=== PATIENT | female | born 1995 | race Caucasian/White ===

== ENCOUNTER 2018-07-15 22:06 | Emergency (ER) | payer OTHER ==
[2018-07-15 22:13] VITALS: TEMP 97.9
[2018-07-15] MEDS ORDERED: ONDANSETRON 4 MG/2 ML VIAL IVP STA (22:28)
[2018-07-15] MEDS ORDERED: SODIUM CHLORIDE 0.9% 1,000 ML IV STA (22:28)
--- NOTE | 2018-07-15 22:32 | ED ---
Abdominal Pain HPI - General Chief Complaint: Abdominal Pain Stated Complaint: Abd discomfort Time Seen by Provider: 07/15/18 22:28 Source: patient Mode of arrival: ambulatory Limitations: no limitations - History of Present Illness Initial Comments: Patient is a previously healthy 22-year-old female who presents the emergency department today for evaluation of epigastric abdominal discomfort and nausea which is been intermittent for a couple days duration but worse today. Patient reports that she's been feeling epigastric discomfort after eating and occasional vague abdominal discomfort throughout the abdomen which occurs intermittently not related to eating. Patient reports that she's been having waves of nausea which seemed to have an worse at nighttime or when she is sleeping. She reports that her last menstrual cycle was June 19 but she is sexually active there is possibility that she is . - Related Data Home Medications Medication Instructions Recorded Confirmed Albuterol Inhaler [Ventolin Hfa 1 - 2 puff INHALATION RT-Q6H PRN 07/15/18 Inhaler] Citalopram Hydrobromide 20 mg PO DAILY 07/15/18 07/15/18 [Citalopram HBr] Ibuprofen [Motrin] 800 mg PO TID PRN 07/15/18 07/15/18 levETIRAcetam 500 mg PO Q12H 07/15/18 07/15/18 metFORMIN HCL 500 mg PO BID 07/15/18 07/15/18 Allergies Allergy/AdvReac Type Severity Reaction Status Date / Time No Known Allergies Allergy Verified 07/15/18 22:42 Review of Systems ROS Statement: Those systems with pertinent positive or pertinent negative responses have been documented in the HPI. ROS Other: All systems not noted in ROS Statement are negative. Past Medical History Past Medical History: Asthma, Seizure Disorder Additional Past Medical History / Comment(s): PCOS, sciatica History of Any Multi-Drug Resistant Organisms: None Reported Past Surgical History: No Surgical Hx Reported Past Psychological History: Anxiety, Depression Smoking Status: Never smoker Past Alcohol Use History: Rare Past Drug Use History: None Reported General Exam - General Exam Comments Initial Comments: Physical Exam GENERAL: Morbidly obese Patient is well-developed and well-nourished. Patient is nontoxic and well- hydrated and is in no distress. HENT: Normocephalic, Atraumatic. EYES: PERRL, EOMI PULMONARY: Unlabored respirations. No audible rales rhonchi or wheezing was noted. CARDIOVASCULAR: There is a regular rate and rhythm without any murmurs gallops or rubs. ABDOMEN: Obese Negative Jones sign Soft and nontender with normal bowel sounds. SKIN: Skin is clear with no lesions or rashes and otherwise unremarkable. : Deferred NEUROLOGIC: Patient is alert and oriented x3. Moving all extremities spontaneously MUSCULOSKELETAL: Normal extremities with adequate strength and full range of motion. No lower extremity swelling or edema. No calf tenderness. PSYCHIATRIC: Normal psychiatric evaluation. Limitations: no limitations Limitations: no limitations Course Vital Signs 07/15/18 07/16/18 22:08 01:10 Temperature 97.9 F Pulse Rate 104 H 80 Respiratory 18 16 Rate Blood Pressure 145/95 151/93 O2 Sat by Pulse 100 98 Oximetry Medical Decision Making - Medical Decision Making The patient was seen and evaluated history was obtained from the patient Patient with intermittent waves of nausea as well as occasional epigastric abdominal discomfort Labs and imaging were ordered and sent Zofran was given as well as IV fluids Labs reveal mildly elevated transaminases ultrasound of the gallbladder was ordered which revealed no acute findings All results were discussed with the patient, patient's mother does have a history of autoimmune hepatitis, I advised patient she needs follow-up with primary care for possible referral to GI for further evaluation of abnormal transaminases. I will discharge patient home with oral Zofran as she is feeling resolved at time of reevaluation patient's agreeable to plan for discharge home all questions pertaining care were answered patient discharged home in stable condition. - Lab Data Result diagrams: 07/15/18 22:40 07/15/18 22:40 Lab Results 07/15/18 07/15/18 07/15/18 Range/Units 22:35 22:35 22:40 WBC (3.8-10.6) k/uL RBC (3.80-5.40) m/uL Hgb (11.4-16.0) gm/dL Hct (34.0-46.0) % MCV (80.0-100.0) fL MCH (25.0-35.0) pg MCHC (31.0-37.0) g/dL RDW (11.5-15.5) % Plt Count (150-450) k/uL Neutrophils % % Lymphocytes % % Monocytes % % Eosinophils % % Basophils % % Neutrophils # (1.3-7.7) k/uL Lymphocytes # (1.0-4.8) k/uL Monocytes # (0-1.0) k/uL Eosinophils # (0-0.7) k/uL Basophils # (0-0.2) k/uL Sodium 140 (137-145) mmol/L Potassium 3.8 (3.5-5.1) mmol/L Chloride 104 (98-107) mmol/L Carbon Dioxide 24 (22-30) mmol/L Anion Gap 12 mmol/L BUN 13 (7-17) mg/dL Creatinine 0.56 (0.52-1.04) mg/dL Est GFR (CKD-EPI)AfAm >90 (>60 ml/min/1.73 sqM) Est GFR (CKD-EPI)NonAf >90 (>60 ml/min/1.73 sqM) Glucose 122 H (74-99) mg/dL Calcium 9.3 (8.4-10.2) mg/dL Total Bilirubin 0.5 (0.2-1.3) mg/dL AST 56 H (14-36) U/L ALT 78 H (9-52) U/L Alkaline Phosphatase 67 (38-126) U/L Total Protein 7.3 (6.3-8.2) g/dL Albumin 4.2 (3.5-5.0) g/dL Amylase 45 (30-110) U/L Lipase 102 (23-300) U/L Urine Color Yellow Urine Appearance Cloudy H (Clear) Urine pH 6.0 (5.0-8.0) Ur Specific [place] 1.021 (1.001-1.035) Urine Protein 1+ H (Negative) Urine Glucose (UA) Negative (Negative) Urine Ketones Negative (Negative) Urine Blood Negative (Negative) Urine Nitrite Negative (Negative) Urine Bilirubin Negative (Negative) Urine Urobilinogen 2.0 (<2.0) mg/dL Ur Leukocyte Esterase Negative (Negative) Urine RBC <1 (0-5) /hpf Urine WBC 5 (0-5) /hpf Ur Squamous Epith Cells 14 H (0-4) /hpf Urine Mucus Few H (None) /hpf Urine HCG, Qual Not Detected (Not Detectd) 07/15/18 Range/Units 22:40 WBC 5.5 (3.8-10.6) k/uL RBC 4.99 (3.80-5.40) m/uL Hgb 13.9 (11.4-16.0) gm/dL Hct 41.1 (34.0-46.0) % MCV 82.4 (80.0-100.0) fL MCH 27.8 (25.0-35.0) pg MCHC 33.7 (31.0-37.0) g/dL RDW 14.2 (11.5-15.5) % Plt Count 252 (150-450) k/uL Neutrophils % 60 % Lymphocytes % 28 % Monocytes % 7 % Eosinophils % 2 % Basophils % 1 % Neutrophils # 3.3 (1.3-7.7) k/uL Lymphocytes # 1.5 (1.0-4.8) k/uL Monocytes # 0.4 (0-1.0) k/uL Eosinophils # 0.1 (0-0.7) k/uL Basophils # 0.0 (0-0.2) k/uL Sodium (137-145) mmol/L Potassium (3.5-5.1) mmol/L Chloride (98-107) mmol/L Carbon Dioxide (22-30) mmol/L Anion Gap mmol/L BUN (7-17) mg/dL Creatinine (0.52-1.04) mg/dL Est GFR (CKD-EPI)AfAm (>60 ml/min/1.73 sqM) Est GFR (CKD-EPI)NonAf (>60 ml/min/1.73 sqM) Glucose (74-99) mg/dL Calcium (8.4-10.2) mg/dL Total Bilirubin (0.2-1.3) mg/dL AST (14-36) U/L ALT (9-52) U/L Alkaline Phosphatase (38-126) U/L Total Protein (6.3-8.2) g/dL Albumin (3.5-5.0) g/dL Amylase (30-110) U/L Lipase (23-300) U/L Urine Color Urine Appearance (Clear) Urine pH (5.0-8.0) Ur Specific [place] (1.001-1.035) Urine Protein (Negative) Urine Glucose (UA) (Negative) Urine Ketones (Negative) Urine Blood (Negative) Urine Nitrite (Negative) Urine Bilirubin (Negative) Urine Urobilinogen (<2.0) mg/dL Ur Leukocyte Esterase (Negative) Urine RBC (0-5) /hpf Urine WBC (0-5) /hpf Ur Squamous Epith Cells (0-4) /hpf Urine Mucus (None) /hpf Urine HCG, Qual (Not Detectd) Disposition Clinical Impression: Abdominal pain, Elevated liver enzymes Disposition: HOME SELF-CARE Instructions (If sedation given, give patient instructions): Abdominal Pain (ED ) Is patient prescribed a controlled substance at d/c from ED?: No Referrals: Nonstaff,Physician [Primary Care Provider] - 1-2 days Time of Disposition: 01:03
[2018-07-15 23:02] LABS: Basophils % (A) 1 %; Eosinophils # (A) 0.1 k/uL (0-0.7); Eosinophils % (A) 2 %; HCT 41.1 % (34.0-46.0); HGB 13.9 gm/dL (11.4-16.0); Lymphocytes # (A) 1.5 k/uL (1.0-4.8); Lymphocytes % (A) 28 %; MCH 27.8 pg (25.0-35.0); MCHC 33.7 g/dL (31.0-37.0); MCV 82.4 fL (80.0-100.0); Mean Platelet Volume 7.3; Monocytes # (A) 0.4 k/uL (0-1.0); Monocytes % (A) 7 %; Neutrophils # (A) 3.3 k/uL (1.3-7.7); Neutrophils % (A) 60 %; Platelet Count 252 k/uL (150-450); RBC 4.99 m/uL (3.80-5.40); RDW 14.2 % (11.5-15.5); WBC 5.5 k/uL (3.8-10.6)
[2018-07-15 23:05] LABS: Appearance,Urine Cloudy (Clear); Bilirubin,Urine Negative (Negative); Blood,Urine Negative (Negative); Color,Urine Yellow; Glucose,Urine (UA) Negative (Negative); Ketones,Urine Negative (Negative); Leukocyte Esterase,Urine Negative (Negative); Mucus,Urine Few /hpf; Nitrite,Urine Negative (Negative); Protein,Urine 1+ (Negative); RBC,Urine <1 /hpf (0-5); Specific Gravity,Urine 1.021 (1.001-1.035); Squamous Epithelial Cell,Urine 14 /hpf (0-4); WBC,Urine 5 /hpf (0-5)
[2018-07-15 23:12] LABS: ALT 78 U/L (9-52); AST 56 U/L (14-36); Albumin 4.2 g/dL (3.5-5.0); Alkaline Phosphatase 67 U/L (38-126); Amylase 45 U/L (30-110); Anion Gap 12 mmol/L; Blood Urea Nitrogen 13 mg/dL (7-17); Calcium 9.3 mg/dL (8.4-10.2); Carbon Dioxide 24 mmol/L (22-30); Chloride 104 mmol/L (98-107); Glucose 122 mg/dL (74-99); Lipase 102 U/L (23-300); Potassium 3.8 mmol/L (3.5-5.1); Sodium 140 mmol/L (137-145); Total Bilirubin 0.5 mg/dL (0.2-1.3); Total Protein 7.3 g/dL (6.3-8.2)
--- NOTE | 2018-07-15 23:29 | XR ---
EXAM: XR Abdomen, 1 View CLINICAL HISTORY: ITS.REASON XR Reason: abdominal pain TECHNIQUE: Frontal supine view of the abdomen/pelvis. COMPARISON: No relevant prior studies available. FINDINGS: Gastrointestinal tract: Fluid levels in the colon. No dilation. Bones/joints: Unremarkable. IMPRESSION: Fluid levels in the colon. No evidence for obstruction.
--- NOTE | 2018-07-16 00:09 | US ---
EXAM: US Abdomen Limited, Right Upper Quadrant CLINICAL HISTORY: ITS.REASON US Reason: Epigastric pain ,elevated LFTs TECHNIQUE: Real-time ultrasound of the right upper quadrant with image documentation. COMPARISON: No relevant prior studies available. FINDINGS: Liver: Fatty liver. No intrahepatic bile duct dilation. Gallbladder: Unremarkable. No gallstones. Common bile duct: Unremarkable as visualized. No stones. No dilation. Pancreas: Unremarkable as visualized. Right kidney: Unremarkable. No stones. No solid mass. No hydronephrosis. IMPRESSION: No acute findings.
[2018-07-16 01:12] VITALS: BP 151/93; PULSE 80; RESP 16
== END 2018-07-16 01:10 | disposition home or self-care (01) ==
LOC: EC 22:06
DX: R74.0 Nonspecific elevation of levels of transaminase and lactic acid dehydrogenase [LDH] (principal); J45.909 Unspecified asthma, uncomplicated; G40.909 Epilepsy, unspecified, not intractable, without status epilepticus; F41.9 Anxiety disorder, unspecified; F32.9 Major depressive disorder, single episode, unspecified; Z83.79 Family history of other diseases of the digestive system; Z79.84 Long term (current) use of oral hypoglycemic drugs; Z79.899 Other long term (current) drug therapy
CPT/HCPCS: 36415; 80053; 82150; 83690; 85025; 81001; 81025; 74018; 76705; 99284; 96374; 96361; J2405

== ENCOUNTER 2018-09-04 21:13 | Emergency (ER) | payer OTHER ==
[2018-09-04 22:03] VITALS: BP 124/75; PULSE 87; RESP 18; TEMP 98.3
--- NOTE | 2018-09-04 22:17 | ED ---
ENT HPI - General Chief complaint: ENT Stated complaint: Cotton Swab lodged Rt Inner Ear Time Seen by Provider: 09/04/18 22:06 Source: patient, RN notes reviewed, old records reviewed Mode of arrival: ambulatory Limitations: no limitations - History of Present Illness Initial comments: This is a 22-year-old female the ER for evaluation, patient resents today with right ear foreign body, Q-tip stuck in right ear. Denies any other injury. Patient was using Q-tip tonight, denies any bleeding. No hearing changes MD complaint: ear pain (Right) -: minutes(s) Location: R ear Severity: moderate Severity scale (1-10): 5 Quality: aching Consistency: constant Improves with: none Worsens with: none Context- Ear: recent illness - Related Data Home Medications Medication Instructions Recorded Confirmed Albuterol Inhaler [Ventolin Hfa 1 - 2 puff INHALATION RT-Q6H PRN 07/15/18 09/04/18 Inhaler] Citalopram Hydrobromide 20 mg PO DAILY 07/15/18 09/04/18 [Citalopram HBr] Ibuprofen [Motrin] 800 mg PO TID PRN 07/15/18 09/04/18 levETIRAcetam 500 mg PO Q12H 07/15/18 09/04/18 Previous Rx's Medication Instructions Recorded metFORMIN HCL 500 mg PO BID #60 tablet 09/04/18 Allergies Allergy/AdvReac Type Severity Reaction Status Date / Time No Known Allergies Allergy Verified 09/04/18 22:23 Review of Systems ROS Statement: Those systems with pertinent positive or pertinent negative responses have been documented in the HPI. ROS Other: All systems not noted in ROS Statement are negative. Past Medical History Past Medical History: Asthma, Seizure Disorder Additional Past Medical History / Comment(s): PCOS, sciatica History of Any Multi-Drug Resistant Organisms: None Reported Past Surgical History: No Surgical Hx Reported Past Psychological History: Anxiety, Depression Smoking Status: Never smoker Past Alcohol Use History: Rare Past Drug Use History: None Reported General Exam - General Exam Comments Initial Comments: Right ear foreign body Limitations: no limitations General appearance: alert, in no apparent distress Head exam: Present: atraumatic, normocephalic, normal inspection Eye exam: Present: normal appearance, PERRL, EOMI. Absent: scleral icterus, conjunctival injection, periorbital swelling ENT exam: Present: normal exam, mucous membranes moist Neck exam: Present: normal inspection. Absent: tenderness, meningismus, lymphadenopathy Respiratory exam: Present: normal lung sounds bilaterally. Absent: respiratory distress, wheezes, rales, rhonchi, stridor Cardiovascular Exam: Present: regular rate, normal rhythm, normal heart sounds. Absent: systolic murmur, diastolic murmur, rubs, gallop, clicks GI/Abdominal exam: Present: soft, normal bowel sounds. Absent: distended, tenderness, guarding, rebound, rigid Extremities exam: Present: normal inspection, full ROM, normal capillary refill. Absent: tenderness, pedal edema, joint swelling, calf tenderness Back exam: Present: normal inspection Neurological exam: Present: alert, oriented X3, CN II-XII intact Psychiatric exam: Present: normal affect, normal mood Skin exam: Present: warm, dry, intact, normal color. Absent: rash Course Vital Signs 09/04/18 21:59 Temperature 98.3 F Pulse Rate 87 Respiratory 18 Rate Blood Pressure 124/75 O2 Sat by Pulse 96 Oximetry Procedures - Foreign Body Removal Ear Location: ear canal (R) Foreign Body Suspected: other (Head of Q-tip) If Insect Suspected: ear canal inspected; intact TM, insect seen Foreign Body Removed: yes Foreign Body Removal Technique: instrumentation Tympanic Membrane Intact: Yes Patient Tolerated Procedure: well Complications: none Medical Decision Making - Medical Decision Making 22 female right ear foreign body. Foreign body removed without event. Patient can be discharged home Disposition Clinical Impression: Foreign body in right ear Disposition: HOME SELF-CARE Condition: Good Instructions (If sedation given, give patient instructions): Ear Foreign Body (ED) Prescriptions: metFORMIN HCL 500 mg PO BID #60 tablet Is patient prescribed a controlled substance at d/c from ED?: No Referrals: Nonstaff,Physician [Primary Care Provider] - 1-2 days
== END 2018-09-04 22:36 | disposition home or self-care (01) ==
LOC: EC 21:13
DX: T16.1XXA Foreign body in right ear, initial encounter (principal); J45.909 Unspecified asthma, uncomplicated; G40.909 Epilepsy, unspecified, not intractable, without status epilepticus; F32.9 Major depressive disorder, single episode, unspecified; F41.9 Anxiety disorder, unspecified; Z79.899 Other long term (current) drug therapy
CPT/HCPCS: 69200; 99283

== ENCOUNTER 2018-10-15 19:05 | Emergency (ER) | payer OTHER ==
[2018-10-15 19:27] VITALS: BP 140/105; PULSE 99; RESP 18; TEMP 97
--- NOTE | 2018-10-15 20:03 | XR ---
EXAMINATION TYPE: XR ankle complete RT DATE OF EXAM: 10/15/2018 CLINICAL HISTORY: Pain medial malleolus. TECHNIQUE: Frontal, lateral and oblique images of the right ankle are obtained. COMPARISON: None. FINDINGS: There is no acute fracture/dislocation evident in the right ankle. The ankle mortise appe ars within normal limits. Posterior talocalcaneal spurring is noted on lateral view. Suspect os yves num. Correlate for posterior ankle impingement syndrome. Moderate soft tissue swelling over the media l malleolus is seen. IMPRESSION: As above.
--- NOTE | 2018-10-15 21:04 | ED ---
General Adult HPI - General Chief complaint: Extremity Injury, Lower Stated complaint: ankle injury Time Seen by Provider: 10/15/18 19:34 Source: patient, EMS Mode of arrival: EMS Limitations: no limitations - History of Present Illness Initial comments: Patient is a 22-year-old female presenting to emergency Department with right foot pain. Patient states that it developed over the course of the last few days. Patient states that she was playing basketball and she might have accidentally twisted it but is unsure. Patient denies any traumatic injury to the ankle region. Patient states that she developed swelling and has difficulty with weightbearing. Patient states that at rest she has no pain but it is exacerbated with plantar flexion. Patient reports taking ibuprofen for pain control. Patient reports the pain to be localized on the posterior aspect of the lower leg. Patient denies any pain with inversion or eversion of the foot. Patient denies any numbness or tingling. Patient denies calf tenderness. - Related Data Home Medications Medication Instructions Recorded Confirmed Citalopram Hydrobromide 20 mg PO DAILY 07/15/18 10/15/18 [Citalopram HBr] Ibuprofen [Motrin] 800 mg PO TID PRN 07/15/18 10/15/18 levETIRAcetam 500 mg PO Q12H 07/15/18 10/15/18 Previous Rx's Medication Instructions Recorded metFORMIN HCL 500 mg PO BID #60 tablet 09/04/18 Allergies Allergy/AdvReac Type Severity Reaction Status Date / Time No Known Allergies Allergy Verified 10/15/18 20:36 Review of Systems ROS Statement: Those systems with pertinent positive or pertinent negative responses have been documented in the HPI. ROS Other: All systems not noted in ROS Statement are negative. Past Medical History Past Medical History: Asthma, Seizure Disorder Additional Past Medical History / Comment(s): PCOS, sciatica History of Any Multi-Drug Resistant Organisms: None Reported Past Surgical History: No Surgical Hx Reported Past Psychological History: Anxiety, Depression Smoking Status: Never smoker Past Alcohol Use History: Rare Past Drug Use History: None Reported General Exam Limitations: no limitations General appearance: alert, in no apparent distress Head exam: Present: atraumatic, normocephalic, normal inspection Eye exam: Present: normal appearance ENT exam: Present: normal exam Neck exam: Present: normal inspection Respiratory exam: Present: normal lung sounds bilaterally Cardiovascular Exam: Present: regular rate, normal rhythm, normal heart sounds Right Hip exam: Present: normal inspection, full ROM Upper Leg exam: Present: normal inspection, full ROM Knee exam: Present: normal inspection, full ROM Lower Leg exam: Present: normal inspection, full ROM. Absent: Homans' sign Ankle exam: Present: swelling. Absent: tenderness (No tenderness over the medial or lateral malleolus.) Foot/Toe exam: Present: tenderness (Midfoot tenderness with plantar flexion), swelling (Midfoot). Absent: tenderness at base of 5th metatarsal Course Vital Signs 10/15/18 19:08 Temperature 97.0 F L Pulse Rate 99 Respiratory 18 Rate Blood Pressure 140/105 O2 Sat by Pulse 99 Oximetry Medical Decision Making - Medical Decision Making Patient is a 22-year-old female presenting to emergency Department with right foot swelling. X-ray obtained is suggestive of talocalcaneal spurring. Patient advised to follow-up with orthopedics. Patient advised to return to emergency department if symptoms worsen. Patient advised to keep foot elevated and ice it. Patient advised to use ibuprofen or Tylenol and alternate between them For pain control. Case discussed with physician. Disposition Clinical Impression: Acute foot pain Disposition: HOME SELF-CARE Condition: Stable Instructions (If sedation given, give patient instructions): Ankle Sprain (ED), Foot Sprain (ED) Is patient prescribed a controlled substance at d/c from ED?: No Referrals: Sima Stanton MD [Primary Care Provider] - 1-2 days Greg Mack MD [STAFF PHYSICIAN] - 1-2 days Time of Disposition: 21:00
[2018-10-15] MEDS ORDERED: KETOROLAC 30 MG/ML 1 ML VIAL IVP STA (21:15)
== END 2018-10-15 21:24 | disposition home or self-care (01) ==
LOC: EC 19:05
DX: M79.671 Pain in right foot (principal); G40.909 Epilepsy, unspecified, not intractable, without status epilepticus; F41.9 Anxiety disorder, unspecified; F32.9 Major depressive disorder, single episode, unspecified; Z79.899 Other long term (current) drug therapy
CPT/HCPCS: 73610; 99283; 96374; J1885

== ENCOUNTER → 2018-11-13 | Outpatient (CLI) | payer OTHER ==
--- NOTE | 2018-11-13 12:13 | US ---
EXAMINATION TYPE: US abdomen complete DATE OF EXAM: 11/13/2018 COMPARISON: NONE CLINICAL HISTORY: E78.5 DYSLIPIDEMIA, R74.8 ELEV LIVER ENZYMES. EXAM MEASUREMENTS: Liver Length: 19.0 cm Gallbladder Wall: 0.2 cm CBD: 0.3 cm Spleen: 11.9 cm Right Kidney: 11.3 x 4.0 x 4.9 cm Left Kidney: 11.1 x 5.3 x 5.2 cm Morbidly obese patient, technically difficult limited study. Pancreas: obscured by overlying bowel gas, limited views Liver: Increased attenuation, decreased visualization of vessels suggestive of fatty infiltrate, rodriguez sures large Gallbladder: appears wnl, visualization somewhat limited Evidence for sonographic Jones's sign: no CBD: wnl Spleen: wnl Right Kidney: appears wnl, visualization somewhat limited Left Kidney: appears wnl, visualization somewhat limited Upper IVC: wnl Abd Aorta: bifurcation obscured by overlying bowel gas, otherwise wnl IMPRESSION: 1. Increased attenuation of liver is nonspecific may be seen with fatty infiltration or diffuse hepat ocellular disease. Correlate for splenomegaly.
--- NOTE | 2018-11-13 12:14 | US ---
EXAMINATION TYPE: US transvaginal DATE OF EXAM: 11/13/2018 COMPARISON: NONE CLINICAL HISTORY: N92.1 [place]. TECHNIQUE: Transvaginal (TV). Date of LMP: 10/23/18 EXAM MEASUREMENTS: Uterus: 7.3 x 3.4 x 4.4 cm Endometrial Stripe: 0.6 cm Right Ovary: Obscured by overlying bowel gas, obesity Left Ovary: Obscured by overlying bowel gas, obesity Morbidly obese patient, technically difficult, limited study. 1. Uterus: Anteverted 2. Endometrium: wnl 3. Right Ovary: Obscured by overlying bowel gas, obesity 4. Left Ovary: Obscured by overlying bowel gas, obesity 5. Bilateral Adnexa: wnl 6. Posterior cul-de-sac: wnl IMPRESSION: 1. No acute process. Note is made the ovaries were obscured by bowel gas.
== END | disposition home or self-care (01) ==
LOC: RADUSWWP 10:45
PROVIDERS: ATTEND Family Medicine
DX: E78.5 Hyperlipidemia, unspecified (principal); R74.8 Abnormal levels of other serum enzymes; N92.1 Excessive and frequent menstruation with irregular cycle
CPT/HCPCS: 76700; 76830

== ENCOUNTER → 2018-11-20 | Outpatient (CLI) | payer OTHER ==
--- NOTE | 2018-11-20 16:11 | MR ---
EXAMINATION TYPE: MR brain wo con DATE OF EXAM: 11/20/2018 COMPARISON: NONE HISTORY: Seizure TECHNIQUE: Multiplanar, multisequence imaging of the brain and brainstem is performed without IV cont rast. FINDINGS: Diffusion weighted images demonstrate no evidence of a recent infarct or other diffusion abnormality. There is no extraaxial fluid collection or significant white matter signal abnormality. The ventricu lar system and cisternal spaces are normal in size and appearance. The brain volume is age appropria te. T2 coronal weighted images show hippocampal gyri to appear symmetric and felt within normal limit s. Midline structures demonstrate normal morphology. The craniocervical junction appears within normal limits. Normal vascular flow voids are present. The visualized sinuses are clear and the globes are i ntact. IMPRESSION: Unremarkable study.
== END | disposition home or self-care (01) ==
LOC: RADMRIMAIN 15:17
PROVIDERS: ATTEND Psychiatry & Neurology Neurology
DX: G40.B09 Juvenile myoclonic epilepsy, not intractable, without status epilepticus (principal)
CPT/HCPCS: 70551

== ENCOUNTER 2019-01-23 02:49 | Emergency (ER) | payer OTHER ==
[2019-01-23 03:02] VITALS: BP 140/89; PULSE 69; RESP 19; TEMP 97.7
--- NOTE | 2019-01-23 03:08 | ED ---
Abdominal Pain HPI - General Chief Complaint: Abdominal Pain Stated Complaint: abd cramping,vaginal bleeding Time Seen by Provider: 01/23/19 03:05 Source: patient Mode of arrival: ambulatory Limitations: no limitations - History of Present Illness Initial Comments: The patient is a 23-year-old female with a history of PCO S and irregular menses who presents the ER today for evaluation of a heavy menstrual cycle since been going on for 4 days. Patient reports that she complains very light menstrual cycles and only needs to use a panty liner may be one tampon. She reports that for the past 2 days she's been needing multiple tampon Saturday which is atypical for her, she states that she read online that heavy bleeding could indicate a miscarriage. Patient has not missed any. She had not had a positive test or taken a home test but decided to come to the ER for evaluation. - Related Data Home Medications Medication Instructions Recorded Confirmed Citalopram Hydrobromide 20 mg PO DAILY 07/15/18 10/15/18 [Citalopram HBr] Ibuprofen [Motrin] 800 mg PO TID PRN 07/15/18 10/15/18 levETIRAcetam 500 mg PO Q12H 07/15/18 10/15/18 Previous Rx's Medication Instructions Recorded metFORMIN HCL 500 mg PO BID #60 tablet 09/04/18 Allergies Allergy/AdvReac Type Severity Reaction Status Date / Time No Known Allergies Allergy Verified 10/15/18 20:36 Review of Systems ROS Statement: Those systems with pertinent positive or pertinent negative responses have been documented in the HPI. ROS Other: All systems not noted in ROS Statement are negative. Past Medical History Past Medical History: Asthma, Seizure Disorder Additional Past Medical History / Comment(s): PCOS, sciatica History of Any Multi-Drug Resistant Organisms: None Reported Past Surgical History: No Surgical Hx Reported Past Psychological History: Anxiety, Depression Smoking Status: Never smoker Past Alcohol Use History: Rare Past Drug Use History: None Reported General Exam - General Exam Comments Initial Comments: Physical Exam GENERAL: Morbidly obese HENT: Normocephalic, Atraumatic. EYES: PERRL, EOMI No conjunctival pallor PULMONARY: Unlabored respirations. No audible rales rhonchi or wheezing was noted. CARDIOVASCULAR: There is a regular rate and rhythm without any murmurs gallops or rubs. ABDOMEN: Soft and nontender with normal bowel sounds. SKIN: Skin is clear with no lesions or rashes and otherwise unremarkable. : Deferred NEUROLOGIC: Patient is alert and oriented x3. Moving all extremities spontaneously MUSCULOSKELETAL: Normal extremities with adequate strength and full range of motion. No lower extremity swelling or edema. No calf tenderness. PSYCHIATRIC: Normal psychiatric evaluation. 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 Patient did see gynecology in the past 2 months and had a normal exam and normal Pap. - Lab Data Lab Results 01/23/19 01/23/19 Range/Units 03:30 03:30 Urine Color Light Yellow Urine Appearance Clear (Clear) Urine pH 5.5 (5.0-8.0) Ur Specific Rulo 1.003 (1.001-1.035) Urine Protein Negative (Negative) Urine Glucose (UA) Negative (Negative) Urine Ketones Negative (Negative) Urine Blood Moderate H (Negative) Urine Nitrite Negative (Negative) Urine Bilirubin Negative (Negative) Urine Urobilinogen <2.0 (<2.0) mg/dL Ur Leukocyte Esterase Negative (Negative) Urine RBC 1 (0-5) /hpf Urine WBC <1 (0-5) /hpf Ur Squamous Epith Cells 1 (0-4) /hpf Urine Bacteria Rare H (None) /hpf Urine HCG, Qual Not Detected (Not Detectd) Disposition Clinical Impression: Heavy menstrual bleeding Disposition: HOME SELF-CARE Condition: Stable Instructions (If sedation given, give patient instructions): Dysmenorrhea (ED), Menorrhagia (ED) Is patient prescribed a controlled substance at d/c from ED?: No Referrals: Sima Stanton MD [Primary Care Provider] - 1-2 days
[2019-01-23 03:48] LABS: Appearance,Urine Clear (Clear); Bacteria,Urine Rare /hpf; Bilirubin,Urine Negative (Negative); Blood,Urine Moderate (Negative); Color,Urine Light Yellow; Glucose,Urine (UA) Negative (Negative); Ketones,Urine Negative (Negative); Leukocyte Esterase,Urine Negative (Negative); Nitrite,Urine Negative (Negative); PH, Urine 5.5 (5.0-8.0); Protein,Urine Negative (Negative); RBC,Urine 1 /hpf (0-5); Specific Gravity,Urine 1.003 (1.001-1.035); Squamous Epithelial Cell,Urine 1 /hpf (0-4); Urobilinogen,Urine <2.0 mg/dL (<2.0); WBC,Urine <1 /hpf (0-5)
== END 2019-01-23 04:10 | disposition home or self-care (01) ==
LOC: EC 02:49
DX: N92.0 Excessive and frequent menstruation with regular cycle (principal); R10.9 Unspecified abdominal pain; E66.01 Morbid (severe) obesity due to excess calories; G40.909 Epilepsy, unspecified, not intractable, without status epilepticus; F41.9 Anxiety disorder, unspecified; F32.9 Major depressive disorder, single episode, unspecified; Z79.899 Other long term (current) drug therapy; Z68.43 Body mass index [BMI] 50.0-59.9, adult; Z32.02 Encounter for pregnancy test, result negative; Z87.42 Personal history of other diseases of the female genital tract
CPT/HCPCS: 81001; 81025; 99284

== ENCOUNTER → 2019-01-24 | Outpatient (CLI) | payer OTHER ==
[2019-01-26 08:50] LABS: Lamotrigine (Lamictal) 2.1 ug/mL (2.0-15.0)
[2019-01-26 09:20] LABS: Levetiracetam (Keppra) 6.9 ug/mL (3.0-60.0)
== END | disposition home or self-care (01) ==
LOC: LABWHC1 11:07
PROVIDERS: ATTEND Psychiatry & Neurology Neurology
DX: G40.B09 Juvenile myoclonic epilepsy, not intractable, without status epilepticus (principal)
CPT/HCPCS: 36415; 80175; 80177

== ENCOUNTER → 2019-01-27 | Outpatient (CLI) | payer OTHER ==
[2019-01-27 14:56] VITALS: BP 137/84; PULSE 79; RESP 16; TEMP 98.6; BMI 53.2
--- NOTE | 2019-01-27 15:37 | P.HPBAR ---
Bariatric H&P - History & Physicial H&P Date: 01/27/19 History & Physicial: Visit/CC: Initial Visit Patient initial contact: Initial weight: 136.333 kg Initial weight in pounds: 300.56 Height: 5 ft 3 in Initial BMI: 53.2 Last weight: Current weight: 136.333 kg Current weight in pounds: 300.56 Current BMI: 53.2 Orion body weight (based on NIH guidelines): 52.163 kg Excess body weight loss: 0.0% The patient is a 23 year-old F who presents for Bariatric Assessment. Patient here today for new patient bariatric evaluation. Interested in sleeve gastrectomy. BMI currently 53.2. History of right different weight loss methods over the years without success. Patient suffers from infertility, borderline hypertension, chronic back pain. Has a sleep study pending at this time. Was told she was prediabetic. History of epilepsy. No prior surgeries. No history of DVT or dysphagia in the past. No history of GERD symptoms. Review of Systems The patient denies any acute changes in vision or hearing, no dysphagia or odynophagia, no chest pain or shortness of breath, no dysuria or hematuria, no headache, no runny nose, no rectal bleeding or melena, no unexplained weight loss Past Medical History Past Medical History: Asthma, Seizure Disorder Additional Past Medical History / Comment(s): PCOS, sciatica History of Any Multi-Drug Resistant Organisms: None Reported Past Surgical History: No Surgical Hx Reported Past Psychological History: Anxiety, Depression Smoking Status: Never smoker Past Alcohol Use History: Rare Past Drug Use History: None Reported Surgical - Exam Vital Signs Temp Pulse Resp BP 98.6 F 79 16 137/84 01/27/19 14:48 01/27/19 14:48 01/27/19 14:48 01/27/19 14:48 Physical exam: General: Well-developed, well-nourished HEENT: Normocephalic, sclerae nonicteric Abdomen: Nontender, nondistended Extremities: No edema Neuro: Alert and oriented Bariatric Assessment & Plan (1) Morbid obesity with BMI of 50.0-59.9, adult Narrative/Plan: Surgical options and associated risks reviewed in detail with the patient. Remains interested in sleeve gastrectomy at this time. Await upcoming sleep study evaluation. We'll plan EGD and approximate 4 months. Follow-up in the clinic following that. Patient just now starting her first of 6 months of required to revise weight loss visits with her primary care physician. Status: Acute Bariatric Checklist Checklist: Plan: Checklist: EGD: 1. Hiatal hernia: 2. H. Pylori: HgbA1c: Vitamin D: Smoking: Never smoker Primary care physician referral: Psychiatry clearance: Cardiology clearance: Sleep study: Diet journal: VTE risk score: VTE risk level: Rehab needs at discharge:
[2019-01-27 16:13] LABS: HCT 40.7 % (34.0-46.0); HGB 13.8 gm/dL (11.4-16.0); MCH 28.1 pg (25.0-35.0); MCV 82.5 fL (80.0-100.0); Mean Platelet Volume 7.4; Platelet Count 280 k/uL (150-450); RBC 4.94 m/uL (3.80-5.40); RDW 14.4 % (11.5-15.5); WBC 5.8 k/uL (3.8-10.6)
[2019-01-28 00:28] LABS: African American GFR (CKD) 147.9 (60.0-200.0); Albumin 4.2 g/dL (3.80-4.90); Anion Gap 9.4 mmol/L (4.00-12.00); BUN/Creat Ratio 16.67 Ratio (12.00-20.00); Carbon Dioxide 25.6 mmol/L (21.6-31.8); Globulin 2.1 g/dL (1.6-3.3); Potassium 4.1 mmol/L (3.5-5.5); Total Bilirubin 0.4 mg/dL (0.3-1.2); Total Protein 6.3 g/dL (6.2-8.2)
[2019-01-28 00:54] LABS: Hemoglobin A1C 5.6 % (4.0-6.0)
== END | disposition home or self-care (01) ==
LOC: BARWHC3 13:56
PROVIDERS: ATTEND Surgery
DX: E66.01 Morbid (severe) obesity due to excess calories (principal); E55.9 Vitamin D deficiency, unspecified; K90.89 Other intestinal malabsorption; Z68.43 Body mass index [BMI] 50.0-59.9, adult
CPT/HCPCS: 84425; 80053; 82607; 83540; 85027; 82306; 83036; 93005; 36415; G0463; 99211

== ENCOUNTER 2019-05-15 07:09 | Day surgery (SDC) | payer OTHER ==
[2019-05-12 16:14] VITALS: BMI 52.6
[~2019-05-15 07:09] MED LIST: LACTATED RINGERS 1,000 ML IV SCH; LIDOCAINE 1% 20 ML VIAL (10MG/ML) FOR IV START INTRADERMA PRN
[2019-05-15] MEDS ORDERED: LACTATED RINGERS 1,000 ML IV ONE (07:22)
[2019-05-15 07:30] VITALS: TEMP 97.5
[2019-05-15 07:33] LABS: Glucose,Whole Blood 134 mg/dL (75-99)
[2019-05-15] MEDS ORDERED: PROPOFOL 10 MG/ML 20 ML VIAL IV ONE (07:38)
[2019-05-15] MEDS ORDERED: LIDOCAINE 1% INJ 10MG/ML (20 ML MDV) ONE (07:38)
--- NOTE | 2019-05-15 08:08 | P.GSHP ---
History of Present Illness H&P Date: 05/15/19 Chief Complaint: reflux patient here today for EGD. Patient being worked up for sleeve gastrectomy. Denies dysphagia. No abdominal pain. Past Medical History Past Medical History: Asthma, Seizure Disorder Additional Past Medical History / Comment(s): PCOS, sciatica. LAST SEIZURE 2012 History of Any Multi-Drug Resistant Organisms: None Reported Past Surgical History: No Surgical Hx Reported Past Anesthesia/Blood Transfusion Reactions: No Reported Reaction Additional Past Anesthesia/Blood Transfusion Reaction / Comment(s): NO PRIOR ANESTHESIA HX Smoking Status: Never smoker - Past Family History Mother Family Medical History: No Reported History Medications and Allergies Home Medications Medication Instructions Recorded Confirmed Type Citalopram Hydrobromide 20 mg PO DAILY 07/15/18 05/15/19 History [Citalopram HBr] Ibuprofen [Motrin] 800 mg PO TID PRN 07/15/18 05/12/19 History levETIRAcetam 500 mg PO Q12H 07/15/18 05/15/19 History metFORMIN HCL 500 mg PO BID #60 tablet 09/04/18 05/15/19 Rx Ergocalciferol [Vitamin D2 50,000 unit PO WEEKLY 01/27/19 05/15/19 History (DRISDOL)] lamoTRIgine [LaMICtal] 75 mg PO BID 01/27/19 05/15/19 History Folic Acid 1 mg PO DAILY 05/12/19 05/15/19 History Allergies Allergy/AdvReac Type Severity Reaction Status Date / Time No Known Allergies Allergy Verified 05/15/19 07:33 Surgical - Exam Vital Signs Temp Pulse Resp BP Pulse Ox 97.5 F L 92 14 149/99 8 L 05/15/19 07:28 05/15/19 07:28 05/15/19 07:28 05/15/19 07:28 05/15/19 07:28 Physical exam: General: Well-developed, well-nourished HEENT: Normocephalic, sclerae nonicteric Abdomen: Nontender, nondistended Extremities: No edema Neuro: Alert and oriented Results - Labs Abnormal Lab Results - Last 24 Hours (Table) 05/15/19 Range/Units 07:31 POC Glucose (mg/dL) 134 H (75-99) mg/dL Assessment and Plan (1) Reflux esophagitis Narrative/Plan: Will proceed with upper endoscopy at this time. Current Visit: Yes Status: Acute Code(s): K21.0 - GASTRO-ESOPHAGEAL REFLUX DISEASE WITH ESOPHAGITIS SNOMED Code(s): 222188950
--- NOTE | 2019-05-15 08:14 | P.PCN ---
Date of Procedure: 05/15/19 Procedure(s) Performed: Preoperative Dx: GERD, presurgical Postoperative Dx: mild gastritis Procedure: EGD with Bx Anesthesia: Sedation Endoscopist: Dr. Serrano Specimens: antrum Endoscopic Procedure: The patient was on the endoscopy table in the left decubitus position. The Olympus gastroscope was inserted into the oropharynx and passed under direct visualization to the region of the third portion of the duodenum. From that point the scope was slowly withdrawn inspecting all surfaces carefully. There were no neoplastic inflammatory or polypoid lesions throughout the duodenum. The pylorus was widely patent. The stomach was carefully inspected. There was mild gastritis present. A biopsy of the antrum took place to rule out H. pylori. Retroflexion revealed a normal hiatus. The esophagus was then carefully examined. There were no neoplastic inflammatory or polypoid lesions throughout the visualized esophagus. The patient was then taken to the recovery room in stable condition per anesthesia guidelines. Recommendations: await biopsy results. Continue preop bariatric workup.
[2019-05-15 08:21] VITALS: RESP 16
[2019-05-15 08:39] VITALS: BP 135/99; PULSE 82
== END 2019-05-15 08:52 | disposition home or self-care (01) ==
LOC: ORWHC2ENDO 07:09
PROVIDERS: ATTEND Surgery
DX: K29.50 Unspecified chronic gastritis without bleeding (principal); K21.9 Gastro-esophageal reflux disease without esophagitis; E11.9 Type 2 diabetes mellitus without complications; J45.909 Unspecified asthma, uncomplicated; M54.30 Sciatica, unspecified side; G40.909 Epilepsy, unspecified, not intractable, without status epilepticus; E28.2 Polycystic ovarian syndrome; F41.9 Anxiety disorder, unspecified; F32.9 Major depressive disorder, single episode, unspecified; E66.01 Morbid (severe) obesity due to excess calories; Z68.43 Body mass index [BMI] 50.0-59.9, adult; Z79.899 Other long term (current) drug therapy; Z79.84 Long term (current) use of oral hypoglycemic drugs; Z79.1 Long term (current) use of non-steroidal anti-inflammatories (NSAID)
CPT/HCPCS: 81025; 88305; 43239; J2001; J2704

== ENCOUNTER → 2019-06-15 | Outpatient (CLI) | payer OTHER ==
[2019-06-15 10:00] VITALS: BMI 52.4
== END | disposition home or self-care (01) ==
LOC: BARWHC3 08:58
PROVIDERS: ATTEND Surgery
DX: E66.01 Morbid (severe) obesity due to excess calories (principal); Z68.43 Body mass index [BMI] 50.0-59.9, adult
CPT/HCPCS: 97804

== ENCOUNTER → 2019-06-16 | Outpatient (CLI) | payer OTHER ==
--- NOTE | 2019-06-16 12:54 | XR ---
EXAMINATION TYPE: XR chest 2V DATE OF EXAM: 06/16/2019 COMPARISON: NONE HISTORY: Trauma and pain, S20.20XA TECHNIQUE: Frontal and lateral views of the chest are obtained. FINDINGS: There is no focal air space opacity, pleural effusion, or pneumothorax seen. The cardiac silhouette size is within normal limits. The osseous structures are intact. Bone scan may be of sandhya efit for increased sensitivity as indicated. IMPRESSION: No acute cardiopulmonary process.
== END | disposition home or self-care (01) ==
LOC: LABWHC1 11:58
PROVIDERS: ATTEND Emergency Medicine
DX: S20.20XA Contusion of thorax, unspecified, initial encounter (principal); Z32.00 Encounter for pregnancy test, result unknown; N92.6 Irregular menstruation, unspecified
CPT/HCPCS: 71046; 81025

== ENCOUNTER → 2019-06-16 | Outpatient (CLI) | payer OTHER ==
--- NOTE | 2019-06-16 16:31 | P.BASOAP ---
Subjective Progress Note Date: 06/16/19 Principal diagnosis: Morbid obesity Patient returns today for evaluation. Underwent EGD on 05/15. Mild gastritis seen. She has her final to revise weight loss visit tomorrow. She believes she is ready to schedule sleeve gastrectomy. Remains interested in sleeve gastrectomy. She said she never did have her sleep study that was previously ordered by her primary care. Objective - Exam Abdomen: Soft, nontender, nondistended Assessment/Plan (1) Morbid obesity with BMI of 50.0-59.9, adult Narrative/Plan: Patient remains interested in sleeve gastrectomy. Await final documentation. We'll tenderly schedule sleeve gastrectomy late July or early August. The risks of bleeding, infection, stenosis, stricture, leak, abscess, fistula formation, peritonitis, poor weight loss, reflux, vomiting, conversion to an open procedure, aborting sleeve gastrectomy, [place], PE, DVT, and were discussed. The patient understands and wishes to proceed. Plan: Date: Initial Weight: 136.333 kg Initial BMI: Current Weight: Current BMI: Type of Surgery: Total Volume in Band: Previous Volume: Volume Removed: Volume Added: Band Size:
[2019-06-16 16:49] VITALS: BP 136/86; PULSE 93; TEMP 97.7; BMI 52.4
== END ==
LOC: BARWHC3 15:14
PROVIDERS: ATTEND Surgery
DX: E66.01 Morbid (severe) obesity due to excess calories (principal); Z68.43 Body mass index [BMI] 50.0-59.9, adult
CPT/HCPCS: 99211

== ENCOUNTER → 2019-06-19 | Outpatient (CLI) | payer OTHER ==
--- NOTE | 2019-06-19 18:01 | XR ---
EXAMINATION TYPE: XR shoulder complete RT DATE OF EXAM: 06/19/2019 COMPARISON: NONE HISTORY: Shoulder pain TECHNIQUE: 3 views FINDINGS: I see no fracture nor dislocation. Joint spaces are normal. There are no pathologic calcifi cations. The glenohumeral joint is intact. IMPRESSION: Negative right shoulder exam. No fracture seen.
== END | disposition home or self-care (01) ==
LOC: RAD 17:36
PROVIDERS: ATTEND Emergency Medicine
DX: M25.511 Pain in right shoulder (principal)

== ENCOUNTER → 2019-07-06 | Outpatient (CLI) | payer OTHER ==
[2019-07-06 14:21] LABS: Basophils % (A) 1 %; Eosinophils # (A) 0.1 k/uL (0-0.7); Eosinophils % (A) 2 %; HCT 40.4 % (34.0-46.0); HGB 13.1 gm/dL (11.4-16.0); Lymphocytes # (A) 1.6 k/uL (1.0-4.8); Lymphocytes % (A) 26 %; MCH 27.3 pg (25.0-35.0); MCHC 32.4 g/dL (31.0-37.0); MCV 84.3 fL (80.0-100.0); Mean Platelet Volume 8.1; Monocytes # (A) 0.3 k/uL (0-1.0); Monocytes % (A) 4 %; Neutrophils # (A) 4.1 k/uL (1.3-7.7); Neutrophils % (A) 67 %; Platelet Count 242 k/uL (150-450); RBC 4.79 m/uL (3.80-5.40); RDW 14.5 % (11.5-15.5); WBC 6.2 k/uL (3.8-10.6)
[2019-07-06 14:37] LABS: ALT 32 U/L (4-34); AST 32 U/L (14-36); African American GFR (CKD) >90 (>60 ml/min/1.73 sqM); Albumin 3.9 g/dL (3.5-5.0); Alkaline Phosphatase 45 U/L (38-126); Anion Gap 6 mmol/L; Blood Urea Nitrogen 8 mg/dL (7-17); Calcium 9.1 mg/dL (8.4-10.2); Carbon Dioxide 30 mmol/L (22-30); Chloride 103 mmol/L (98-107); Glucose 125 mg/dL (74-99); Non-African American GFR(CKD) >90 (>60 ml/min/1.73 sqM); Potassium 4.3 mmol/L (3.5-5.1); Sodium 139 mmol/L (137-145); Total Bilirubin 0.4 mg/dL (0.2-1.3); Total Protein 6.3 g/dL (6.3-8.2)
== END | disposition home or self-care (01) ==
LOC: LABPAT 11:59
PROVIDERS: ATTEND Surgery
DX: Z01.818 Encounter for other preprocedural examination (principal); Z01.812 Encounter for preprocedural laboratory examination
CPT/HCPCS: 36415; 80053; 85025; 93005

== ENCOUNTER → 2019-07-14 | Outpatient (CLI) | payer OTHER | END | disposition home or self-care (01) | LOC: LABWHC1 11:51 | PROVIDERS: ATTEND Psychiatry & Neurology Neurology | DX: G40.B09 Juvenile myoclonic epilepsy, not intractable, without status epilepticus (principal) | CPT/HCPCS: 36415; 80175 ==

== ENCOUNTER → 2019-10-23 | Outpatient (CLI) | payer OTHER ==
[2019-10-23 09:56] VITALS: BP 123/84; PULSE 91; RESP 16; TEMP 98.1; BMI 52.9
--- NOTE | 2019-10-23 10:27 | P.BASOAP ---
Subjective Progress Note Date: 10/23/19 Principal diagnosis: Morbid obesity Patient here today for preop evaluation. Last seen in June. Schedule for sleeve gastrectomy 11/15. Last EGD performed in May showed mild gastritis. No new complaints. Objective - Vital Signs Vital signs: Vital Signs Temp 98.1 F 10/23/19 09:53 Pulse 91 10/23/19 09:53 Resp 16 10/23/19 09:53 BP 123/84 10/23/19 09:53 Pulse Ox Intake & Output 10/22/19 10/23/19 10/23/19 18:59 06:59 18:59 Weight 135.488 kg - Exam Abdomen: Soft, nontender, nondistended Assessment/Plan (1) Morbid obesity with BMI of 50.0-59.9, adult Narrative/Plan: Patient doing well at this time. No changes to the history and physical since last visit. We'll proceed with sleeve gastrectomy 11/15. Check preop labs. The risks of bleeding, infection, stenosis, stricture, leak, abscess, fistula formation, peritonitis, poor weight loss, reflux, vomiting, conversion to an open procedure, aborting sleeve gastrectomy, [place], PE, DVT, and were discussed. The patient understands and wishes to proceed. Plan: Date: 10/23/19 Initial Weight: 136.333 kg Initial BMI: 53.2 Current Weight: 135.488 kg Current BMI: 52.9 Type of Surgery: Vertical Sleeve Gastrectomy Total Volume in Band: Previous Volume: Volume Removed: Volume Added: Band Size:
== END | disposition home or self-care (01) ==
LOC: BARWHC3 09:38
PROVIDERS: ATTEND Surgery
DX: Z53.9 Procedure and treatment not carried out, unspecified reason (principal)

== ENCOUNTER → 2019-11-09 | Outpatient (CLI) | payer OTHER ==
[2019-11-09 11:39] LABS: Basophils % (A) 0 %; Eosinophils # (A) 0.1 k/uL (0-0.7); Eosinophils % (A) 2 %; HCT 37.1 % (34.0-46.0); HGB 12.8 gm/dL (11.4-16.0); Lymphocytes # (A) 1.3 k/uL (1.0-4.8); Lymphocytes % (A) 26 %; MCH 29.1 pg (25.0-35.0); MCHC 34.6 g/dL (31.0-37.0); MCV 83.9 fL (80.0-100.0); Mean Platelet Volume 8.4; Monocytes # (A) 0.3 k/uL (0-1.0); Monocytes % (A) 6 %; Neutrophils # (A) 3.2 k/uL (1.3-7.7); Neutrophils % (A) 65 %; Platelet Count 238 k/uL (150-450); RBC 4.42 m/uL (3.80-5.40); RDW 13.7 % (11.5-15.5)
[2019-11-09 12:04] LABS: ALT 38 U/L (4-34); AST 31 U/L (14-36); African American GFR (CKD) >90 (>60 ml/min/1.73 sqM); Alkaline Phosphatase 40 U/L (38-126); Anion Gap 7 mmol/L; Blood Urea Nitrogen 8 mg/dL (7-17); Calcium 8.7 mg/dL (8.4-10.2); Carbon Dioxide 26 mmol/L (22-30); Chloride 103 mmol/L (98-107); Glucose 129 mg/dL (74-99); Non-African American GFR(CKD) >90 (>60 ml/min/1.73 sqM); Potassium 3.8 mmol/L (3.5-5.1); Sodium 136 mmol/L (137-145); Total Bilirubin 0.7 mg/dL (0.2-1.3); Total Protein 6.7 g/dL (6.3-8.2)
== END | disposition home or self-care (01) ==
LOC: LABPAT 10:59
PROVIDERS: ATTEND Surgery
DX: Z01.818 Encounter for other preprocedural examination (principal)
CPT/HCPCS: 36415; 80053; 85025

== ENCOUNTER 2019-11-16 07:45 | Inpatient (IN) | payer OTHER ==
[~2019-11-16 07:45] MED LIST changes: +DEXAMETHASONE SOD PHOSPHATE 10 MG/ML 1 ML VIAL IV ONE; -LACTATED RINGERS 1,000 ML IV SCH; +LIDOCAINE 1% (10MG/ML) FOR IV START INTRADERMA PRN; -LIDOCAINE 1% 20 ML VIAL (10MG/ML) FOR IV START INTRADERMA PRN
[2019-11-16] MEDS: ONDANSETRON 4 MG/2 ML VIAL IVP ONE ×2 (12:14→16:00)
[2019-11-16] MEDS: LACTATED RINGERS 1,000 ML IV SCH (12:14)
[2019-11-16] MEDS ORDERED: BUPIVACAINE (PF) 0.25% 30 ML VIAL SQ ONE (13:56)
--- NOTE | 2019-11-16 14:08 | P.GSHP ---
History of Present Illness H&P Date: 11/16/19 Chief Complaint: Morbid obesity 24-year-old female known to our service. Patient initially seen for evaluation of weight loss surgery January of last year. She has tried a variety of different weight loss methods. She is interested in sleeve gastrectomy. Several from chronic back pain, infertility, borderline hypertension. No previous surgeries. Last EGD showed mild gastritis. No history of DVT or dysphagia. BMI was 53 at initial evaluation. Past Medical History Past Medical History: Asthma, Seizure Disorder Additional Past Medical History / Comment(s): PCOS, sciatica. LAST SEIZURE 2012 History of Any Multi-Drug Resistant Organisms: None Reported Past Surgical History: No Surgical Hx Reported Past Anesthesia/Blood Transfusion Reactions: No Reported Reaction Additional Past Anesthesia/Blood Transfusion Reaction / Comment(s): NO PRIOR ANESTHESIA HX Smoking Status: Never smoker - Past Family History Mother Family Medical History: No Reported History Medications and Allergies Home Medications Medication Instructions Recorded Confirmed Type Citalopram Hydrobromide 20 mg PO DAILY 07/15/18 11/16/19 History [Citalopram HBr] levETIRAcetam 500 mg PO Q12H 07/15/18 11/16/19 History metFORMIN HCL 500 mg PO BID #60 tablet 09/04/18 11/16/19 Rx Ergocalciferol [Vitamin D2 50,000 unit PO WEEKLY 01/27/19 11/16/19 History (DRISDOL)] lamoTRIgine [LaMICtal] 175 mg PO BID 01/27/19 11/16/19 History Folic Acid 1 mg PO BID 05/12/19 11/16/19 History Allergies Allergy/AdvReac Type Severity Reaction Status Date / Time No Known Allergies Allergy Verified 10/23/19 09:55 Surgical - Exam Vital Signs Temp Pulse Resp BP Pulse Ox 97.8 F 76 16 128/73 97 11/16/19 12:02 11/16/19 12:02 11/16/19 12:11/16/19 12:11/16/19 12:02 Physical exam: General: Well-developed, well-nourished HEENT: Normocephalic, sclerae nonicteric Abdomen: Nontender, nondistended Extremities: No edema Neuro: Alert and oriented Assessment and Plan (1) Morbid obesity with BMI of 50.0-59.9, adult Narrative/Plan: 24-year-old female with morbid obesity. We'll proceed with laparoscopic sleeve gastrectomy, possible open at this time. The risks of bleeding, infection, stenosis, stricture, leak, abscess, fistula formation, peritonitis, poor weight loss, reflux, vomiting, conversion to an open procedure, aborting sleeve gastrectomy, [place], PE, DVT, and were discussed. The patient understands and wishes to proceed. Current Visit: No Status: Acute Code(s): E66.01 - MORBID (SEVERE) OBESITY DUE TO EXCESS CALORIES; Z68.43 - BODY MASS INDEX (BMI) 50.0-59.9, ADULT SNOMED Code(s): 580377827
[2019-11-16] MEDS ORDERED: MIDAZOLAM 2 MG/2 ML VIAL ONE (14:09)
[2019-11-16] MEDS ORDERED: fentaNYL (PF) 50 MCG/ML 2 ML AMP ONE (14:09)
[2019-11-16] MEDS ORDERED: PROPOFOL 10 MG/ML 20 ML VIAL IV ONE (14:09)
[2019-11-16] MEDS ORDERED: SUCCINYLCHOLINE CHLORIDE 100 MG/5 ML SYR IV ONE (14:09)
[2019-11-16] MEDS ORDERED: ROCURONIUM BROMIDE 10 MG/ML 5 ML VIAL IV ONE (14:09)
[2019-11-16] MEDS ORDERED: LIDOCAINE 1% INJ 10MG/ML (20 ML MDV) ONE (14:09)
[2019-11-16] MEDS ORDERED: ENOXAPARIN 40 MG/0.4 ML SYRINGE SQ ONE (14:09)
[2019-11-16] MEDS ORDERED: NEOSTIGMINE 1 MG/ML 10 ML VIAL ONE (14:09)
[2019-11-16] MEDS ORDERED: GLYCOPYRROLATE 0.2 MG/ML 2 ML VIAL ONE (14:09)
[2019-11-16] MEDS ORDERED: LACTATED RINGERS 1,000 ML IV ONE ×2 (14:57)
[2019-11-16] MEDS ORDERED: ENOXAPARIN 40 MG/0.4 ML SYRINGE SQ STA (15:03)
[2019-11-16] MEDS ORDERED: diphenhydrAMINE 50 MG/ML 1 ML VIAL IVP ONE (16:25)
[2019-11-16] MEDS: HYDROmorphone 0.5 MG/0.5 ML SYRINGE IVP PRN ×2 (16:40→17:06)
[2019-11-16] MEDS ORDERED: HYOSCYAMINE ORAL DROPS 1.875 MG/15 ML BOTTLE PO PRN (16:42)
[2019-11-16] MEDS ORDERED: diphenhydrAMINE 50 MG/ML 1 ML VIAL IVP PRN (16:42)
[2019-11-16] MEDS ORDERED: ACETAMINOPHEN IV (For NPO) 1,000 MG in EMPTY BAG 1 BAG IVPB ONE (16:42)
[2019-11-16] MEDS ORDERED: NALOXONE 0.4 MG/ML 1 ML VIAL IV PRN (16:42)
[2019-11-16] MEDS ORDERED: PROMETHAZINE INJ 25 MG/ML 1 ML VIAL IVPB ONE (16:47)
--- NOTE | 2019-11-16 16:48 | P.OP ---
Date of Procedure: 11/16/19 Procedure(s) Performed: PREOPERATIVE DIAGNOSIS: Morbid obesity POSTOPERATIVE DIAGNOSIS: Same PROCEDURE: Laparoscopic sleeve gastrectomy SURGEON: Maggie EBL: Minimal ANESTHESIA: General COMPLICATIONS: None OPERATIVE PROCEDURE: Patient was placed in the operating table in the supine position. She was placed under general anesthesia at that time. The abdomen was prepped and draped in sterile fashion after the patient was placed in lithotomy. A 5 mm optical trocar was used to enter the abdominal cavity in the left upper quadrant. Insufflation took place to 15 millimeters mercury. An additional right subxiphoid 5 mm trocar was then placed under direct visualization and then removed. 2 additional 5 mm trochars were placed in the right upper quadrant and left upper quadrant under direct visualization and a 15 mm trocar in the supraumbilical location. The liver was retracted using a medium Kristel liver retractor through the right subxiphoid trocar site. The hiatus was inspected. The patient had no visible hiatal hernia At that point I moved to the mid aspect of the greater curvature the stomach. The short gastric vasculature was divided using a LigaSure device proximally. I then switched and divided the short gastrics distally to a 3-4 cm from the pylorus. The dissection took place up to the left diaphragmatic crura at that point. The posterior short gastrics were likewise divided using the LigaSure device. Once the stomach was fully mobilized the blunt tipped 40-Armenian bougie dilator was advanced into the stomach and advanced all the way to the prepyloric location. A black echelon 60 stapler was utilized and fired tangentially across the antrum taking care to avoid narrowing at the incisura angularis. Subsequent firings of the stapler took place. A total of 4 green echelon 60 staplers with seam guard took place proximally staying on the outer edge of our dilator. The oral gastric tube was reinserted. The stomach was insufflated with approximately 100 mL of methylene blue. No evidence of leak or obstruction was seen. Tisseel fibrin glue was used along the length of the staple line. We did not fix the staple line to the adjacent omentum given the significant distance between the 2. The stomach remnant was removed from the 15 mm trocar site without di fficulty. The fascia at the 15 more site was closed using interrupted 0 Vicryl sutures with the laparoscopic suture passer and Anival Nieves technique. The insufflation was evacuated. The skin at all 5 incisions were closed using 4-0 Monocryl sutures. Skin glue was then applied. DISPOSITION: Stable to recovery room
[2019-11-16] MEDS: HYDROmorphone 1 MG/ML 1 ML SYRINGE IVP PRN ×2 (19:43→23:29)
[2019-11-16] MEDS: ALBUTEROL NEBULIZED 2.5 MG/3 ML INHALATION SCH (21:05)
[2019-11-16] MEDS: 0.9% NACL WITH KCL 20 MEQ/L 1,000 ML IV SCH (22:47)
[2019-11-16] MEDS: ONDANSETRON 4 MG/2 ML VIAL IVP PRN (23:28)
[2019-11-17 00:20] LABS: Glucose,Whole Blood 134 mg/dL (75-99)
[2019-11-17] MEDS ORDERED: levETIRAcetam IV 500 MG in SODIUM CHLORIDE 0.9% 100 ML IVPB STA (00:51)
[2019-11-17] MEDS: 0.9% NACL WITH KCL 20 MEQ/L 1,000 ML IV SCH ×2 (03:06→05:35)
[2019-11-17] MEDS: ENOXAPARIN 40 MG/0.4 ML SYRINGE SQ SCH ×2 (03:06→13:58)
[2019-11-17] MEDS: ONDANSETRON 4 MG/2 ML VIAL IVP PRN (05:27)
[2019-11-17] MEDS: SIMETHICONE 40 MG/0.6 ML DROPS 2,000 MG/30 ML BOTTLE PO PRN ×2 (05:36→16:28)
[2019-11-17 05:46] LABS: Glucose,Whole Blood 113 mg/dL (75-99)
[2019-11-17] MEDS: LACTATED RINGERS 1,000 ML IV SCH (07:22)
[2019-11-17] MEDS: HYDROmorphone 1 MG/ML 1 ML SYRINGE IVP PRN (07:29)
[2019-11-17] MEDS: PANTOPRAZOLE 40 MG/10 ML VIAL IV SCH (07:36)
[2019-11-17] MEDS: ALBUTEROL NEBULIZED 2.5 MG/3 ML INHALATION SCH ×4 (08:02→20:52)
[2019-11-17] MEDS ORDERED: LORazepam 2 MG/ML INJ IV PRN (08:47)
--- NOTE | 2019-11-17 08:58 | P.CONS ---
Review of Systems this is a pleasant 24 years old female with past medical history of asthma, seizure disorder, anxiety and depression. She is a patient of Dr. thompson.she was admitted because of her morbid obesity for elective laparoscopic sleeve gastrectomy.today is postoperative day #1. patient was seen walking the hallway with physical therapy with no problem. She has also vomiting with no blood. No bowel movement or passing gas. She has expected some pain at the surgical site. No chest pain or dyspnea. Vitals looks stable. Patient states that she has history of seizure and she follow up with Dr. 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 also she has history of depression, she feels chronically depressed but she denies suicidal or homicidal ideation. She follow up with [facility] as an outpatient. She denies smoking, alcohol or illicit drugs. I asked the patient to do a test she declined states it was done before surgery Past Medical History Past Medical History: Asthma, Seizure Disorder Additional Past Medical History / Comment(s): PCOS, sciatica. LAST SEIZURE 2012 History of Any Multi-Drug Resistant Organisms: None Reported Past Surgical History: No Surgical Hx Reported Past Anesthesia/Blood Transfusion Reactions: No Reported Reaction Additional Past Anesthesia/Blood Transfusion Reaction / Comm: NO PRIOR ANESTHESIA HX Past Psychological History: Anxiety, Depression Smoking Status: Never smoker Past Alcohol Use History: Rare Past Drug Use History: None Reported - Past Family History Mother Family Medical History: No Reported History Medications and Allergies Home Medications Medication Instructions Recorded Confirmed Type Citalopram Hydrobromide 20 mg PO DAILY 07/15/18 11/16/19 History [Citalopram HBr] levETIRAcetam 500 mg PO Q12H 07/15/18 11/16/19 History metFORMIN HCL 500 mg PO BID #60 tablet 09/04/18 11/16/19 Rx Ergocalciferol [Vitamin D2 50,000 unit PO WEEKLY 01/27/19 11/16/19 History (DRISDOL)] lamoTRIgine [LaMICtal] 175 mg PO BID 01/27/19 11/16/19 History Folic Acid 1 mg PO BID 05/12/19 11/16/19 History Allergies Allergy/AdvReac Type Severity Reaction Status Date / Time No Known Allergies Allergy Verified 10/23/19 09:55 Physical Exam Vitals: Vital Signs Temp Pulse Pulse Pulse Pulse Resp BP 11/17/19 08:09 92 11/17/19 08:04 94 11/17/19 07:00 98.5 F 91 16 152/94 11/17/19 03:24 11/17/19 01:04 99.0 F 89 20 149/88 11/16/19 23:00 98.4 F 93 18 124/82 11/16/19 21:06 11/16/19 18:27 98.4 F 92 18 141/90 11/16/19 17:57 98.1 F 93 18 144/93 11/16/19 17:27 98.1 F 89 18 147/79 11/16/19 17:15 98.1 F 91 20 147/79 11/16/19 16:56 81 18 130/64 11/16/19 16:41 74 16 130/64 11/16/19 16:26 68 20 113/58 11/16/19 16:11 96.8 F L 70 14 123/58 11/16/19 12:02 97.8 F 76 16 BP Pulse Ox 11/17/19 08:09 11/17/19 08:04 98 11/17/19 07:00 100 11/17/19 03:24 96 11/17/19 01:04 98 11/16/19 23:00 94 L 11/16/19 21:06 97 11/16/19 18:27 93 L 11/16/19 17:57 93 L 11/16/19 17:27 100 11/16/19 17:15 100 11/16/19 16:56 92 L 11/16/19 16:41 99 11/16/19 16:26 100 11/16/19 16:11 98 11/16/19 12:02 128/73 97 Intake and Output 11/16/19 11/17/19 11/17/19 22:59 06:59 14:59 Intake Total 750 Output Total 610 Balance 140 Intake: IV 750 Output: Urine 600 Estimated Blood Loss 10 Other: # Voids 1 Weight 133 kg -GENERAL: The patient is alert and oriented x3, not in any acute distress. obese HEENT: Pupils are round and equally reacting to light. EOMI. No scleral icterus. No conjunctival pallor. Normocephalic, atraumatic. No pharyngeal erythema. No thyromegaly. CARDIOVASCULAR: S1 and S2 present. No murmurs, rubs, or gallops. PULMONARY: Chest is clear to auscultation, no wheezing or crackles. -ABDOMEN: Soft, nontender, nondistended, normoactive bowel sounds. No palpable organomegaly.small surgical wounds are clean and closed MUSCULOSKELETAL: No joint swelling or deformity. EXTREMITIES: No cyanosis, clubbing, or pedal edema. NEUROLOGICAL: Gross neurological examination did not reveal any focal deficits. SKIN: No rashes. no petechiae. Results Labs: Abnormal Lab Results - Last 24 Hours (Table) 11/17/19 11/17/19 Range/Units 00:18 05:44 POC Glucose (mg/dL) 134 H 113 H (75-99) mg/dL Assessment and Plan Assessment: morbid obesity, status post laparoscopic sleeve gastrectomy History of seizure, on AED history of asthma, not an active issue Exact and depression, not an active issue Plan: this is a pleasant 24 years old female was admitted for elective sleeve gastrectomy for her obesity. Patient remains nothing by mouth and she's going for swallow evaluation of this morning. Once that was started patient can resume her oral doses of Keppra and Lamictal. Pain management and DVT prophylaxis as per primary surgical team. She is currently on Lovenox 40 mg twice daily. Labs and medication were reviewed.. Continue same treatment. Continue with symptomatic treatment. Resume home medication. Monitor lytes and vitals. DVT and GI prophylaxis. Further recommendations of the clinical course of the patient physical therapy: Pending thank you for consulting us
[2019-11-17 09:00] LABS: Basophils % (A) 0 %; Eosinophils % (A) 0 %; HCT 40.4 % (34.0-46.0); HGB 13.6 gm/dL (11.4-16.0); Lymphocytes % (A) 10 %; MCH 28.4 pg (25.0-35.0); MCHC 33.6 g/dL (31.0-37.0); MCV 84.6 fL (80.0-100.0); Monocytes # (A) 0.6 k/uL (0-1.0); Monocytes % (A) 5 %; Neutrophils # (A) 8.6 k/uL (1.3-7.7); Neutrophils % (A) 84 %; Platelet Count 295 k/uL (150-450); RBC 4.78 m/uL (3.80-5.40); RDW 13.7 % (11.5-15.5); WBC 10.2 k/uL (3.8-10.6)
[2019-11-17] MEDS ORDERED: levETIRAcetam IV 500 MG in SODIUM CHLORIDE 0.9% 100 ML IVPB SCH (09:00)
[2019-11-17 09:49] LABS: African American GFR (CKD) >90 (>60 ml/min/1.73 sqM); Anion Gap 10 mmol/L; Blood Urea Nitrogen 6 mg/dL (7-17); Calcium 8.6 mg/dL (8.4-10.2); Carbon Dioxide 26 mmol/L (22-30); Chloride 101 mmol/L (98-107); Magnesium 1.7 mg/dL (1.6-2.3); Non-African American GFR(CKD) >90 (>60 ml/min/1.73 sqM); Phosphorus 3.4 mg/dL (2.5-4.5); Potassium 4.2 mmol/L (3.5-5.1); Sodium 137 mmol/L (137-145)
--- NOTE | 2019-11-17 09:59 | FL ---
EXAMINATION TYPE: FL UGI DATE OF EXAM: 11/17/2019 CLINICAL HISTORY: Status post gastric sleeve [address] Loyd. 2oz [id number] The patient ingested contrast without difficulty or delay. Noted are postsurgical changes of gastric sleeve. There is no evidence for leak or obstruction. Contrast is noted within the duodenum. IMPRESSION: Post-surgical change of gastric sleeve without evidence for obstruction or leak at this point in time.
--- NOTE | 2019-11-17 10:41 | P.PN ---
<Whit Marie Leon - Last Filed: 11/17/19 10:36> Subjective Progress Note Date: 11/17/19 CHIEF COMPLAINT: morbid obesity HISTORY OF PRESENT ILLNESS: Patient is s/p sleeve gastrectomy. POD #1. Patient examined at the bedside. She reports mild nausea this morning after receiving D ilaudid. Esophagram completed this morning negative for leak or obstruction. Vital signs stable. She is afebrile. PHYSICAL EXAM: VITAL SIGNS: Reviewed. GENERAL: Well-developed in no acute distress. HEENT: No sclera icterus. Extraocular movements grossly intact. Moist buccal mucosa. Head is atraumatic, normocephalic. ABDOMEN: Soft. Nondistended. Surgical sites clean dry and intact. NEUROLOGIC: Alert and oriented. Cranial nerves II through XII grossly intact. ASSESSMENT: 1. Morbid obesity, status post sleeve gastrectomy PLAN: -Begin bariatric clear liquid diet -Incentive spirometry -Activity as tolerated -Pain control. Patient reports nausea with IV Dilaudid. Begin IV Toradol as needed Q 6 hours Nurse practitioner note has been reviewed by physician. Signing provider agrees with the documented findings, assessment, and plan of care. Objective - Vital Signs Vital signs: Vital Signs Temp 98.5 F 11/17/19 07:00 Pulse 92 11/17/19 08:09 Resp 16 11/17/19 09:19 BP 152/94 11/17/19 07:00 Pulse Ox 98 11/17/19 08:04 Intake & Output 11/16/19 11/17/19 11/17/19 18:59 06:59 18:59 Intake Total 1800 Output Total 10 600 Balance 1790 -600 Weight 133 kg Intake: IV 1800 Output: Urine 600 Estimated Blood Loss 10 Other: # Voids 1 - Labs CBC & Chem 7: 11/17/19 07:48 11/17/19 07:48 Labs: Abnormal Lab Results - Last 24 Hours (Table) 11/17/19 11/17/19 11/17/19 Range/Units 00:18 05:44 07:48 Neutrophils # 8.6 H (1.3-7.7) k/uL BUN (7-17) mg/dL Creatinine (0.52-1.04) mg/dL POC Glucose (mg/dL) 134 H 113 H (75-99) mg/dL 11/17/19 Range/Units 07:48 Neutrophils # (1.3-7.7) k/uL BUN 6 L (7-17) mg/dL Creatinine 0.51 L (0.52-1.04) mg/dL POC Glucose (mg/dL) (75-99) mg/dL <Tim Serrano - Last Filed: 11/17/19 17:24> Subjective As above. Patient complaining of mild upper abdominal pain. Upper GI shows no evidence of leak or obstruction. Vitals stable. Continue bariatric liquids. Reevaluate tomorrow. Ambulate. Objective - Vital Signs Vital signs: Vital Signs Temp 98.2 F 11/17/19 15:00 Pulse 81 11/17/19 15:00 Resp 18 11/17/19 15:48 BP 170/99 11/17/19 15:00 Pulse Ox 98 11/17/19 15:00 Intake & Output 11/16/19 11/17/19 11/17/19 18:59 06:59 18:59 Intake Total 1800 800 Output Total 10 600 Balance 1790 -600 800 Weight 133 kg 132.903 kg Intake: IV 1800 Intake, IV Titration 600 Amount Mvi, Adult No.4 with Vit 600 K 10 ml Thiamine 100 mg Folic Acid 1 mg Potassium Chloride 20 meq In Sodium Chloride 0.9% 1, 000 ml @ 100 mls/hr IV . BY DURATION [facility] Rx#: [id number] Oral 200 Output: Urine 600 Estimated Blood Loss 10 Other: # Voids 1 - Labs CBC & Chem 7: 11/17/19 07:48 11/17/19 07:48 Labs: Abnormal Lab Results - Last 24 Hours (Table) 11/17/19 11/17/19 11/17/19 Range/Units 00:18 05:44 07:48 Neutrophils # 8.6 H (1.3-7.7) k/uL BUN (7-17) mg/dL Creatinine (0.52-1.04) mg/dL POC Glucose (mg/dL) 134 H 113 H (75-99) mg/dL 11/17/19 Range/Units 07:48 Neutrophils # (1.3-7.7) k/uL BUN 6 L (7-17) mg/dL Creatinine 0.51 L (0.52-1.04) mg/dL POC Glucose (mg/dL) (75-99) mg/dL Assessment and Plan (1) Morbid obesity with BMI of 50.0-59.9, adult Current Visit: No Status: Acute Code(s): E66.01 - MORBID (SEVERE) OBESITY DUE TO EXCESS CALORIES; Z68.43 - BODY MASS INDEX (BMI) 50.0-59.9, ADULT SNOMED Code(s): 754727871
[2019-11-17] MEDS: lamoTRIgine 100 MG TAB PO SCH ×2 (10:53→20:26)
[2019-11-17] MEDS: 1: MVI, ADULT NO.4 WITH VIT K 10 ML, THIAMINE 100 MG, FOLIC ACID 1 MG, POTASSIUM CHLORID IV SCH ×18 (12:05→18:16)
[2019-11-17 12:13] VITALS: BMI 51.9
[2019-11-17] MEDS: KETOROLAC 30 MG/ML 1 ML VIAL IVP PRN (14:22)
[2019-11-17] MEDS: HYDROcodone/APAP 5-325MG 1 EACH TAB PO PRN (16:32)
[2019-11-17] MEDS ORDERED: ACETAMINOPHEN IV (For NPO) 1,000 MG in EMPTY BAG 1 BAG IVPB ONE (19:00)
[2019-11-18 00:09] LABS: Glucose,Whole Blood 95 mg/dL (75-99)
[2019-11-18] MEDS: 1: MVI, ADULT NO.4 WITH VIT K 10 ML, THIAMINE 100 MG, FOLIC ACID 1 MG, POTASSIUM CHLORID IV SCH ×12 (03:22→14:31)
[2019-11-18] MEDS: ENOXAPARIN 40 MG/0.4 ML SYRINGE SQ SCH ×2 (03:23→16:06)
[2019-11-18 05:57] LABS: Glucose,Whole Blood 129 mg/dL (75-99)
[2019-11-18 06:55] LABS: Basophils % (A) 0 %; Eosinophils # (A) 0.1 k/uL (0-0.7); Eosinophils % (A) 1 %; HCT 37.4 % (34.0-46.0); HGB 12.5 gm/dL (11.4-16.0); Lymphocytes # (A) 1.2 k/uL (1.0-4.8); Lymphocytes % (A) 15 %; MCH 28.2 pg (25.0-35.0); MCHC 33.3 g/dL (31.0-37.0); MCV 84.7 fL (80.0-100.0); Mean Platelet Volume 8.1; Monocytes # (A) 0.4 k/uL (0-1.0); Monocytes % (A) 5 %; Neutrophils # (A) 6.4 k/uL (1.3-7.7); Neutrophils % (A) 79 %; Platelet Count 247 k/uL (150-450); RBC 4.42 m/uL (3.80-5.40); WBC 8.1 k/uL (3.8-10.6)
[2019-11-18] MEDS: HYDROmorphone 1 MG/ML 1 ML SYRINGE IVP PRN ×3 (07:08→17:56)
[2019-11-18] MEDS: ONDANSETRON 4 MG/2 ML VIAL IVP PRN ×2 (07:33→14:34)
[2019-11-18] MEDS ORDERED: BISACODYL 5 MG TABLET.DR PO PRN (08:00)
[2019-11-18] MEDS: ALBUTEROL NEBULIZED 2.5 MG/3 ML INHALATION SCH ×4 (08:39→20:14)
[2019-11-18] MEDS ORDERED: levETIRAcetam IV 500 MG in SODIUM CHLORIDE 0.9% 100 ML IVPB SCH (09:00)
[2019-11-18] MEDS: PANTOPRAZOLE 40 MG/10 ML VIAL IV SCH (09:03)
[2019-11-18] MEDS: lamoTRIgine 100 MG TAB PO SCH ×2 (09:03→20:21)
[2019-11-18] MEDS: LACTATED RINGERS 1,000 ML IV SCH (09:11)
--- NOTE | 2019-11-18 10:10 | P.PN ---
<Whit Marie Leon - Last Filed: 11/18/19 10:08> Subjective Progress Note Date: 11/18/19 CHIEF COMPLAINT: morbid obesity HISTORY OF PRESENT ILLNESS: Patient is s/p sleeve gastrectomy. POD #2. Patient examined at the bedside. She reports her pain is improved this morning but she had a lot of pain last night and believes she ate too quickly and consumed too much at one time. She states her abdomen is sore this morning and she is afraid to drink fluids today. She did have a few bites of [place] ice and a few sips of water. PHYSICAL EXAM: VITAL SIGNS: Reviewed. GENERAL: Well-developed in no acute distress. HEENT: No sclera icterus. Extraocular movements grossly intact. Moist buccal mucosa. Head is atraumatic, normocephalic. ABDOMEN: Soft. Nondistended. Surgical sites clean dry and intact. NEUROLOGIC: Alert and oriented. Cranial nerves II through XII grossly intact. ASSESSMENT: 1. Morbid obesity, status post sleeve gastrectomy PLAN: -Continue bariatric clear liquid diet -Incentive spirometry -Activity as tolerated -Pain control -Discharge home when patient is able to tolerate adequate amounts of fluids. Possibly tomorrow Nurse practitioner note has been reviewed by physician. Signing provider agrees with the documented findings, assessment, and plan of care. Objective - Vital Signs Vital signs: Vital Signs Temp 98.5 F 11/18/19 07:00 Pulse 102 H 11/18/19 07:00 Resp 18 11/18/19 07:00 BP 152/93 11/18/19 07:00 Pulse Ox 98 11/18/19 07:00 Intake & Output 11/17/19 11/18/19 11/18/19 18:59 06:59 18:59 Intake Total 0913.135 9208.667 Balance 3796.323 0506.667 Weight 132.903 kg Intake: Intake, IV Titration 4445.161 3204.667 Amount 0.9% NaCl with KCl 20 Meq 100 /l 1,000 ml @ 100 mls/hr IV .BY DURATION [facility] Rx#: [id number] ACETAMINOPHEN IV (For NPO 400 ) 1,000 mg In Empty Bag 1 bag @ 400 mls/hr IVPB ONCE ONE Rx#:[id number] Mvi, Adult No.4 with Vit 1196.667 931.667 K 10 ml Thiamine 100 mg Folic Acid 1 mg Potassium Chloride 20 meq In Sodium Chloride 0.9% 1, 000 ml @ 100 mls/hr IV . BY DURATION [facility] Rx#: [id number] Oral 200 Other: # Voids 1 - Labs CBC & Chem 7: 11/18/19 06:22 11/17/19 07:48 Labs: Abnormal Lab Results - Last 24 Hours (Table) 11/18/19 Range/Units 05:56 POC Glucose (mg/dL) 129 H (75-99) mg/dL <Tim Serrano - Last Filed: 11/18/19 20:38> Subjective As above. Patient says her pain is gradually Improving. Better oral intake. White blood cell count Remains normal. Afebrile with normal heart rate currently. Continue to monitor liquid intake. Possible discharge tomorrow. Objective - Vital Signs Vital signs: Vital Signs Temp 98.7 F 11/18/19 15:00 Pulse 85 11/18/19 15:00 Resp 16 11/18/19 15:00 BP 135/91 11/18/19 15:00 Pulse Ox 98 11/18/19 15:00 Intake & Output 11/18/19 11/18/19 11/19/19 06:59 18:59 06:59 Intake Total 2431.667 540 Balance 2431.667 540 Weight 132.903 kg Intake: Intake, IV Titration 2431.667 Amount 0.9% NaCl with KCl 20 Meq 1100 /l 1,000 ml @ 100 mls/hr IV .BY DURATION [facility] Rx#: [id number] ACETAMINOPHEN IV (For NPO 400 ) 1,000 mg In Empty Bag 1 bag @ 400 mls/hr IVPB ONCE ONE Rx#:[id number] Mvi, Adult No.4 with Vit 931.667 K 10 ml Thiamine 100 mg Folic Acid 1 mg Potassium Chloride 20 meq In Sodium Chloride 0.9% 1, 000 ml @ 100 mls/hr IV . BY DURATION [facility] Rx#: [id number] Oral 540 Other: # Voids 1 3 - Labs CBC & Chem 7: 11/18/19 06:22 11/17/19 07:48 Labs: Abnormal Lab Results - Last 24 Hours (Table) 11/18/19 11/18/19 11/18/19 Range/Units 05:56 11:34 18:06 POC Glucose (mg/dL) 129 H 101 H 108 H (75-99) mg/dL Assessment and Plan (1) Morbid obesity with BMI of 50.0-59.9, adult Current Visit: No Status: Acute Code(s): E66.01 - MORBID (SEVERE) OBESITY DUE TO EXCESS CALORIES; Z68.43 - BODY MASS INDEX (BMI) 50.0-59.9, ADULT SNOMED Code(s): 139827221
[2019-11-18] MEDS: HYDROcodone/APAP 5-325MG 1 EACH TAB PO PRN ×2 (10:14→21:53)
--- NOTE | 2019-11-18 10:22 | P.PN ---
Subjective this is a pleasant 24 years old female with past medical history of asthma, seizure disorder, anxiety and depression. She is a patient of Dr. thompson.she was admitted because of her morbid obesity for elective laparoscopic sleeve gastrectomy.today is postoperative day #1. patient was seen walking the hallway with physical therapy with no problem. She has also vomiting with no blood. No bowel movement or passing gas. She has expected some pain at the surgical site. No chest pain or dyspnea. Vitals looks stable. Patient states that she has history of seizure and she follow up with Dr. 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 also she has history of depression, she feels chronically depressed but she denies suicidal or homicidal ideation. She follow up with [facility] as an outpatient. She denies smoking, alcohol or illicit drugs. I asked the patient to do a test she declined states it was done b efore surgery 11/18/2019 Patient awake and oriented. Pain is tolerated the surgical site. She started on liquid diet, so Keppra was switched from IV dose to oral dose. vitals and labs are stable, sugar control. she is on Lovenox 40 mg twice a day Objective - Vital Signs Vital signs: Vital Signs Temp 98.5 F 11/18/19 07:00 Pulse 102 H 11/18/19 07:00 Resp 18 11/18/19 07:00 BP 152/93 11/18/19 07:00 Pulse Ox 98 11/18/19 07:00 Intake & Output 11/17/19 11/18/19 11/18/19 18:59 06:59 18:59 Intake Total 2283.756 0794.667 Balance 8076.608 8497.667 Weight 132.903 kg Intake: Intake, IV Titration 2333.839 2631.667 Amount 0.9% NaCl with KCl 20 Meq 100 /l 1,000 ml @ 100 mls/hr IV .BY DURATION [facility] Rx#: [id number] ACETAMINOPHEN IV (For NPO 400 ) 1,000 mg In Empty Bag 1 bag @ 400 mls/hr IVPB ONCE ONE Rx#:[id number] Mvi, Adult No.4 with Vit 1196.667 931.667 K 10 ml Thiamine 100 mg Folic Acid 1 mg Potassium Chloride 20 meq In Sodium Chloride 0.9% 1, 000 ml @ 100 mls/hr IV . BY DURATION [facility] Rx#: [id number] Oral 200 Other: # Voids 1 - Exam -GENERAL: The patient is alert and oriented x3, not in any acute distress. obese HEENT: Pupils are round and equally reacting to light. EOMI. No scleral icterus. No conjunctival pallor. Normocephalic, atraumatic. No pharyngeal erythema. No thyromegaly. CARDIOVASCULAR: S1 and S2 present. No murmurs, rubs, or gallops. PULMONARY: Chest is clear to auscultation, no wheezing or crackles. -ABDOMEN: Soft, nontender, nondistended, normoactive bowel sounds. No palpable organomegaly.small surgical wounds are clean and closed MUSCULOSKELETAL: No joint swelling or deformity. EXTREMITIES: No cyanosis, clubbing, or pedal edema. NEUROLOGICAL: Gross neurological examination did not reveal any focal deficits. SKIN: No rashes. no petechiae. - Labs CBC & Chem 7: 11/18/19 06:22 11/17/19 07:48 Labs: Abnormal Lab Results - Last 24 Hours (Table) 11/18/19 Range/Units 05:56 POC Glucose (mg/dL) 129 H (75-99) mg/dL Assessment and Plan Assessment: morbid obesity, status post laparoscopic sleeve gastrectomy History of seizure, on AED history of asthma, not an active issue Exact and depression, not an active issue Plan: this is a pleasant 24 years old female was admitted for elective sleeve gastrectomy for her obesity. continue with oral doses of Keppra and Lamictal. Pain management and DVT prophylaxis as per primary surgical team. She is currently on Lovenox 40 mg twice daily. Labs and medication were reviewed.. Continue same treatment. Continue with symptomatic treatment. Resume home medication. Monitor lytes and vitals. DVT and GI prophylaxis. Further recommendations of the clinical course of the patient physical therapy: Pending thank you for consulting us
[2019-11-18 11:36] LABS: Glucose,Whole Blood 101 mg/dL (75-99)
[2019-11-18 15:31] VITALS: RESP 16
[2019-11-18 16:52] LABS: Glucose,Whole Blood 83 mg/dL (75-99)
[2019-11-18 18:07] LABS: Glucose,Whole Blood 108 mg/dL (75-99)
[2019-11-18] MEDS ORDERED: levETIRAcetam 500 MG TAB PO SCH (21:00)
[2019-11-18] MEDS: KETOROLAC 30 MG/ML 1 ML VIAL IVP PRN (21:52)
[2019-11-19 00:04] LABS: Glucose,Whole Blood 104 mg/dL (75-99)
[2019-11-19] MEDS: ENOXAPARIN 40 MG/0.4 ML SYRINGE SQ SCH (02:38)
[2019-11-19 06:02] LABS: Glucose,Whole Blood 88 mg/dL (75-99)
[2019-11-19] MEDS: LACTATED RINGERS 1,000 ML IV SCH (06:56)
[2019-11-19] MEDS: ALBUTEROL NEBULIZED 2.5 MG/3 ML INHALATION SCH ×3 (08:17→16:18)
[2019-11-19] MEDS: lamoTRIgine 100 MG TAB PO SCH (08:40)
[2019-11-19] MEDS: KETOROLAC 30 MG/ML 1 ML VIAL IVP PRN (08:41)
[2019-11-19] MEDS: PANTOPRAZOLE 40 MG/10 ML VIAL IV SCH (08:41)
[2019-11-19] MEDS: 1: MVI, ADULT NO.4 WITH VIT K 10 ML, THIAMINE 100 MG, FOLIC ACID 1 MG, POTASSIUM CHLORID IV SCH ×6 (08:43)
[2019-11-19] MEDS ORDERED: levETIRAcetam 500 MG TAB PO SCH (09:00)
[2019-11-19] MEDS ORDERED: ENOXAPARIN 40 MG/0.4 ML SYRINGE SQ SCH (09:00)
--- NOTE | 2019-11-19 10:56 | P.PN ---
<Whit Marie - Last Filed: 11/19/19 10:45> Subjective Progress Note Date: 11/19/19 CHIEF COMPLAINT: morbid obesity HISTORY OF PRESENT ILLNESS: Patient is s/p sleeve gastrectomy. POD #3. Patient examined this morning at the bedside. She states her pain has improved. She has consumed a few bites of sherbet this morning. She also has an empty water bottle at the bedside that she states she started drinking last night at 6pm. PHYSICAL EXAM: VITAL SIGNS: Reviewed. GENERAL: Well-developed in no acute distress. HEENT: No sclera icterus. Extraocular movements grossly intact. Moist buccal mucosa. Head is atraumatic, normocephalic. ABDOMEN: Soft. Nondistended. Surgical sites clean dry and intact. NEUROLOGIC: Alert and oriented. Cranial nerves II through XII grossly intact. ASSESSMENT: 1. Morbid obesity, status post sleeve gastrectomy PLAN: -Continue bariatric clear liquid diet -Incentive spirometry -Activity as tolerated -Pain control -Discharge home when patient is able to tolerate adequate amounts of fluids -Dr. Serrano will re-evaluate patients PO intake this afternoon for possible disch arge home Nurse practitioner note has been reviewed by physician. Signing provider agrees with the documented findings, assessment, and plan of care. Objective - Vital Signs Vital signs: Vital Signs Temp 99.0 F 11/19/19 07:12 Pulse 101 H 11/19/19 07:12 Resp 16 11/19/19 07:12 BP 114/72 11/19/19 07:12 Pulse Ox 97 11/19/19 07:12 Intake & Output 11/18/19 11/19/19 11/19/19 18:59 06:59 18:59 Intake Total 540 1000 Balance 540 1000 Weight 132.903 kg Intake: Intake, IV Titration 1000 Amount 0.9% NaCl with KCl 20 Meq 1000 /l 1,000 ml @ 100 mls/hr IV .BY DURATION [facility] Rx#: [id number] Oral 540 Other: # Voids 3 2 - Labs CBC & Chem 7: 11/18/19 06:22 11/17/19 07:48 Labs: Abnormal Lab Results - Last 24 Hours (Table) 11/18/19 11/18/19 11/19/19 Range/Units 11:34 18:06 00:02 POC Glucose (mg/dL) 101 H 108 H 104 H (75-99) mg/dL <MaggieTim - Last Filed: 11/19/19 17:08> Objective - Vital Signs Vital signs: Vital Signs Temp 98.8 F 11/19/19 14:11 Pulse 98 11/19/19 14:11 Resp 16 11/19/19 14:11 BP 127/85 11/19/19 14:11 Pulse Ox 99 11/19/19 14:11 Intake & Output 11/18/19 11/19/19 11/19/19 18:59 06:59 18:59 Intake Total 540 1000 800 Balance 540 1000 800 Weight 132.903 kg Intake: IV 800 0.9% NaCl with KCl 20 Meq 800 /l 1,000 ml @ 100 mls/hr IV .BY DURATION [facility] Rx#: [id number] Intake, IV Titration 1000 Amount 0.9% NaCl with KCl 20 Meq 1000 /l 1,000 ml @ 100 mls/hr IV .BY DURATION [facility] Rx#: [id number] Oral 540 Other: # Voids 3 2 - Labs CBC & Chem 7: 11/18/19 06:22 11/17/19 07:48 Labs: Abnormal Lab Results - Last 24 Hours (Table) 11/18/19 11/19/19 11/19/19 Range/Units 18:06 00:02 17:02 POC Glucose (mg/dL) 108 H 104 H 74 L (75-99) mg/dL Assessment and Plan (1) Morbid obesity with BMI of 50.0-59.9, adult Current Visit: No Status: Acute Code(s): E66.01 - MORBID (SEVERE) OBESITY DUE TO EXCESS CALORIES; Z68.43 - BODY MASS INDEX (BMI) 50.0-59.9, ADULT SNOMED Code(s): 840796206
[2019-11-19 11:50] LABS: Glucose,Whole Blood 89 mg/dL (75-99)
--- NOTE | 2019-11-19 12:16 | P.PN ---
Subjective this is a pleasant 24 years old female with past medical history of asthma, seizure disorder, anxiety and depression. She is a patient of Dr. thompson.she was admitted because of her morbid obesity for elective laparoscopic sleeve gastrectomy.today is postoperative day #1. patient was seen walking the hallway with physical therapy with no problem. She has also vomiting with no blood. No bowel movement or passing gas. She has expected some pain at the surgical site. No chest pain or dyspnea. Vitals looks stable. Patient states that she has history of seizure and she follow up with Dr. 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 also she has history of depression, she feels chronically depressed but she denies suicidal or homicidal ideation. She follow up with us psychologist as an outpatient. She denies smoking, alcohol or illicit drugs. I asked the patient to do a test she declined states it was done b efore surgery 11/18/2019 Patient awake and oriented. Pain is tolerated the surgical site. She started on liquid diet, so Keppra was switched from IV dose to oral dose. vitals and labs are stable, sugar control. she is on Lovenox 40 mg twice a day 11/19/2019 Patient is doing better today, she is fully awake and oriented, she'll comfortable not in distress or pain. She is tolerating her liquid diet and looks like she is going to be discharged on liquid diet for now as per surgery team recommendation. No seizure activity no other complaint. Vitals and labs reviewed and looks stable Patient is expected to be discharged home so I surgery 60 Objective - Vital Signs Vital signs: Vital Signs Temp 99.0 F 11/19/19 07:12 Pulse 101 H 11/19/19 07:12 Resp 16 11/19/19 07:12 BP 114/72 11/19/19 07:12 Pulse Ox 97 11/19/19 07:12 Intake & Output 11/18/19 11/19/19 11/19/19 18:59 06:59 18:59 Intake Total 540 1000 800 Balance 540 1000 800 Weight 132.903 kg Intake: IV 800 0.9% NaCl with KCl 20 Meq 800 /l 1,000 ml @ 100 mls/hr IV .BY DURATION ADAM Rx#: [id number] Intake, IV Titration 1000 Amount 0.9% NaCl with KCl 20 Meq 1000 /l 1,000 ml @ 100 mls/hr IV .BY DURATION ADAM Rx#: [id number] Oral 540 Other: # Voids 3 2 - Exam -GENERAL: The patient is alert and oriented x3, not in any acute distress. obese HEENT: Pupils are round and equally reacting to light. EOMI. No scleral icterus. No conjunctival pallor. Normocephalic, atraumatic. No pharyngeal erythema. No thyromegaly. CARDIOVASCULAR: S1 and S2 present. No murmurs, rubs, or gallops. PULMONARY: Chest is clear to auscultation, no wheezing or crackles. -ABDOMEN: Soft, nontender, nondistended, normoactive bowel sounds. No palpable organomegaly.small surgical wounds are clean and closed MUSCULOSKELETAL: No joint swelling or deformity. EXTREMITIES: No cyanosis, clubbing, or pedal edema. NEUROLOGICAL: Gross neurological examination did not reveal any focal deficits. SKIN: No rashes. no petechiae. - Labs CBC & Chem 7: 11/18/19 06:22 11/17/19 07:48 Labs: Abnormal Lab Results - Last 24 Hours (Table) 11/18/19 11/19/19 Range/Units 18:06 00:02 POC Glucose (mg/dL) 108 H 104 H (75-99) mg/dL Assessment and Plan Assessment: morbid obesity, status post laparoscopic sleeve gastrectomy History of seizure, on AED history of asthma, not an active issue Exact and depression, not an active issue Plan: this is a pleasant 24 years old female was admitted for elective sleeve gastrectomy for her obesity. continue with oral doses of Keppra and Lamictal. Pain management and DVT prophylaxis as per primary surgical team. She is currently on Lovenox 40 mg twice daily. Labs and medication were reviewed.. Continue same treatment. Continue with symptomatic treatment. Resume home medication. Monitor lytes and vitals. DVT and GI prophylaxis. Further recommendations of the clinical course of the patient physical therapy: Pending thank you for consulting us
[2019-11-19 15:16] VITALS: BP 127/85; PULSE 98; TEMP 98.8
[2019-11-19 17:04] LABS: Glucose,Whole Blood 74 mg/dL (75-99)
--- NOTE | 2019-11-19 17:09 | P.DS ---
Providers Date of admission: 11/16/19 10:41 Expected date of discharge: 11/19/19 Attending physician: Tim Serrano Consults: 11/16/19 16:42 Consult Physician Routine Consulting Provider: Baljinder Vincent Consult Reason/Comments: Medical management Do you want consulting provider notified?: Yes Primary care physician: Sima Stanton - Discharge Diagnosis(es) (1) Morbid obesity with BMI of 50.0-59.9, adult Patient underwent elective sleeve gastrectomy on Saturday. Postoperative upper GI showed no evidence of leak or obstruction. Patient was having some upper abdom inal discomfort that has the most part resolved. She only had 1 dose of Toradol today. She is tolerating better liquid intake. She has had about 30-35 ounces so far today. She would like to go home. Recent CBC normal. We'll discharge. Follow-up Saturday. Current Visit: No Status: Acute Plan - Discharge Summary Discharge Rx Participant: Yes New Discharge Prescriptions: New Bisacodyl [Dulcolax] 5 mg PO DAILY PRN #10 tablet. PRN Reason: Constipation Simethicone 40 mg/0.6 ml Drops [Mylicon Drops] 40 mg PO PCHS PRN #30 ml PRN Reason: Gas Omeprazole [PriLOSEC] 40 mg PO DAILY #30 capsule. Ondansetron Odt [Zofran Odt] 4 mg PO Q8HR PRN #9 tab PRN Reason: Nausea oxyCODONE HCL/ACETAMINOPHEN [oxyCODONE HCL/ACETAMINOPHEN 5-325] 1 tab PO Q6H 3 Days #12 tab No Action levETIRAcetam 500 mg PO Q12H Citalopram Hydrobromide [Citalopram HBr] 20 mg PO DAILY metFORMIN HCL 500 mg PO BID #60 tablet lamoTRIgine [LaMICtal] 175 mg PO BID Ergocalciferol [Vitamin D2 (DRISDOL)] 50,000 unit PO WEEKLY Folic Acid 1 mg PO BID Discharge Medication List Citalopram Hydrobromide [Citalopram HBr] 20 mg PO DAILY 07/15/18 [History] levETIRAcetam 500 mg PO Q12H 07/15/18 [History] metFORMIN HCL 500 mg PO BID #60 tablet 09/04/18 [Rx] Ergocalciferol [Vitamin D2 (DRISDOL)] 50,000 unit PO WEEKLY 01/27/19 [History] lamoTRIgine [LaMICtal] 175 mg PO BID 01/27/19 [History] Folic Acid 1 mg PO BID 05/12/19 [History] Bisacodyl [Dulcolax] 5 mg PO DAILY PRN #10 tablet. 11/19/19 [Rx] Omeprazole [PriLOSEC] 40 mg PO DAILY #30 capsule. 11/19/19 [Rx] Ondansetron Odt [Zofran Odt] 4 mg PO Q8HR PRN #9 tab 11/19/19 [Rx] Simethicone 40 mg/0.6 ml Drops [Mylicon Drops] 40 mg PO PCHS PRN #30 ml 11/19/19 [Rx] oxyCODONE HCL/ACETAMINOPHEN [oxyCODONE HCL/ACETAMINOPHEN 5-325] 1 tab PO Q6H 3 Days #12 tab 11/19/19 [Rx] Follow up Appointment(s)/Referral(s): Sima Stanton MD [Primary Care Provider] - 1 Week [place], [place] [NON-STAFF] - 1 Week Patient Instructions/Handouts: Nutrition after Bariatric Surgery (DC), Laparoscopic Sleeve Gastrectomy (DC) Activity/Diet/Wound Care/Special Instructions: No driving while taking pain medications No lifting over 10 pounds You may shower. No soaking or tub baths Very light activity until you are reevaluated at your follow up appointment with your surgeon
== END 2019-11-19 18:08 | disposition home or self-care (01) | DRG 621 ==
LOC: 2ORMAIN 10:41 → 4SSUR 16:57
PROVIDERS: ADMIT Surgery; ATTEND Surgery
PROC: 0DB64Z3 Excision of Stomach, Percutaneous Endoscopic Approach, Vertical (ICD-10-PCS; principal; 2019-11-16 12:45)
DX: E66.01 Morbid (severe) obesity due to excess calories (principal); G40.909 Epilepsy, unspecified, not intractable, without status epilepticus; G89.29 Other chronic pain; E28.2 Polycystic ovarian syndrome; F32.9 Major depressive disorder, single episode, unspecified; F41.9 Anxiety disorder, unspecified; M54.30 Sciatica, unspecified side; M54.9 Dorsalgia, unspecified; R03.0 Elevated blood-pressure reading, without diagnosis of hypertension; R11.2 Nausea with vomiting, unspecified; Z68.43 Body mass index [BMI] 50.0-59.9, adult; Z79.84 Long term (current) use of oral hypoglycemic drugs; Z79.899 Other long term (current) drug therapy
CPT/HCPCS: 74240; 80051; 81025; 82310; 82565; 83735; 84100; 84520; 85025; 88307; 94640; 94760; 94762

== ENCOUNTER → 2019-11-20 | Outpatient (CLI) | payer OTHER ==
--- NOTE | 2019-11-20 14:42 | CT ---
EXAMINATION TYPE: CT abdomen pelvis w con DATE OF EXAM: 11/20/2019 COMPARISON: 11/20/2019 HISTORY: Generalized abdominal pain post gastric sleeve. CT DLP: 2952.8 mGycm CONTRAST: CT scan of the abdomen and pelvis is performed with Oral Contrast and with IV Contrast, patient injec felipe with 100ml mL of Isovue 300. FINDINGS: LUNG BASES-: No visible nodule. No infiltrate. LIVER/GB: No calcified gallstones. No space occupying hepatic lesion. Biliary tree is of normal ca liber. Small amount of ascites noted. PANCREAS: No inflammation. No distinct mass. SPLEEN: No splenic enlargement. No lesion seen. ADRENALS: No nodule. No thickening. KIDNEYS/BLADDER: No hydronephrosis. No nephrolithiasis. No distinct renal mass. Urinary bladder g rossly unremarkable. BOWEL: There is an abnormal collection noted adjacent to the recently performed gastric sleeve measur ing approximately 6.4 x 9.7 x 9.0 cm. Hounsfield unit measurement is approximately 7 cm and this coul d reflect the staple line hematoma. No obvious leak appreciated. GENITAL ORGANS: No gross abnormality. LYMPH NODES: No greater than 1cm abdominal or pelvic lymph nodes are appreciated. AORTA: No significant abnormality. OSSEOUS STRUCTURES: No significant abnormality is seen. OTHER: Small amount of free fluid is seen within the right parapelvic gutter, adjacent to the liver a s well as within the pelvis. IMPRESSION: 1. Probable staple line hematoma as discussed above. Leak is felt to be less likely given lack of con trast within this collection. Correlate clinically. Small amount of free fluid as noted.
== END | disposition home or self-care (01) ==
LOC: RADCTMAIN 13:30
PROVIDERS: ATTEND Surgery
DX: R10.84 Generalized abdominal pain (principal)
CPT/HCPCS: 74177; Q9967

== ENCOUNTER → 2019-11-20 | Outpatient (CLI) | payer OTHER ==
[2019-11-20 11:09] VITALS: RESP 18
[2019-11-20] MEDS: SODIUM CHLORIDE 0.9% 1,000 ML IV SCH ×2 (11:25→12:08)
[2019-11-20 11:39] LABS: African American GFR (CKD) >90 (>60 ml/min/1.73 sqM); Anion Gap 7 mmol/L; Blood Urea Nitrogen 7 mg/dL (7-17); Calcium 8.5 mg/dL (8.4-10.2); Carbon Dioxide 26 mmol/L (22-30); Chloride 104 mmol/L (98-107); Glucose 91 mg/dL (74-99); Non-African American GFR(CKD) >90 (>60 ml/min/1.73 sqM); Potassium 3.8 mmol/L (3.5-5.1); Sodium 137 mmol/L (137-145)
[2019-11-20 11:40] VITALS: BP 128/86; PULSE 101; TEMP 98.1; BMI 51.9
[2019-11-20 11:41] LABS: Basophils % (A) 0 %; Eosinophils # (A) 0.1 k/uL (0-0.7); Eosinophils % (A) 2 %; Lymphocytes # (A) 1.1 k/uL (1.0-4.8); Lymphocytes % (A) 22 %; MCH 29.1 pg (25.0-35.0); MCHC 34.1 g/dL (31.0-37.0); MCV 85.4 fL (80.0-100.0); Mean Platelet Volume 8.1; Monocytes # (A) 0.3 k/uL (0-1.0); Monocytes % (A) 6 %; Neutrophils # (A) 3.5 k/uL (1.3-7.7); Neutrophils % (A) 68 %; Platelet Count 205 k/uL (150-450); RDW 14.1 % (11.5-15.5); WBC 5.1 k/uL (3.8-10.6)
[2019-11-20 11:51] LABS: HGB 9.9 gm/dL (11.4-16.0)
== END | disposition home or self-care (01) ==
LOC: BARWHC3 10:40
PROVIDERS: ATTEND Surgery
DX: Z48.815 Encounter for surgical aftercare following surgery on the digestive system (principal); R10.9 Unspecified abdominal pain; Z98.84 Bariatric surgery status; Z98.890 Other specified postprocedural states; E86.0 Dehydration
CPT/HCPCS: 80048; 85025; 96360; 96361; 36415; G0463; 99211

== ENCOUNTER → 2019-11-24 | Outpatient (CLI) | payer OTHER ==
[2019-11-24 12:34] VITALS: BP 133/83; PULSE 103; RESP 16; TEMP 98; BMI 49.9
--- NOTE | 2019-11-24 15:43 | P.BASOAP ---
Subjective Progress Note Date: 11/24/19 Principal diagnosis: Morbid obesity. Patient returns today for reevaluation. He has been doing better with her liquid intake. Had some pain on Saturday after a protein shake. Some nausea on Saturday. 40 ounces to 50 ounces of liquids last 2-3 days per day. Says her pain is down to 2 out of 10. Heart rate 103. Patient's postoperative CAT scan showed small to medium sized perigastric hematoma. Denies dysphagia. Overall thinks she is doing better. Objective - Vital Signs Vital signs: Vital Signs Temp 98 F 11/24/19 12:32 Pulse 103 H 11/24/19 12:32 Resp 16 11/24/19 12:32 BP 133/83 11/24/19 12:32 Pulse Ox Intake & Output 11/23/19 11/24/19 11/24/19 18:59 06:59 18:59 Weight 127.913 kg - Exam Abdomen: Soft, nondistended, mild tenderness, incision clean and dry Assessment/Plan (1) Morbid obesity Narrative/Plan: Patient doing better at this time. Continue encouraging adequate liquid intake. Increase protein intake as well. Gradually increase activity. Follow-up 2-3 weeks. Plan: Date: 11/24/19 Initial Weight: 136.333 kg Initial BMI: 53.2 Current Weight: 127.913 kg Current BMI: 49.9 Type of Surgery: Total Volume in Band: Previous Volume: Volume Removed: Volume Added: Band Size:
== END | disposition home or self-care (01) ==
LOC: BARWHC3 12:23
PROVIDERS: ATTEND Surgery
DX: E66.01 Morbid (severe) obesity due to excess calories (principal); Z68.42 Body mass index [BMI] 45.0-49.9, adult
CPT/HCPCS: 97803; G0463; 99211

== ENCOUNTER 2019-12-14 14:41 | Emergency (ER) | payer OTHER ==
[2019-12-14 14:47] VITALS: RESP 18
[2019-12-14] MEDS ORDERED: LORazepam 1 MG TAB PO STA (15:03)
--- NOTE | 2019-12-14 15:04 | ED ---
Anxiety HPI - General Chief Complaint: Anxiety Stated Complaint: Anxiety Time Seen by Provider: 12/14/19 14:42 Source: patient, EMS, RN notes reviewed, old records reviewed Mode of arrival: EMS Limitations: no limitations - History of Present Illness Initial Comments: This is a 24-year-old female DF for evaluation of acute distress situation. Patient having brief reaction sadness secondary to fight with fiance. Patient also exposed she is currently she has history of some depression denies she does see a counselor and recent gastric sleeve. Patient denying any issues of nausea vomiting diarrhea or abdominal pain. Patient symptoms are very related to motions, crying recent fight with her boyfriend she is not afraid of her boyfriend and currently herself is not homicidal or suicidal MD Complaint: anxiety -: hour(s) Symptoms: dyspnea, palpitations, extremity numbness/tingling, perioral numbness/tingling Place: home Previous History of Same: No Severity: moderate Quality: improving Provoking factors: emotional stress Improves With: nothing Worsens With: nothing - Related Data Home Medications: Home Medications Medication Instructions Recorded Confirmed Citalopram Hydrobromide 20 mg PO DAILY 07/15/18 11/16/19 [Citalopram HBr] levETIRAcetam 500 mg PO Q12H 07/15/18 11/16/19 Ergocalciferol [Vitamin D2 50,000 unit PO WEEKLY 01/27/19 11/16/19 (DRISDARLETTE)] lamoTRIgine [LaMICtal] 175 mg PO BID 01/27/19 11/16/19 Folic Acid 1 mg PO BID 05/12/19 11/16/19 Previous Rx's Medication Instructions Recorded metFORMIN HCL 500 mg PO BID #60 tablet 09/04/18 Bisacodyl [Dulcolax] 5 mg PO DAILY PRN #10 tablet. 11/19/19 Omeprazole [PriLOSEC] 40 mg PO DAILY #30 capsule. 11/19/19 Ondansetron Odt [Zofran Odt] 4 mg PO Q8HR PRN #9 tab 11/19/19 Simethicone 40 mg/0.6 ml Drops 40 mg PO PCHS PRN #30 ml 11/19/19 [Mylicon Drops] oxyCODONE HCL/ACETAMINOPHEN 1 tab PO Q6H 3 Days #12 tab 11/19/19 [oxyCODONE HCL/ACETAMINOPHEN 5-325] Allergies/Adverse Reactions: Allergies Allergy/AdvReac Type Severity Reaction Status Date / Time No Known Allergies Allergy Verified 12/14/19 14:47 Review of Systems ROS Statement: Those systems with pertinent positive or pertinent negative responses have been documented in the HPI. ROS Other: All systems not noted in ROS Statement are negative. Past Medical History Past Medical History: Asthma, Seizure Disorder Additional Past Medical History / Comment(s): PCOS, sciatica. LAST SEIZURE 2012 History of Any Multi-Drug Resistant Organisms: None Reported Past Surgical History: No Surgical Hx Reported, Bariatric Surgery Additional Past Surgical History / Comment(s): sleeve gastrectomy 11-16-19 Past Anesthesia/Blood Transfusion Reactions: No Reported Reaction Additional Past Anesthesia/Blood Transfusion Reaction / Comment(s): NO PRIOR ANESTHESIA HX Past Psychological History: Anxiety, Depression Smoking Status: Former smoker Past Alcohol Use History: Rare Past Drug Use History: None Reported - Past Family History Mother Family Medical History: No Reported History General Exam Limitations: no limitations General appearance: alert, in no apparent distress Head exam: Present: atraumatic, normocephalic, normal inspection Eye exam: Present: normal appearance, PERRL, EOMI. Absent: scleral icterus, conjunctival injection, periorbital swelling ENT exam: Present: normal exam, mucous membranes moist Neck exam: Present: normal inspection. Absent: tenderness, meningismus, lymphadenopathy Respiratory exam: Present: normal lung sounds bilaterally. Absent: respiratory distress, wheezes, rales, rhonchi, stridor Cardiovascular Exam: Present: regular rate, normal rhythm, normal heart sounds. Absent: systolic murmur, diastolic murmur, rubs, gallop, clicks GI/Abdominal exam: Present: soft, normal bowel sounds. Absent: distended, tenderness, guarding, rebound, rigid Extremities exam: Present: normal inspection, full ROM, normal capillary refill. Absent: tenderness, pedal edema, joint swelling, calf tenderness Back exam: Present: normal inspection Neurological exam: Present: alert, oriented X3, CN II-XII intact Psychiatric exam: Present: normal affect, normal mood Skin exam: Present: warm, dry, intact, normal color. Absent: rash Course Vital Signs 12/14/19 14:42 Temperature 97.3 F L Pulse Rate 92 Respiratory 18 Rate Blood Pressure 121/109 O2 Sat by Pulse 98 Oximetry - Reevaluation(s) Reevaluation #1: 12/14/19 15:33 Medical records reviewed Reevaluation #2: 12/14/19 15:33 Medical clear for psychiatric evaluation Medical Decision Making - Medical Decision Making [age] female seen and evaluated psychiatry, patient was medically clear stable for discharge home not homicidal or suicidal, feels safe going back home Disposition Clinical Impression: Panic attack, Acute anxiety Disposition: HOME SELF-CARE Condition: Good Instructions (If sedation given, give patient instructions): Generalized Anxiety Disorder (ED) Is patient prescribed a controlled substance at d/c from ED?: No Referrals: Sima Stanton MD [Primary Care Provider] - 1-2 days
[2019-12-14 17:15] VITALS: BP 132/85; PULSE 74; TEMP 98.3
== END 2019-12-14 18:03 | disposition home or self-care (01) ==
LOC: EC 14:41
DX: F41.0 Panic disorder [episodic paroxysmal anxiety] (principal); F32.9 Major depressive disorder, single episode, unspecified; G40.909 Epilepsy, unspecified, not intractable, without status epilepticus; Z79.899 Other long term (current) drug therapy; Z87.891 Personal history of nicotine dependence
CPT/HCPCS: 82075; 99284

== ENCOUNTER → 2019-12-15 | Outpatient (CLI) | payer OTHER ==
[2019-12-15 16:14] VITALS: BMI 48.1
--- NOTE | 2019-12-15 16:53 | P.BASOAP ---
Subjective Progress Note Date: 12/15/19 Principal diagnosis: Morbid obesity Patient returns for reevaluation. Unfortunately did go to the ER yesterday because of a panic attack. Patient has lost 11 pounds since last visit. Excellent oral intake. No pain. Still struggling somewhat with her protein intake. Thinks she is getting about 30 g of protein per day. She has had emesis twice to eggs. She is due for one month labs. Heart rate normal today. Previously was elevated. Objective - Vital Signs Vital signs: Intake & Output 12/14/19 12/15/19 12/15/19 18:59 06:59 18:59 Weight 123.15 kg - Exam Abdomen: Soft, nontender, nondistended Assessment/Plan (1) Morbid obesity Narrative/Plan: Patient doing well at this time. Continue increasing protein intake. Gradually advance diet. May resume normal activities. Follow up one month. Check one month labs. Plan: Date: Initial Weight: 136.333 kg Initial BMI: Current Weight: 123.15 kg Current BMI: 48.1 Type of Surgery: Total Volume in Band: Previous Volume: Volume Removed: Volume Added: Band Size:
[2019-12-16 14:29] VITALS: BP 110/77; PULSE 76; TEMP 98.9
== END | disposition home or self-care (01) ==
LOC: BARWHC3 13:38
PROVIDERS: ATTEND Surgery
DX: E66.01 Morbid (severe) obesity due to excess calories (principal); Z68.42 Body mass index [BMI] 45.0-49.9, adult
CPT/HCPCS: 97803; G0463; 99211

== ENCOUNTER → 2019-12-23 | Outpatient (CLI) | payer OTHER ==
[2019-12-23 15:01] LABS: HCT 36.9 % (34.0-46.0); HGB 11.9 gm/dL (11.4-16.0); Hypochromasia Moderate; MCH 28.1 pg (25.0-35.0); MCHC 32.3 g/dL (31.0-37.0); MCV 87.1 fL (80.0-100.0); Platelet Count 207 k/uL (150-450); RBC 4.23 m/uL (3.80-5.40); WBC 3.2 k/uL (3.8-10.6)
[2019-12-23 19:26] LABS: African American GFR (CKD) 139.6 (60.0-200.0); Albumin 3.9 g/dL (3.80-4.90); Albumin/Globulin Ratio 1.86 (1.60-3.17); Anion Gap 7.4 mmol/L (4.00-12.00); BUN/Creat Ratio 11.43 Ratio (12.00-20.00); Calcium 9.2 mg/dL (8.7-10.3); Carbon Dioxide 27.6 mmol/L (21.6-31.8); Globulin 2.1 g/dL (1.6-3.3); Non-African American GFR(CKD) 120.4 (60.0-200.0); Potassium 3.6 mmol/L (3.5-5.5); Total Bilirubin 0.6 mg/dL (0.2-1.2)
== END | disposition home or self-care (01) ==
LOC: LABWHC1 14:07
PROVIDERS: ATTEND Surgery
DX: K90.89 Other intestinal malabsorption (principal); E55.9 Vitamin D deficiency, unspecified
CPT/HCPCS: 36415; 80053; 82306; 82607; 82746; 83540; 84425; 85027

== ENCOUNTER → 2020-02-02 | Outpatient (CLI) | payer OTHER ==
[2020-02-02 13:17] VITALS: BP 114/80; PULSE 75; RESP 16; TEMP 98.5; BMI 43.7
--- NOTE | 2020-02-02 14:12 | P.BASOAP ---
Subjective Progress Note Date: 02/02/20 Principal diagnosis: Morbid obesity Patient doing well today. She has lost 25 pounds since her last visit. Last visit 12/14. She did have an emesis to eggs recently. Denies heartburn. No longer taking antiacids. No organized exercise routine. Better protein intake. She is taking her iron and vitamin supplementation. Objective - Vital Signs Vital signs: Vital Signs Temp 98.5 F 02/02/20 13:15 Pulse 75 02/02/20 13:15 Resp 16 02/02/20 13:15 BP 114/80 02/02/20 13:15 Pulse Ox Intake & Output 02/01/20 02/02/20 02/02/20 18:59 06:59 18:59 Weight 112.037 kg - Exam Abdomen: Soft, nontender, nondistended Assessment/Plan (1) Morbid obesity Narrative/Plan: Overall patient doing well. Excellent weight loss. No heartburn. Continue monitoring protein intake. Continue iron and vitamin D supplementation. Follow-up 6 weeks. We'll check 3 months labs at that time. Plan: Date: 02/02/20 Initial Weight: 136.333 kg Initial BMI: 53.2 Current Weight: 112.037 kg Current BMI: 43.7 Type of Surgery: Total Volume in Band: Previous Volume: Volume Removed: Volume Added: Band Size:
== END | disposition home or self-care (01) ==
LOC: BARWHC3 12:59
PROVIDERS: ATTEND Surgery
DX: E66.01 Morbid (severe) obesity due to excess calories (principal); Z68.43 Body mass index [BMI] 50.0-59.9, adult
CPT/HCPCS: 97803; G0463; 99211

== ENCOUNTER → 2020-04-05 | Outpatient (CLI) | payer OTHER ==
[2020-04-05 12:51] VITALS: BP 145/94; PULSE 57; TEMP 98.2; BMI 41.6
--- NOTE | 2020-04-05 14:08 | P.BASOAP ---
Subjective Progress Note Date: 04/05/20 Principal diagnosis: Morbid obesity Patient returns for recheck. Last seen 02/01. Underwent sleeve gastrectomy 11/15. She is due for 3 month labs. Since last visit she has decreased her activity level. She is having increased stress at home secondary to home learning. Patient stopped her multivitamin iron and vitamin D. Thinks she is eating too much. She is drinking with her meals at times. She has lost 12 pounds since last visit. Objective - Vital Signs Vital signs: Vital Signs Temp 98.2 F 04/05/20 12:48 Pulse 57 L 04/05/20 12:48 Resp BP 145/94 04/05/20 12:48 Pulse Ox Intake & Output 04/04/20 04/05/20 04/05/20 18:59 06:59 18:59 Weight 106.594 kg - Exam Abdomen: Soft, nontender, nondistended Assessment/Plan (1) Morbid obesity Narrative/Plan: Patient having some issues currently. She will begin/resume her multivitamins. We will check her 3 month labs at this time. Patient will try to avoid drinking during her mealtime. She will follow-up in 6-8 weeks. Plan: Date: 04/05/20 Initial Weight: 136.333 kg Initial BMI: 53.2 Current Weight: 106.594 kg Current BMI: 41.6 Type of Surgery: Total Volume in Band: Previous Volume: Volume Removed: Volume Added: Band Size:
== END | disposition home or self-care (01) ==
LOC: BARWHC3 12:01
PROVIDERS: ATTEND Surgery
DX: Z48.815 Encounter for surgical aftercare following surgery on the digestive system (principal); E66.01 Morbid (severe) obesity due to excess calories; Z68.43 Body mass index [BMI] 50.0-59.9, adult; Z98.84 Bariatric surgery status
CPT/HCPCS: 99211

== ENCOUNTER → 2020-05-24 | Outpatient (CLI) | payer OTHER ==
[2020-05-24 14:17] VITALS: BP 125/80; PULSE 80; RESP 16; TEMP 98.2; BMI 39.6
[2020-05-24 14:31] LABS: HCT 41.9 % (34.0-46.0); HGB 13.6 gm/dL (11.4-16.0); MCH 28.4 pg (25.0-35.0); MCHC 32.4 g/dL (31.0-37.0); MCV 87.6 fL (80.0-100.0); Mean Platelet Volume 7.9; Platelet Count 222 k/uL (150-450); RBC 4.78 m/uL (3.80-5.40); RDW 13.9 % (11.5-15.5)
--- NOTE | 2020-05-24 16:07 | P.BASOAP ---
Subjective Progress Note Date: 05/24/20 Principal diagnosis: Morbid obesity Patient returns today for evaluation. Last seen in April. Stress is somewhat improved. She has lost 11 pounds since her last visit. Still not exercising much. She is not drinking with her meals as much. She did share a picture of one of her meals. She was concerned that she was eating too much. The amount seen on the [place] does appear slightly more than typical for a post sleeve gastrectomy patient. States she had her lab work done this morning. No longer taking antiacids. No heartburn. Objective - Vital Signs Vital signs: Vital Signs Temp 98.2 F 05/24/20 14:14 Pulse 80 05/24/20 14:14 Resp 16 05/24/20 14:14 BP 125/80 05/24/20 14:14 Pulse Ox Intake & Output 05/23/20 05/24/20 05/24/20 18:59 06:59 18:59 Weight 101.378 kg - Exam Abdomen: Soft, nontender, nondistended - Labs CBC & Chem 7: 05/24/20 13:08 Assessment/Plan (1) Morbid obesity Narrative/Plan: Patient improving overall. Good weight loss. We'll start increasing her exercise regimen. We'll continue to try to minimize drinking during mealtime. Monitor oral intake. Follow-up 4-6 weeks. Review labs done this morning. Plan: Date: 05/24/20 Initial Weight: 136.333 kg Initial BMI: 53.2 Current Weight: 101.378 kg Current BMI: 39.6 Type of Surgery: Total Volume in Band: Previous Volume: Volume Removed: Volume Added: Band Size:
[2020-05-24 22:18] LABS: African American GFR (CKD) 146.8 (60.0-200.0); Albumin 3.8 g/dL (3.80-4.90); Albumin/Globulin Ratio 2.53 (1.60-3.17); Anion Gap 11.7 mmol/L (4.00-12.00); BUN/Creat Ratio 13.33 Ratio (12.00-20.00); Calcium 8.7 mg/dL (8.7-10.3); Carbon Dioxide 23.3 mmol/L (21.6-31.8); Globulin 1.5 g/dL (1.6-3.3); Non-African American GFR(CKD) 126.7 (60.0-200.0); Potassium 4.2 mmol/L (3.5-5.5); Total Bilirubin 0.3 mg/dL (0.3-1.2); Total Protein 5.3 g/dL (6.2-8.2)
[2020-05-24 22:28] LABS: Folate, Serum 15.2 ng/mL
== END | disposition home or self-care (01) ==
LOC: BARWHC3 13:01
PROVIDERS: ATTEND Surgery
DX: E66.01 Morbid (severe) obesity due to excess calories (principal); K90.89 Other intestinal malabsorption; E55.9 Vitamin D deficiency, unspecified; Z68.39 Body mass index [BMI] 39.0-39.9, adult
CPT/HCPCS: 84425; 80053; 82607; 82746; 83540; 85027; 82306; 97803; G0463; 99211

== ENCOUNTER → 2020-09-06 | Outpatient (CLI) | payer OTHER ==
[2020-09-06 11:14] VITALS: BP 114/73; PULSE 91; RESP 18; TEMP 98; BMI 37.7
--- NOTE | 2020-09-06 11:29 | P.BASOAP ---
Subjective Progress Note Date: 09/06/20 Principal diagnosis: Morbid obesity Patient returns for evaluation. She recently found out that she has 7-8 weeks . This is her first child. She was only nauseous on one occasion so far. Last seen in May. No reflux. Still not taking her omeprazole. She has rare epigastric discomfort if she over eats. This only last for a few minutes at a time. She has lost 10 pounds since her last visit. She has an upcoming appointment with OB, possibly high risk because of history of epilepsy. Objective - Vital Signs Vital signs: Vital Signs Temp 98 F 09/06/20 11:09 Pulse 91 09/06/20 11:09 Resp 18 09/06/20 11:09 BP 114/73 09/06/20 11:09 Pulse Ox Intake & Output 09/05/20 09/06/20 09/06/20 18:59 06:59 18:59 Weight 96.615 kg - Exam Abdomen: Soft, nontender, nondistended Assessment/Plan (1) Morbid obesity Narrative/Plan: Patient doing well at this time. Will meet with dietitian today. Await upcoming OB appointment. Encouraged to take vitamins daily. We'll check 6 month labs. Follow-up 8 weeks. Plan: Date: 09/06/20 Initial Weight: 136.333 kg Initial BMI: 53.2 Current Weight: 96.615 kg Current BMI: 37.7 Type of Surgery: Total Volume in Band: Previous Volume: Volume Removed: Volume Added: Band Size:
== END | disposition home or self-care (01) ==
LOC: BARWHC3 11:03
PROVIDERS: ATTEND Surgery
DX: E66.01 Morbid (severe) obesity due to excess calories (principal); Z68.37 Body mass index [BMI] 37.0-37.9, adult
CPT/HCPCS: 97803; G0463; 99211

== ENCOUNTER 2020-10-02 16:53 | Emergency (ER) | payer OTHER ==
[2020-10-02 17:41] VITALS: RESP 18; TEMP 98.1
[2020-10-02 19:02] LABS: Basophils % (A) 0 %; Eosinophils % (A) 0 %; HCT 38.2 % (34.0-46.0); HGB 13.3 gm/dL (11.4-16.0); Lymphocytes # (A) 1.8 k/uL (1.0-4.8); Lymphocytes % (A) 25 %; MCH 29.7 pg (25.0-35.0); MCHC 34.9 g/dL (31.0-37.0); MCV 85.2 fL (80.0-100.0); Mean Platelet Volume 7.9; Monocytes # (A) 0.4 k/uL (0-1.0); Monocytes % (A) 6 %; Neutrophils # (A) 4.9 k/uL (1.3-7.7); Neutrophils % (A) 68 %; Platelet Count 222 k/uL (150-450); RBC 4.48 m/uL (3.80-5.40); RDW 13.5 % (11.5-15.5); WBC 7.2 k/uL (3.8-10.6)
[2020-10-02 19:03] LABS: Appearance,Urine Clear (Clear); Bacteria,Urine Occasional /hpf; Bilirubin,Urine Negative (Negative); Blood,Urine Moderate (Negative); Calcium Oxalate Crystals,Urine Occasional /hpf; Color,Urine Light Yellow; Glucose,Urine (UA) Negative (Negative); Ketones,Urine Negative (Negative); Leukocyte Esterase,Urine Trace (Negative); Nitrite,Urine Negative (Negative); PH, Urine 6.5 (5.0-8.0); Protein,Urine Negative (Negative); RBC,Urine 1 /hpf (0-5); Specific Gravity,Urine 1.005 (1.001-1.035); Squamous Epithelial Cell,Urine 2 /hpf (0-4); Urobilinogen,Urine <2.0 mg/dL (<2.0); WBC,Urine 5 /hpf (0-5)
[2020-10-02 19:13] LABS: ALT 12 U/L (4-34); AST 22 U/L (14-36); African American GFR (CKD) >90 (>60 ml/min/1.73 sqM); Albumin 4.3 g/dL (3.5-5.0); Alkaline Phosphatase 44 U/L (38-126); Anion Gap 7 mmol/L; Blood Urea Nitrogen 8 mg/dL (7-17); Calcium 9.5 mg/dL (8.4-10.2); Carbon Dioxide 29 mmol/L (22-30); Chloride 102 mmol/L (98-107); Glucose 78 mg/dL (74-99); Non-African American GFR(CKD) >90 (>60 ml/min/1.73 sqM); Potassium 3.6 mmol/L (3.5-5.1); Sodium 138 mmol/L (137-145); Total Bilirubin 0.4 mg/dL (0.2-1.3); Total Protein 6.9 g/dL (6.3-8.2)
--- NOTE | 2020-10-02 19:57 | US ---
EXAMINATION TYPE: Transabdominal DATE OF EXAM: 10/02/2020 7:45 PM COMPARISON: NONE CLINICAL HISTORY: vaginal bleeding. Spotting x 1 day EXAM PERFORMED: Transabdominal (TA) EXAM MEASUREMENTS: GESTATIONAL AGE / DATING Physician Established: Not yet established Dates by LMP: (11 weeks/4 days) EDC: 04/19/2021 Dates by First Scan: No previous this is first scan Dates by Current Scan for: (10 weeks/6 days) EDC: 04/24/2021 MATERNAL ANATOMY Uterus: 10.8 x 6.3 x 8.8cm Right Ovary: 3.4 x 1.7 x 2.0cm Left Ovary: 3.2 x 2.2 x 1.7cm Post CDS / Adnexa: wnl Presence of free fluid: no Presence of corpus luteal cyst: not seen Presence of subchorionic bleed: no GESTATION / SURVEY CRL: 3.9cm (10 weeks/6 days) Yolk Sac (normal less than 6mm): not seen Heart Rate: 174 bpm Rhythm: Normal IUP: Viable IUP Date of LMP: 07/13/2020 Beta HcG (if available): Not available at time of exam IMPRESSION: The ultrasound gestational age is 10 weeks and 6 days. No complicating process seen.
--- NOTE | 2020-10-02 20:55 | ED ---
Female Urogenital HPI - General Chief complaint: Vaginal Bleeding Stated complaint: 11wks preg, bleeding Source: patient Mode of arrival: ambulatory Limitations: no limitations - History of Present Illness Initial comments: Patient is a 24-year-old female who presents to the emergency room in with reported vaginal bleeding. Patient is approximately 11 weeks and states that she began having a small amount of pink tinged blood this morning. It did begin after she had intercourse. Patient is . No current issues with this . Patient had her first ultrasound last week and showed an intrauterine . She is following with Dr. Jernigan. She does have a repeat visit this week for blood work. She only admits to mild suprapubic cramping. No fevers or chills. Denies any nausea or vomiting. No abnormal vaginal discharge. No concern for such transmitted infections. Denies dysuria, hematuria or double voiding. Denies diarrhea, constipation, melenic stools or hematochezia. No other alleviating, precipitating or modifying factors - Related Data Home Medications Medication Instructions Recorded Confirmed Citalopram Hydrobromide 20 mg PO DAILY 07/15/18 09/06/20 [Citalopram HBr] lamoTRIgine 200 mg PO BID 12/14/19 09/06/20 Folic Acid 1 mg PO DAILY 09/06/20 09/06/20 Pnv No.95/Ferrous Fum/Folic AC 1 each PO DAILY 09/06/20 09/06/20 [ Multivitamin Tablet] Allergies Allergy/AdvReac Type Severity Reaction Status Date / Time No Known Allergies Allergy Verified 10/02/20 17:40 Review of Systems ROS Statement: Those systems with pertinent positive or pertinent negative responses have been documented in the HPI. ROS Other: All systems not noted in ROS Statement are negative. Past Medical History Past Medical History: Asthma, Seizure Disorder Additional Past Medical History / Comment(s): PCOS, sciatica. 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 Absent: scleral icterus, conjunctival injection, periorbital swelling ENT exam: Present: normal exam, mucous membranes moist Neck exam: Present: normal inspection. Absent: tenderness, meningismus, lymphadenopathy Respiratory exam: Present: normal lung sounds bilaterally. Absent: respiratory distress, wheezes, rales, rhonchi, stridor Cardiovascular Exam: Present: regular rate, normal rhythm, normal heart sounds. Absent: systolic murmur, diastolic murmur, rubs, gallop, clicks GI/Abdominal exam: Present: soft, normal bowel sounds. Absent: distended, tenderness, guarding, rebound, rigid Extremities exam: Present: normal inspection, full ROM, normal capillary refill. Absent: tenderness, pedal edema, joint swelling, calf tenderness Back exam: Present: normal inspection Neurological exam: Present: alert, oriented X3, CN II-XII intact Psychiatric exam: Present: normal affect, normal mood Skin exam: Present: warm, dry, intact, normal color. Absent: rash Course Vital Signs 10/02/20 10/02/20 17:38 21:02 Temperature 98.1 F Pulse Rate 75 70 Respiratory 18 18 Rate Blood Pressure 146/88 116/72 O2 Sat by Pulse 98 98 Oximetry Medical Decision Making - Medical Decision Making Upon arrival patient is placed in room 26. There are history and physical exam was performed. IV is established. Laboratory studies were conducted in the patient has an ultrasound performed. Ultrasound demonstrates an intrauterin dictated at 10 weeks 6 days. Baby has a heart rate of 174. No complicating process. Results are discussed with the patient. I did offer a pelvic exam however the patient refused stating that her bleeding was extremely light. I d id recommend pelvic rest. Patient is to follow-up this week with her [facility]GER [facility]. I did instruct her that she needs to inform them of her bleeding. Return to the emergency department should she have any new or worsening symptoms. Patient agreed to this and she was discharged home in stable condition - Lab Data Result diagrams: 10/02/20 18:52 10/02/20 18:52 Lab Results 10/02/20 10/02/20 10/02/20 Range/Units 18:52 18:52 18:52 WBC 7.2 (3.8-10.6) k/uL RBC 4.48 (3.80-5.40) m/uL Hgb 13.3 (11.4-16.0) gm/dL Hct 38.2 (34.0-46.0) % MCV 85.2 (80.0-100.0) fL MCH 29.7 (25.0-35.0) pg MCHC 34.9 (31.0-37.0) g/dL RDW 13.5 (11.5-15.5) % Plt Count 222 (150-450) k/uL MPV 7.9 Neutrophils % 68 % Lymphocytes % 25 % Monocytes % 6 % Eosinophils % 0 % Basophils % 0 % Neutrophils # 4.9 (1.3-7.7) k/uL Lymphocytes # 1.8 (1.0-4.8) k/uL Monocytes # 0.4 (0-1.0) k/uL Eosinophils # 0.0 (0-0.7) k/uL Basophils # 0.0 (0-0.2) k/uL Sodium 138 (137-145) mmol/L Potassium 3.6 (3.5-5.1) mmol/L Chloride 102 (98-107) mmol/L Carbon Dioxide 29 (22-30) mmol/L Anion Gap 7 mmol/L BUN 8 (7-17) mg/dL Creatinine 0.44 L (0.52-1.04) mg/dL Est GFR (CKD-EPI)AfAm >90 (>60 ml/min/1.73 sqM) Est GFR (CKD-EPI)NonAf >90 (>60 ml/min/1.73 sqM) Glucose 78 (74-99) mg/dL Calcium 9.5 (8.4-10.2) mg/dL Total Bilirubin 0.4 (0.2-1.3) mg/dL AST 22 (14-36) U/L ALT 12 (4-34) U/L Alkaline Phosphatase 44 (38-126) U/L Total Protein 6.9 (6.3-8.2) g/dL Albumin 4.3 (3.5-5.0) g/dL HCG, Quant 30672.9 mIU/mL Urine Color Urine Appearance (Clear) Urine pH (5.0-8.0) Ur Specific [place] (1.001-1.035) Urine Protein (Negative) Urine Glucose (UA) (Negative) Urine Ketones (Negative) Urine Blood (Negative) Urine Nitrite (Negative) Urine Bilirubin (Negative) Urine Urobilinogen (<2.0) mg/dL Ur Leukocyte Esterase (Negative) Urine RBC (0-5) /hpf Urine WBC (0-5) /hpf Ur Squamous Epith Cells (0-4) /hpf Calcium Oxalate Crystal (None) /hpf Urine Bacteria (None) /hpf Blood Type O Positive Blood Type Recheck No Previous Record Bld Type Recheck Status [facility] ONLY 10/02/20 Range/Units 18:52 WBC (3.8-10.6) k/uL RBC (3.80-5.40) m/uL Hgb (11.4-16.0) gm/dL Hct (34.0-46.0) % MCV (80.0-100.0) fL MCH (25.0-35.0) pg MCHC (31.0-37.0) g/dL RDW (11.5-15.5) % Plt Count (150-450) k/uL MPV Neutrophils % % Lymphocytes % % Monocytes % % Eosinophils % % Basophils % % Neutrophils # (1.3-7.7) k/uL Lymphocytes # (1.0-4.8) k/uL Monocytes # (0-1.0) k/uL Eosinophils # (0-0.7) k/uL Basophils # (0-0.2) k/uL Sodium (137-145) mmol/L Potassium (3.5-5.1) mmol/L Chloride (98-107) mmol/L Carbon Dioxide (22-30) mmol/L Anion Gap mmol/L BUN (7-17) mg/dL Creatinine (0.52-1.04) mg/dL Est GFR (CKD-EPI)AfAm (>60 ml/min/1.73 sqM) Est GFR (CKD-EPI)NonAf (>60 ml/min/1.73 sqM) Glucose (74-99) mg/dL Calcium (8.4-10.2) mg/dL Total Bilirubin (0.2-1.3) mg/dL AST (14-36) U/L ALT (4-34) U/L Alkaline Phosphatase (38-126) U/L Total Protein (6.3-8.2) g/dL Albumin (3.5-5.0) g/dL HCG, Quant mIU/mL Urine Color Light Yellow Urine Appearance Clear (Clear) Urine pH 6.5 (5.0-8.0) Ur Specific [place] 1.005 (1.001-1.035) Urine Protein Negative (Negative) Urine Glucose (UA) Negative (Negative) Urine Ketones Negative (Negative) Urine Blood Moderate H (Negative) Urine Nitrite Negative (Negative) Urine Bilirubin Negative (Negative) Urine Urobilinogen <2.0 (<2.0) mg/dL Ur Leukocyte Esterase Trace H (Negative) Urine RBC 1 (0-5) /hpf Urine WBC 5 (0-5) /hpf Ur Squamous Epith Cells 2 (0-4) /hpf Calcium Oxalate Crystal Occasional H (None) /hpf Urine Bacteria Occasional H (None) /hpf Blood Type Blood Type Recheck Bld Type Recheck Status Disposition Clinical Impression: Threatened Disposition: HOME SELF-CARE Condition: Stable Instructions (If sedation given, give patient instructions): Threatened Miscarriage (ED) Additional Instructions: You had a normal ultrasound today with a heart rate of 174. You need to follow up with your OBGYN at your scheduled appointment. Please be on pelvic rest until you see them. Return to the ED for any new or worsening symptoms. Is patient prescribed a controlled substance at d/c from ED?: No Referrals: Sima Stanton MD [Primary Care Provider] - 1-2 days Nena Jernigan DO [Doctor of Osteopathic Medicine] - 1-2 days Time of Disposition: 20:54
[2020-10-02 21:03] VITALS: BP 116/72; PULSE 70
[2020-10-02 21:28] LABS: HCG,Quantitative Serum 90117.9 mIU/mL
== END 2020-10-02 21:03 | disposition home or self-care (01) ==
LOC: EC 16:53
DX: O20.0 Threatened abortion (principal); O99.511 Diseases of the respiratory system complicating pregnancy, first trimester; J45.909 Unspecified asthma, uncomplicated; O99.351 Diseases of the nervous system complicating pregnancy, first trimester; G40.909 Epilepsy, unspecified, not intractable, without status epilepticus; O99.341 Other mental disorders complicating pregnancy, first trimester; F32.9 Major depressive disorder, single episode, unspecified; Z3A.11 11 weeks gestation of pregnancy; Z87.891 Personal history of nicotine dependence
CPT/HCPCS: 36415; 76801; 80053; 81001; 84702; 85025; 86900; 86901; 99284

== ENCOUNTER 2020-10-06 16:22 | Emergency (ER) | payer OTHER ==
[2020-10-06 16:41] VITALS: BP 129/82; PULSE 80; RESP 18; TEMP 97.9
[2020-10-06 18:36] LABS: Basophils % (A) 0 %; Eosinophils # (A) 0.1 k/uL (0-0.7); Eosinophils % (A) 1 %; HCT 37.4 % (34.0-46.0); Lymphocytes # (A) 1.8 k/uL (1.0-4.8); Lymphocytes % (A) 25 %; MCH 29.7 pg (25.0-35.0); MCHC 34.9 g/dL (31.0-37.0); MCV 85.1 fL (80.0-100.0); Mean Platelet Volume 7.5; Monocytes # (A) 0.3 k/uL (0-1.0); Monocytes % (A) 5 %; Neutrophils % (A) 68 %; Platelet Count 221 k/uL (150-450); RBC 4.39 m/uL (3.80-5.40); RDW 13.5 % (11.5-15.5); WBC 7.3 k/uL (3.8-10.6)
[2020-10-06 18:41] LABS: Appearance,Urine Cloudy (Clear); Bacteria,Urine Rare /hpf; Bilirubin,Urine Negative (Negative); Blood,Urine Large (Negative); Color,Urine Yellow; Glucose,Urine (UA) Negative (Negative); Ketones,Urine Negative (Negative); Leukocyte Esterase,Urine Negative (Negative); Mucus,Urine Few /hpf; Nitrite,Urine Negative (Negative); PH, Urine 5.5 (5.0-8.0); Protein,Urine Trace (Negative); RBC,Urine >182 /hpf (0-5); Specific Gravity,Urine 1.018 (1.001-1.035); Squamous Epithelial Cell,Urine 4 /hpf (0-4); Urobilinogen,Urine <2.0 mg/dL (<2.0); WBC,Urine 23 /hpf (0-5)
--- NOTE | 2020-10-06 18:46 | US ---
EXAMINATION TYPE: Transabdominal DATE OF EXAM: 10/06/2020 6:23 PM COMPARISON: 10/02/2020 CLINICAL HISTORY: bleeding. Bleeding x 2.5 hours. Hx PCOS. . EXAM PERFORMED: Transabdominal (TA) EXAM MEASUREMENTS: GESTATIONAL AGE / DATING Physician Established: Not yet established. Dates by LMP: (12 weeks/1 day) EDC: 04/19/2021 Dates by First Scan: (11 weeks/3 days) EDC: 04/24/2021 Dates by Current Scan for: (11 weeks/2 days) EDC: 04/25/2021 MATERNAL ANATOMY Uterus: 10.9 x 8.5 x 7.1 cm. Right Ovary: 2.8 x 2.5 x 2.0 cm. Left Ovary: 3.6 x 1.8 x 2.2 cm. Post CDS / Adnexa: Appear to be wnl. Presence of free fluid: None seen. Presence of corpus luteal cyst: Not seen. Presence of subchorionic bleed: Possible. Hypoechoic, heterogeneous areas seen adjacent to the gestat ional sac- #1: 2.1 x 2.2 x 2.4 cm. #2: 2.5 x 2.8 x 1.4 cm. GESTATION / SURVEY CRL: 4.53 cm. (11 weeks/2 days) Yolk Sac (normal less than 6mm): Not visualized. Heart Rate: 170 bpm Rhythm: Normal IUP: Viable IUP Nuchal Translucency 10-14wks (normal less than 3mm): Not well seen. Limited due to patient body habitus. Date of LMP: 07/13/2020 Beta HcG (if available): Not available. IMPRESSION: Hypoechoic areas adjacent to the gestational sac could be subchorionic hemorrhages. These appear new compared to recent exam of October 02, 2020.
--- NOTE | 2020-10-06 18:55 | ED ---
Female Urogenital HPI - General Source: patient Mode of arrival: ambulatory Limitations: no limitations - History of Present Illness Last Menstrual Period: 07/13/20 <Lindy Bautista - Last Filed: 10/06/20 19:39> <Dyan Peralta - Last Filed: 10/07/20 23:07> - General Chief complaint: Vaginal Bleeding Stated complaint: 12 wks preg, bleeding Time Seen by Provider: 10/06/20 17:26 - History of Present Illness Initial comments: 24-year-old feel present to ER today for chief complaint of vaginal bleeding . Patient states she was here 2 days ago with vaginal bleeding she states that she had bleeding after sex. Patient states that it is slightly heavier today. She denies any large clots. She denies any pain. Patient states that she had a normal ultrasound a few days ago was worried that she was miscarrying and came back to the ER. Patient has an appointment with [facility] tomorrow she is no additional complaints in chart review patient is O+. (Lindy Bautista) - Related Data Home Medications Medication Instructions Recorded Confirmed Citalopram Hydrobromide 20 mg PO DAILY 07/15/18 09/06/20 [Citalopram HBr] lamoTRIgine 200 mg PO BID 12/14/19 09/06/20 Folic Acid 1 mg PO DAILY 09/06/20 09/06/20 Pnv No.95/Ferrous Fum/Folic AC 1 each PO DAILY 09/06/20 09/06/20 [ Multivitamin Tablet] Allergies Allergy/AdvReac Type Severity Reaction Status Date / Time No Known Allergies Allergy Verified 10/02/20 17:40 Review of Systems ROS Other: All systems not noted in ROS Statement are negative. <Lindy Bautista - Last Filed: 10/06/20 19:39> ROS Other: All systems not noted in ROS Statement are negative. <Dyan Peralta - Last Filed: 10/07/20 23:07> ROS Statement: Those systems with pertinent positive or pertinent negative responses have been documented in the HPI. Past Medical History Past Medical History: Asthma, Seizure Disorder Additional Past Medical History / Comment(s): PCOS, sciatica. 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 Past Anesthesia/Blood Transfusion Reactions: No Reported Reaction Additional Past Anesthesia/Blood Transfusion Reaction / Comment(s): NO PRIOR ANESTHESIA HX Past Psychological History: Anxiety, Depression Smoking Status: Former smoker Past Alcohol Use History: None Reported Past Drug Use History: None Reported - Past Family History Mother Family Medical History: No Reported History <Lindy Bautista - Last Filed: 10/06/20 19:39> General Exam Limitations: no limitations <Lindy Bautista - Last Filed: 10/06/20 19:39> - General Exam Comments Initial Comments: General: The patient is awake and alert, in no distress, and does not appear acutely ill. Eye: Pupils are equal, round and reactive to light, extra-ocular movements are intact. No nystagmus. There is normal conjunctiva bilaterally. No signs of icterus. Ears, nose, mouth and throat: There are moist mucous membranes and no oral lesions. Neck: The neck is supple, there is no tenderness or JVD. Cardiovascular: There is a regular rate and rhythm. No murmur, rub or gallop is appreciated. Respiratory: Lungs are clear to auscultation, respirations are non-labored, breath sounds are equal. No wheezes, stridor, rales, or rhonchi. Gastrointestinal: Soft, non-distended, non-tender abdomen without masses or organomegaly noted. There is no rebound or guarding present. : os closed. dark red blood-mild/moderate amount, no evidence of hemorrhage. no cervical motion tenderness/discharge. Musculoskeletal: Normal ROM, no tenderness. Strength 5/5. Sensation intact. Pulses equal bilaterally 2+. Neurological: A&O x 3. CN II-XII intact grossly, There are no obvious motor or sensory deficits. Coordination appears grossly intact. Speech is normal. Skin: Skin is warm and dry and no rashes or lesions are noted. Psychiatric: Cooperative, appropriate mood & affect, normal judgment. (Lindy Bautista) Course Vital Signs 10/06/20 16:39 Temperature 97.9 F Pulse Rate 80 Respiratory 18 Rate Blood Pressure 129/82 O2 Sat by Pulse 98 Oximetry Medical Decision Making - Lab Data Result diagrams: 10/06/20 18:32 10/06/20 18:32 <Lindy Bautista - Last Filed: 10/06/20 19:39> - Lab Data Result diagrams: 10/06/20 18:32 10/06/20 18:32 <Dayn Peralta - Last Filed: 10/07/20 23:07> - Medical Decision Making US viable IUP, with multiple subchorionic hemorrhages. O+. HgB and VS stable. pt has f/u tomorrow with Kalyani Jernigan and will be discharged at this time. She is happy/agreeable to discharge. discussed case with Kalyani Peralta who is agreeable to this care pln. (Lindy Bautista) I was available for consultation in the emergency department. The history and physical exam were done by the midlevel provider. I was consulted for this patients care. I reviewed the case with the midlevel provider and based on their presentation of the patient, I agree with the assessment, medical decision making and plan of care as documented. Chart was dictated using [employer] dictation software. Attempts were made to correct any dictation errors however some typographical errors may persist. Patient was seen during a national state of emergency due to the Covid-19 pandemic. (Dyan Peralta) - Lab Data Lab Results 10/06/20 10/06/20 10/06/20 Range/Units 18:32 18:32 18:32 WBC 7.3 (3.8-10.6) k/uL RBC 4.39 (3.80-5.40) m/uL Hgb 13.0 (11.4-16.0) gm/dL Hct 37.4 (34.0-46.0) % MCV 85.1 (80.0-100.0) fL MCH 29.7 (25.0-35.0) pg MCHC 34.9 (31.0-37.0) g/dL RDW 13.5 (11.5-15.5) % Plt Count 221 (150-450) k/uL MPV 7.5 Neutrophils % 68 % Lymphocytes % 25 % Monocytes % 5 % Eosinophils % 1 % Basophils % 0 % Neutrophils # 5.0 (1.3-7.7) k/uL Lymphocytes # 1.8 (1.0-4.8) k/uL Monocytes # 0.3 (0-1.0) k/uL Eosinophils # 0.1 (0-0.7) k/uL Basophils # 0.0 (0-0.2) k/uL Sodium 136 L (137-145) mmol/L Potassium 4.0 (3.5-5.1) mmol/L Chloride 104 (98-107) mmol/L Carbon Dioxide 26 (22-30) mmol/L Anion Gap 6 mmol/L BUN 8 (7-17) mg/dL Creatinine 0.43 L (0.52-1.04) mg/dL Est GFR (CKD-EPI)AfAm >90 (>60 ml/min/1.73 sqM) Est GFR (CKD-EPI)NonAf >90 (>60 ml/min/1.73 sqM) Glucose 79 (74-99) mg/dL Calcium 9.5 (8.4-10.2) mg/dL Total Bilirubin 0.4 (0.2-1.3) mg/dL AST 19 (14-36) U/L ALT 12 (4-34) U/L Alkaline Phosphatase 41 (38-126) U/L Total Protein 6.5 (6.3-8.2) g/dL Albumin 4.0 (3.5-5.0) g/dL HCG, Quant 16658.4 mIU/mL Urine Color Yellow Urine Appearance Cloudy H (Clear) Urine pH 5.5 (5.0-8.0) Ur Specific [place] 1.018 (1.001-1.035) Urine Protein Trace H (Negative) Urine Glucose (UA) Negative (Negative) Urine Ketones Negative (Negative) Urine Blood Large H (Negative) Urine Nitrite Negative (Negative) Urine Bilirubin Negative (Negative) Urine Urobilinogen <2.0 (<2.0) mg/dL Ur Leukocyte Esterase Negative (Negative) Urine RBC >182 H (0-5) /hpf Urine WBC 23 H (0-5) /hpf Ur Squamous Epith Cells 4 (0-4) /hpf Urine Bacteria Rare H (None) /hpf Urine Mucus Few H (None) /hpf Disposition Is patient prescribed a controlled substance at d/c from ED?: No Time of Disposition: 18:55 <Lindy Bautista - Last Filed: 10/06/20 19:39> <Dyan Peralta - Last Filed: 10/07/20 23:07> Clinical Impression: Subchorionic bleed, Vaginal bleeding during Disposition: HOME SELF-CARE Condition: Good Instructions (If sedation given, give patient instructions): Subchorionic Hemorrhage (ED) Additional Instructions: Please use medication as discussed. Please follow-up with OBGYN as scheduled tomorrow. Please return to emergency room if the symptoms increase or worsen or for any other concerns. Referrals: Sima Stanton MD [Primary Care Provider] - 1-2 days Nena Jernigan DO [Doctor of Osteopathic Medicine] - 1-2 days
[2020-10-06 19:00] LABS: ALT 12 U/L (4-34); AST 19 U/L (14-36); African American GFR (CKD) >90 (>60 ml/min/1.73 sqM); Alkaline Phosphatase 41 U/L (38-126); Anion Gap 6 mmol/L; Blood Urea Nitrogen 8 mg/dL (7-17); Calcium 9.5 mg/dL (8.4-10.2); Carbon Dioxide 26 mmol/L (22-30); Chloride 104 mmol/L (98-107); Glucose 79 mg/dL (74-99); Non-African American GFR(CKD) >90 (>60 ml/min/1.73 sqM); Sodium 136 mmol/L (137-145); Total Bilirubin 0.4 mg/dL (0.2-1.3); Total Protein 6.5 g/dL (6.3-8.2)
[2020-10-06 20:40] LABS: HCG,Quantitative Serum 88307.4 mIU/mL
== END 2020-10-06 19:35 | disposition home or self-care (01) ==
LOC: EC 16:22
DX: O20.8 Other hemorrhage in early pregnancy (principal); O99.511 Diseases of the respiratory system complicating pregnancy, first trimester; J45.909 Unspecified asthma, uncomplicated; G40.909 Epilepsy, unspecified, not intractable, without status epilepticus; F32.9 Major depressive disorder, single episode, unspecified; O99.341 Other mental disorders complicating pregnancy, first trimester; O99.351 Diseases of the nervous system complicating pregnancy, first trimester; Z3A.12 12 weeks gestation of pregnancy; Z87.891 Personal history of nicotine dependence
CPT/HCPCS: 36415; 76801; 80053; 81001; 84702; 85025; 87086; 99284

== ENCOUNTER 2020-10-28 09:15 | Emergency (ER) | payer OTHER ==
[2020-10-28 09:20] VITALS: BP 110/75; RESP 18; TEMP 98
--- NOTE | 2020-10-28 11:24 | US ---
EXAMINATION TYPE: US OB >= 14 wk fetus DATE OF EXAM: 10/28/2020 COMPARISON: US CLINICAL HISTORY: Bleeding, cramping TECHNIQUE: Transabdominal (TA) GESTATIONAL AGE / DATING Physician Established: (15 weeks/2 days) EDC: 04/19/21 Dates by LMP: (15 weeks/2 days) EDC: 04/19/21 Dates by First Scan (14 weeks/0 days) EDC: 04-24-21 Dates by Current Scan (14 weeks/2 days) EDC: 04-26-21 SURVEY IUP: Single PLACENTA: Posterior/fundal PREVIA: No Previa THOM: 9.3 cm CERVICAL LENGTH (transabdominal: norm > 3.0cm): 3.1 cm BIOMETRY PRESENTATION: Vertex BPD: Head too low, patient morbidly obese, unable to obtain accurate head measurement HC: Head too low, patient morbidly obese, unable to obtain accurate head measurement AC: 7.6 cm 14 weeks / 1 days FL: 1.3 cm 13 weeks / 6 days ESTIMATED WEIGHT IN GRAMS: 89 grams ESTIMATED WEIGHT IN LBS/OZ: 0 lbs. 3 oz. WEIGHT PERCENTAGE BASED ON ESTABLISHED DATES: <3 % HC/AC: -- FL/AC: 17.3 HEART RATE: 166 bpm RHYTHM: Normal Morbidly obese patient. IMPRESSION: 1. Morbidly obese patient causing suboptimal evaluation of this study. There is a single intrauterine with an average ultrasound gestational age of 14 weeks and 2 days. Last menstrual period g estational age is 15 weeks and 2 days. heart rate is 166 bpm. Please see measurements above. 2. Biparietal diameter and head circumference could not be obtained. 3.WEIGHT PERCENTAGE BASED ON ESTABLISHED DATES: <3 %
[2020-10-28 11:25] LABS: Amorphous Sediment,Urine Occasional /hpf; Appearance,Urine Cloudy (Clear); Bacteria,Urine Rare /hpf; Bilirubin,Urine Negative (Negative); Blood,Urine Large (Negative); Color,Urine Yellow; Glucose,Urine (UA) Negative (Negative); Ketones,Urine Negative (Negative); Leukocyte Esterase,Urine Trace (Negative); Mucus,Urine Occasional /hpf; Nitrite,Urine Negative (Negative); PH, Urine 7.5 (5.0-8.0); Protein,Urine Negative (Negative); RBC,Urine 1 /hpf (0-5); Specific Gravity,Urine 1.012 (1.001-1.035); Squamous Epithelial Cell,Urine 2 /hpf (0-4); Urobilinogen,Urine <2.0 mg/dL (<2.0); WBC,Urine 2 /hpf (0-5)
--- NOTE | 2020-10-28 12:02 | ED ---
Abdominal Pain HPI - General Chief Complaint: Abdominal Pain Stated Complaint: Cramping, 15 weeks Preg Time Seen by Provider: 10/28/20 09:35 Source: patient Mode of arrival: ambulatory Limitations: no limitations - History of Present Illness Initial Comments: 25 old female patient presents to the emergency department today for evaluation of abdominal cramping and vaginal bleeding. Patient states she is 15 weeks . . States she does have a subchorionic hemorrhage. That she did pass 2 large clots today. Did have some cramping that lasted for 2-3 hours earlier in the morning. She denies any dizziness or weakness. Denies any hematuria, dysuria, urinary frequency, urinary urgency. 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 Patient denies any recent rash, fever, chills, cough, shortness of breath, chest pain, nausea, vomiting, diarrhea, constipation, back pain, numbness, tingling, dizziness, weakness, headache, visual changes, or any other complaints. - Related Data Home Medications Medication Instructions Recorded Confirmed Citalopram Hydrobromide 20 mg PO DAILY 07/15/18 10/28/20 [Citalopram HBr] lamoTRIgine 200 mg PO BID 12/14/19 10/28/20 Folic Acid 3 mg PO HS 09/06/20 10/28/20 Aspirin 81 mg PO DAILY 10/28/20 10/28/20 Multivitamins, Thera [Multivitamin 1 tab PO DAILY 10/28/20 10/28/20 (formulary)] Allergies Allergy/AdvReac Type Severity Reaction Status Date / Time No Known Allergies Allergy Verified 10/28/20 09:52 Review of Systems ROS Statement: Those systems with pertinent positive or pertinent negative responses have been documented in the HPI. ROS Other: All systems not noted in ROS Statement are negative. Past Medical History Past Medical History: Asthma, Seizure Disorder Additional Past Medical History / Comment(s): PCOS, sciatica. 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 Past Anesthesia/Blood Transfusion Reactions: No Reported Reaction Additional Past Anesthesia/Blood Transfusion Reaction / Comment(s): NO PRIOR ANESTHESIA HX Past Psychological History: Anxiety, Depression Smoking Status: Former smoker Past Alcohol Use History: None Reported Past Drug Use History: None Reported - Past Family History Mother Family Medical History: No Reported History General Exam Limitations: no limitations General appearance: alert, in no apparent distress, other (Physical well- developed, well-nourished adult female patient in no acute distress.) Respiratory exam: Present: normal lung sounds bilaterally. Absent: respiratory distress, wheezes, rales, rhonchi, stridor Cardiovascular Exam: Present: regular rate, normal rhythm, normal heart sounds. Absent: systolic murmur, diastolic murmur, rubs, gallop, clicks GI/Abdominal exam: Present: soft, normal bowel sounds. Absent: distended, tenderness, guarding, rebound, rigid Neurological exam: Present: alert, oriented X3, CN II-XII intact Psychiatric exam: Present: normal affect, normal mood Skin exam: Present: warm, dry, intact, normal color. Absent: rash Course Vital Signs 10/28/20 09:17 Temperature 98.0 F Pulse Rate 94 Respiratory 18 Rate Blood Pressure 110/75 O2 Sat by Pulse 100 Oximetry Medical Decision Making - Medical Decision Making 25 year-old female patient presents to the emergency department today for evaluation of vaginal bleeding and cramping in . She is 15 weeks . . Physical examination reveals soft nontender abdomen. States her bleeding has slowed in its barely present. She did have ultrasound which showed intrauterine heart rate 166. Urinalysis shows no obvious signs of infection. To be discharged from throat we join for recheck in 1-2 days. She does have an ultrasound coming up next week. Return parameters were discussed in detail. She verbalizes understanding and agrees this plan. My attending is Dr. An. - Lab Data Lab Results 10/28/20 Range/Units 10:34 Urine Color Yellow Urine Appearance Cloudy H (Clear) Urine pH 7.5 (5.0-8.0) Ur Specific [place] 1.012 (1.001-1.035) Urine Protein Negative (Negative) Urine Glucose (UA) Negative (Negative) Urine Ketones Negative (Negative) Urine Blood Large H (Negative) Urine Nitrite Negative (Negative) Urine Bilirubin Negative (Negative) Urine Urobilinogen <2.0 (<2.0) mg/dL Ur Leukocyte Esterase Trace H (Negative) Urine RBC 1 (0-5) /hpf Urine WBC 2 (0-5) /hpf Ur Squamous Epith Cells 2 (0-4) /hpf Amorphous Sediment Occasional H (None) /hpf Urine Bacteria Rare H (None) /hpf Urine Mucus Occasional H (None) /hpf - Radiology Data Radiology results: report reviewed, image reviewed Morbidly obese patient causing suboptimal evaluation of this study. There is a single intrauterine with an average ultrasound gestational age of 14 weeks and 2 days. Last measured. Gestational age is 15 weeks and 2 days. heart rate is 166. Biparietal diameter and head circumference cannot be obtained Disposition Clinical Impression: Vaginal bleeding during , Abdominal pain during Disposition: HOME SELF-CARE Condition: Good Instructions (If sedation given, give patient instructions): Abdominal Pain in (ED) Additional Instructions: Follow-up with your [employer]GEMAN HELPER for recheck as soon as possible. Return for any new, worsening, or concerning symptoms. Is patient prescribed a controlled substance at d/c from ED?: No Referrals: Sima Stanton MD [Primary Care Provider] - 1-2 days Time of Disposition: 12:01
[2020-10-28 12:42] VITALS: PULSE 70
== END 2020-10-28 12:43 | disposition home or self-care (01) ==
LOC: EC 09:15
DX: O20.9 Hemorrhage in early pregnancy, unspecified (principal); O26.892 Other specified pregnancy related conditions, second trimester; R10.9 Unspecified abdominal pain; O99.212 Obesity complicating pregnancy, second trimester; E66.01 Morbid (severe) obesity due to excess calories; O99.342 Other mental disorders complicating pregnancy, second trimester; F32.9 Major depressive disorder, single episode, unspecified; O99.352 Diseases of the nervous system complicating pregnancy, second trimester; G40.909 Epilepsy, unspecified, not intractable, without status epilepticus; O99.512 Diseases of the respiratory system complicating pregnancy, second trimester; J45.909 Unspecified asthma, uncomplicated; Z79.82 Long term (current) use of aspirin; Z79.899 Other long term (current) drug therapy; Z87.891 Personal history of nicotine dependence; Z3A.15 15 weeks gestation of pregnancy
CPT/HCPCS: 76805; 81001; 99284

== ENCOUNTER → 2020-11-01 | Outpatient (CLI) | payer OTHER | END | disposition home or self-care (01) | LOC: LABWHC1 09:51 | PROVIDERS: ATTEND Nurse Practitioner Family | DX: G40.909 Epilepsy, unspecified, not intractable, without status epilepticus (principal); E55.9 Vitamin D deficiency, unspecified; K90.89 Other intestinal malabsorption; E66.01 Morbid (severe) obesity due to excess calories | CPT/HCPCS: 36415; 80175 ==

== ENCOUNTER → 2020-11-01 | Outpatient (CLI) | payer OTHER ==
[2020-11-01 10:59] VITALS: BP 112/74; PULSE 77; RESP 16; TEMP 97.9; BMI 37.7
--- NOTE | 2020-11-01 10:59 | P.BASOAP ---
Subjective Progress Note Date: 11/01/20 Principal diagnosis: morbid obesity Patient returns for follow-up. She is now 16 weeks . She is doing well. Weight has stayed the same. She is at 213 currently. 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 She is tired. She had 2 episodes of emesis. Heartburn on one occasion. Mild nausea. She never had her labs drawn. She says she will do these today. No pain. She is not taking antiacids. Objective - Exam Abdomen: Soft, nontender, nondistended Assessment/Plan (1) Morbid obesity Narrative/Plan: Patient overall doing well. Continue follow-up with OB on a 1-2 visit per month basis. Return visit with us in 2 months. Check 1 labs. Plan: Date: Initial Weight: 136.333 kg Initial BMI: Current Weight: Current BMI: Type of Surgery: Total Volume in Band: Previous Volume: Volume Removed: Volume Added: Band Size:
[2020-11-01 11:22] LABS: HCT 31.4 % (34.0-46.0); HGB 11.5 gm/dL (11.4-16.0); MCH 31.4 pg (25.0-35.0); MCHC 36.6 g/dL (31.0-37.0); MCV 85.8 fL (80.0-100.0); Mean Platelet Volume 7.6; Platelet Count 193 k/uL (150-450); RBC 3.66 m/uL (3.80-5.40); WBC 5.9 k/uL (3.8-10.6)
[2020-11-01 17:51] LABS: African American GFR (CKD) 154.8 (60.0-200.0); Albumin 3.7 g/dL (3.80-4.90); Albumin/Globulin Ratio 1.95 (1.60-3.17); Calcium 8.4 mg/dL (8.7-10.3); Globulin 1.9 g/dL (1.6-3.3); Non-African American GFR(CKD) 133.6 (60.0-200.0); Potassium 3.7 mmol/L (3.5-5.5); Total Bilirubin 0.4 mg/dL (0.2-1.2); Total Protein 5.6 g/dL (6.2-8.2)
[2020-11-01 18:01] LABS: Folate, Serum 21.6 ng/mL
== END ==
LOC: BARWHC3 10:24
PROVIDERS: ATTEND Surgery
DX: O99.212 Obesity complicating pregnancy, second trimester (principal); O21.9 Vomiting of pregnancy, unspecified; E66.01 Morbid (severe) obesity due to excess calories; Z3A.16 16 weeks gestation of pregnancy; Z87.891 Personal history of nicotine dependence
CPT/HCPCS: 84425; 80053; 82607; 82746; 83540; 85027; 82306; 97803; G0463; 99211

== ENCOUNTER 2020-11-02 13:29 | Observation (INO) | payer OTHER ==
[2020-11-02] MEDS ORDERED: SODIUM CHLORIDE 0.9% 1,000 ML IV STA (14:09)
[2020-11-02] MEDS ORDERED: ONDANSETRON 4 MG/2 ML VIAL IVP STA (14:09)
[2020-11-02] MEDS ORDERED: MORPHINE SULFATE 4 MG/ML SYRINGE IV STA (14:09)
--- NOTE | 2020-11-02 14:16 | ED ---
General Adult HPI - General Chief complaint: Vaginal Bleeding Stated complaint: 16 wks preg, abd pain Time Seen by Provider: 11/02/20 13:52 Source: patient, EMS Mode of arrival: EMS Limitations: no limitations - History of Present Illness Initial comments: 25 year-old female patient who is 16 weeks , currently seeing Dr. Jernigan presents to the ER for evaluation of lower abdominal cramping and vaginal bleeding. Patient states that she has been having bleeding for the last four weeks. States that it did seem somewhat heavier today. States that she has been having cramping which worsened today. Saw Dr. Jernigan, had normal heart tones, and was advised that this could be uterine stretching. Patient states that symptoms seemed worse so she presented here for further evaluation. While using the restroom prior to being seen patient did deliver a fetus. She reports improved pain, continued bleeding. She denies any dizziness or weakness. Denies any fever or chills. - Related Data Home Medications Medication Instructions Recorded Confirmed Citalopram Hydrobromide 20 mg PO DAILY 07/15/18 11/02/20 [Citalopram HBr] lamoTRIgine 200 mg PO BID 12/14/19 11/02/20 Folic Acid 1 mg PO HS 09/06/20 11/02/20 Aspirin 81 mg PO DAILY 10/28/20 11/02/20 Aspirin 81 mg PO DAILY 11/02/20 11/02/20 Pnv,Calcium 72/Iron/Folic Acid 1 tab PO DAILY 11/02/20 11/02/20 [ Plus Tablet] Allergies Allergy/AdvReac Type Severity Reaction Status Date / Time No Known Allergies Allergy Verified 11/02/20 14:07 Review of Systems ROS Statement: Those systems with pertinent positive or pertinent negative responses have been documented in the HPI. ROS Other: All systems not noted in ROS Statement are negative. Past Medical History Past Medical History: Asthma, Seizure Disorder Additional Past Medical History / Comment(s): PCOS, sciatica. 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 Vital signs upon presentation temperature 97.8F, pulse 72, respirations 18, blood pressure 126/78, pulse ox 100% on room air.) Eye exam: Present: normal appearance, PERRL, EOMI. Absent: scleral icterus, conjunctival injection, periorbital swelling ENT exam: Present: normal exam, normal oropharynx, mucous membranes moist Respiratory exam: Present: normal lung sounds bilaterally. Absent: respiratory distress, wheezes, rales, rhonchi, stridor Cardiovascular Exam: Present: regular rate, normal rhythm, normal heart sounds. Absent: systolic murmur, diastolic murmur, rubs, gallop, clicks GI/Abdominal exam: Present: soft, tenderness (Suprapubic), normal bowel sounds. Absent: distended, guarding, rebound, rigid External exam: Present: other (mild dark red vaginal bleeding) Neurological exam: Present: alert, oriented X3, CN II-XII intact Psychiatric exam: Present: normal affect, normal mood Skin exam: Present: warm, dry, intact, normal color. Absent: rash Course Vital Signs 11/02/20 11/02/20 13:29 16:52 Temperature 97.8 F 98.0 F Pulse Rate 72 80 Respiratory 18 20 Rate Blood Pressure 126/78 120/82 O2 Sat by Pulse 100 98 Oximetry Medical Decision Making - Medical Decision Making 25 year-old female patient who was 16 weeks presents to the emergency department today for evaluation of lower abdominal cramping and vaginal bleedi ng. Unfortunately patient did deliver fetus in the restroom prior to official examination. I was called to the bathroom, fetus was hanging by umbilical cord from the vagina. Patient went to stand up the fetus broke free and was placed in a basin. Patient did have a small blood clot pass after this, but no other tissue or evidence for placenta. Abdomen is soft, mild suprapubic tenderness. V/S stable. Labs obtained. Dr. Jernigan is contacted, recommends admission to the Labor and Delivery unit for monitoring and possible D&C. Patient is agreeable with this plan. Case discussed with my attending Dr. An. - Lab Data Result diagrams: 11/02/20 14:27 11/02/20 14:27 Lab Results 11/02/20 11/02/20 Range/Units 14:27 14:27 WBC 8.8 (3.8-10.6) k/uL RBC 3.84 (3.80-5.40) m/uL Hgb 11.6 (11.4-16.0) gm/dL Hct 32.5 L (34.0-46.0) % MCV 84.6 (80.0-100.0) fL MCH 30.3 (25.0-35.0) pg MCHC 35.8 (31.0-37.0) g/dL RDW 14.0 (11.5-15.5) % Plt Count 182 (150-450) k/uL MPV 7.6 Neutrophils % 85 % Lymphocytes % 9 % Monocytes % 4 % Eosinophils % 0 % Basophils % 0 % Neutrophils # 7.5 (1.3-7.7) k/uL Lymphocytes # 0.8 L (1.0-4.8) k/uL Monocytes # 0.4 (0-1.0) k/uL Eosinophils # 0.0 (0-0.7) k/uL Basophils # 0.0 (0-0.2) k/uL Sodium 133 L (137-145) mmol/L Potassium 3.6 (3.5-5.1) mmol/L Chloride 106 (98-107) mmol/L Carbon Dioxide 21 L (22-30) mmol/L Anion Gap 6 mmol/L BUN 6 L (7-17) mg/dL Creatinine 0.38 L (0.52-1.04) mg/dL Est GFR (CKD-EPI)AfAm >90 (>60 ml/min/1.73 sqM) Est GFR (CKD-EPI)NonAf >90 (>60 ml/min/1.73 sqM) Glucose 99 (74-99) mg/dL Calcium 9.0 (8.4-10.2) mg/dL Total Bilirubin 0.3 (0.2-1.3) mg/dL AST 19 (14-36) U/L ALT 8 (4-34) U/L Alkaline Phosphatase 39 (38-126) U/L Total Protein 5.9 L (6.3-8.2) g/dL Albumin 3.4 L (3.5-5.0) g/dL Disposition Clinical Impression: Miscarriage, Retained products of conception Disposition: ADMITTED IP TO THIS [facility] Condition: Serious Decision to Admit Reason: Admit from EC Decision Date: 11/02/20 Decision Time: 15:35
[2020-11-02 14:36] LABS: Basophils % (A) 0 %; Eosinophils % (A) 0 %; HCT 32.5 % (34.0-46.0); HGB 11.6 gm/dL (11.4-16.0); Lymphocytes # (A) 0.8 k/uL (1.0-4.8); Lymphocytes % (A) 9 %; MCH 30.3 pg (25.0-35.0); MCHC 35.8 g/dL (31.0-37.0); MCV 84.6 fL (80.0-100.0); Mean Platelet Volume 7.6; Monocytes # (A) 0.4 k/uL (0-1.0); Monocytes % (A) 4 %; Neutrophils # (A) 7.5 k/uL (1.3-7.7); Neutrophils % (A) 85 %; Platelet Count 182 k/uL (150-450); RBC 3.84 m/uL (3.80-5.40); WBC 8.8 k/uL (3.8-10.6)
[2020-11-02 14:46] LABS: ALT 8 U/L (4-34); AST 19 U/L (14-36); African American GFR (CKD) >90 (>60 ml/min/1.73 sqM); Albumin 3.4 g/dL (3.5-5.0); Alkaline Phosphatase 39 U/L (38-126); Anion Gap 6 mmol/L; Blood Urea Nitrogen 6 mg/dL (7-17); Carbon Dioxide 21 mmol/L (22-30); Chloride 106 mmol/L (98-107); Glucose 99 mg/dL (74-99); Non-African American GFR(CKD) >90 (>60 ml/min/1.73 sqM); Potassium 3.6 mmol/L (3.5-5.1); Sodium 133 mmol/L (137-145); Total Bilirubin 0.3 mg/dL (0.2-1.3); Total Protein 5.9 g/dL (6.3-8.2)
[2020-11-02] MEDS ORDERED: NALOXONE 0.4 MG/ML 1 ML VIAL IV PRN (15:33)
[2020-11-02] MEDS ORDERED: MORPHINE SULFATE 4 MG/ML SYRINGE IV PRN (15:33)
[2020-11-02] MEDS ORDERED: ONDANSETRON 4 MG/2 ML VIAL IVP PRN (15:33)
[2020-11-02] MEDS ORDERED: OXYTOCIN 30 UNITS/500 ML NS 30 UNIT in SALINE 1 500ML.BAG IV SCH ×2 (18:15→20:15)
[2020-11-02] MEDS ORDERED: miSOPROStoL 200 MCG TAB PO STA (18:29)
[2020-11-02] MEDS ORDERED: ceFAZolin 1,000 MG VIAL ONE (19:32)
[2020-11-02] MEDS ORDERED: fentaNYL (PF) 50 MCG/ML 2 ML AMP ONE (19:32)
[2020-11-02] MEDS ORDERED: PROPOFOL 10 MG/ML 20 ML VIAL IV ONE (19:32)
[2020-11-02] MEDS ORDERED: ONDANSETRON 4 MG/2 ML VIAL ONE (19:32)
[2020-11-02] MEDS ORDERED: METHYLERGONOVINE 0.2 MG/ML 1 ML AMP ONE (19:32)
[2020-11-02] MEDS ORDERED: KETOROLAC 15 MG/ML 1 ML VIAL ONE (19:32)
[2020-11-02] MEDS ORDERED: SODIUM CHLORIDE 0.9% 100 ML BAG ONE (19:32)
--- NOTE | 2020-11-02 20:06 | P.OP ---
Date of Procedure: 11/02/20 Preoperative Diagnosis: missed ab 16 weeks, retained placenta Postoperative Diagnosis: same Procedure(s) Performed: suction dilation and curettage Anesthesia: MAC Surgeon: Nena Jernigan Estimated Blood Loss (ml): 25 IV fluids (ml): 500 Urine output (ml): 100 Pathology: other (retained palcenta) Condition: stable Disposition: observation Indications for Procedure: 25-year-old at 16 weeks of presented to the emergency department with delivery of 16 week fetus. Patient was observed on labor and delivery portion of the placenta was delivered a secondary portion was palpated above the cervix therefore patient was taken back to the operating suite for retained placenta. Operative Findings: Large amount of placenta was removed via suction Description of Procedure: Patient was taken back to the operating suite where general anesthesia was performed with anesthesia department. She was prepped and draped in normal sterile fashion in the dorsal lithotomy position a red rubber catheter was used to drain the bladder of clear yellow urine. A weighted speculum was placed the posterior vaginal vault intralipids the cervix is visualized and grasped with single-tooth tenaculum. A 12 curved curette was placed through the cervix and a large amount of products of conception were removed. The uterus was noted to be firm at this time. A sharp curettage revealed further products remaining, at this point an 8 curved suction curette was placed into the cervix and a minimal amount of products were removed. Minimal bleeding was noted from the cervix. At this time all its was removed from the patient's vaginal vault the single-tooth tenaculum was taken off of the anterior lip of the cervix and hemostasis was appreciated. The uterus is noted to be firm. Minimal bleeding was appreciated. All counts were noted to be correct 2. Specimen was then sent to pathology for analysis. Patient did tolerated procedure well.
[2020-11-02] MEDS ORDERED: ZOLPIDEM 5 MG TAB PO PRN (20:09)
[2020-11-02] MEDS ORDERED: BENZOCAINE/MENTHOL SPRAY 1 GM/SPRAY AEROSOL TOPICAL PRN (20:09)
[2020-11-02] MEDS ORDERED: diphenhydrAMINE 50 MG CAP PO PRN (20:09)
[2020-11-02] MEDS ORDERED: HYDROCORTISONE 2.5% RECTAL CREAM 30 GM TUBE RECTAL PRN (20:09)
[2020-11-02] MEDS ORDERED: SIMETHICONE 80 MG CHEWABLE PO PRN (20:09)
[2020-11-02] MEDS ORDERED: ACETAMINOPHEN TAB 325 MG TAB PO PRN (20:09)
[2020-11-02] MEDS ORDERED: diphenhydrAMINE 50 MG/ML 1 ML VIAL IVP PRN ×2 (20:09)
[2020-11-02] MEDS ORDERED: diphenhydrAMINE 25 MG CAP PO PRN (20:09)
[2020-11-02] MEDS ORDERED: LACTATED RINGERS 1,000 ML IV SCH (20:15)
[2020-11-02] MEDS ORDERED: IBUPROFEN 600 MG TAB PO SCH (22:00)
[2020-11-02] MEDS: lamoTRIgine 100 MG TAB PO SCH (22:37)
[2020-11-03] MEDS ORDERED: SENNOSIDES-DOCUSATE SODIUM 1 EACH TAB PO SCH (08:00)
[2020-11-03] MEDS: lamoTRIgine 100 MG TAB PO SCH (08:13)
[2020-11-03 08:34] VITALS: BP 110/61; PULSE 73; RESP 15; TEMP 98
--- NOTE | 2020-11-03 08:55 | P.DS ---
Providers Date of admission: 11/02/20 15:21 Expected date of discharge: 11/03/20 Attending physician: Nena Jernigan Primary care physician: Sima Stanton - Discharge Diagnosis(es) (1) 16 weeks gestation of Current Visit: Yes Status: Acute (2) Missed with demise before 20 completed weeks of gestation Current Visit: Yes Status: Acute (3) Retained products of conception Current Visit: Yes Status: Acute (4) Subchorionic bleed Current Visit: No Status: Acute Hospital Course: This is a 25-year-old 1 para 0 at 16 weeks that presented to the hospital after delivery of her 16 week fetus. Placenta remained intact. Patient was seen in the emergency department minimal bleeding was noted. Patient was transferred to the obstetrical floor where she was monitored and Cytotec was given. Placenta did not deliver bleeding was stable but suction D&C was performed for retained placenta. Patient did well for the surgery. For full details on the surgery please see the operative report. Patient's postoperative course has been uneventful. On this postoperative day #1 she is grieving and sad, tearful after loss of her 16 week infant. Patient medically is doing well. She is ambulating and voiding without difficulty. Her lochia is minimal. She states her pain is controlled with oral ibuprofen. She is tolerating a regular diet without nausea or vomiting. She would like discharge home. Patient Condition at Discharge: Good Plan - Discharge Summary New Discharge Prescriptions: No Action Citalopram Hydrobromide [Citalopram HBr] 20 mg PO DAILY lamoTRIgine 200 mg PO BID Aspirin 81 mg PO DAILY Pnv,Calcium 72/Iron/Folic Acid [ Plus Tablet] 1 tab PO DAILY Aspirin 81 mg PO DAILY Folic Acid 1 mg PO HS Discharge Medication List Citalopram Hydrobromide [Citalopram HBr] 20 mg PO DAILY 07/15/18 [History] lamoTRIgine 200 mg PO BID 12/14/19 [History] Folic Acid 1 mg PO HS 09/06/20 [History] Aspirin 81 mg PO DAILY 10/28/20 [History] Aspirin 81 mg PO DAILY 11/02/20 [History] Pnv,Calcium 72/Iron/Folic Acid [ Plus Tablet] 1 tab PO DAILY 11/02/20 [History] Follow up Appointment(s)/Referral(s): Nena Jernigan DO [Doctor of Osteopathic Medicine] - 1 Week Patient Instructions/Handouts: *Surgery [facility] - ([place]) D&C Post-Op Instructions Discharge Disposition: HOME SELF-CARE
[2020-11-03] MEDS ORDERED: PRENATAL VIT-IRON-FOLIC ACID 1 EACH CAP PO SCH (09:00)
[2020-11-03] MEDS ORDERED: CITALOPRAM HYDROBROMIDE 20 MG TAB PO SCH (09:00)
--- NOTE | 2020-11-24 16:35 | P.HPOB ---
History of Present Illness H&P Date: 11/02/20 Chief Complaint: Missed AB 16 weeks, known subchorionic hemorrhage This is a 25-year-old at 16 weeks of which presented to the office today for routine ultrasound and following of subchorionic hemorrhage. Ultrasound was completed subchorionic hemorrhage was noted to be stable, patient stated her bleeding was less thinning from the weekend. Patient states she was seen in the ER on or Saturday for passage of large clot and was sent home with a reassuring ultrasound. Patient did note some lower groin pain but was able to go fishing yesterday and only noted pain with walking. Patient subsequently went home from the office and went to get lunch, patient states she noted increase and discomfort, she was able to eat lunch then upon going to the bathroom and had delivery of her 16 week fetus. Patient subsequently presented to the emergency department soon afterwards. Review of Systems Constitutional: Denies chills, Denies fatigue, Denies fever Ears, nose, mouth and throat: Denies headache Cardiovascular: Reports leg edema Respiratory: Denies dyspnea Genitourinary: Reports Past Medical History Past Medical History: Asthma, Seizure Disorder Additional Past Medical History / Comment(s): PCOS, sciatica. 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 Past Anesthesia/Blood Transfusion Reactions: No Reported Reaction Additional Past Anesthesia/Blood Transfusion Reaction / Comment(s): NO PRIOR ANESTHESIA HX Past Psychological History: Anxiety, Depression Smoking Status: Former smoker Past Alcohol Use History: None Reported Past Drug Use History: None Reported - Past Family History Mother Family Medical History: No Reported History Medications and Allergies Home Medications Medication Instructions Recorded Confirmed Type Citalopram Hydrobromide 20 mg PO DAILY 07/15/18 11/02/20 History [Citalopram HBr] lamoTRIgine 200 mg PO BID 12/14/19 11/02/20 History Folic Acid 1 mg PO HS 09/06/20 11/02/20 History Aspirin 81 mg PO DAILY 10/28/20 11/02/20 History Aspirin 81 mg PO DAILY 11/02/20 11/02/20 History Pnv,Calcium 72/Iron/Folic Acid 1 tab PO DAILY 06/02/21 06/02/21 History [ Plus Tablet] Allergies Allergy/AdvReac Type Severity Reaction Status Date / Time No Known Allergies Allergy Verified 11/02/20 14:07 Exam Osteopathic Statement: *. No significant issues noted on an osteopathic structural exam other than those noted in the History and Physical/Consult. Vital Signs Temp Pulse Resp BP Pulse Ox 11/02/20 13:29 97.8 F 72 18 126/78 100 Intake and Output 11/02/20 11/02/20 11/02/20 06:59 14:59 22:59 Other: Weight 110.223 kg Targeted exam was performed in this date and manager appointment a well-nourished well- developed patient in obvious distress and she just delivered her 16 week fetus. Abdomen is noted to be soft on vaginal exam the umbilical cord is protruding out the vaginal opening, placenta is appreciated at the cervix. Results Result Diagrams: 11/02/20 14:27 11/02/20 14:27 Abnormal Lab Results - Last 24 Hours (Table) 11/02/20 11/02/20 Range/Units 14:27 14:27 Hct 32.5 L (34.0-46.0) % Lymphocytes # 0.8 L (1.0-4.8) k/uL Sodium 133 L (137-145) mmol/L Carbon Dioxide 21 L (22-30) mmol/L BUN 6 L (7-17) mg/dL Creatinine 0.38 L (0.52-1.04) mg/dL Total Protein 5.9 L (6.3-8.2) g/dL Albumin 3.4 L (3.5-5.0) g/dL Assessment and Plan (1) 16 weeks gestation of Status: Acute Code(s): Z3A.16 - 16 WEEKS GESTATION OF SNOMED Code(s): 80454475 (2) Missed with demise before 20 completed weeks of gestation Status: Acute Code(s): O02.1 - MISSED SNOMED Code(s): 25067274 (3) Morbid obesity Status: Acute Code(s): E66.01 - MORBID (SEVERE) OBESITY DUE TO EXCESS CALORIES SNOMED Code(s): 600738150 Plan: To be 5-year-old 1 para 0 at 16 weeks of status post vaginal delivery of a 16 week fetus. Patient was seen in the emergency department bleeding was noted to be stable with placenta in place. Patient was transferred to labor and delivery for further evaluation treatment. Patient is admitted to labor and delivery bleeding is noted to be stable. We'll await delivery of the placenta.
== END 2020-11-03 08:58 | disposition home or self-care (01) ==
LOC: EC 13:29 → 4FBP 15:21
PROVIDERS: ADMIT Obstetrics & Gynecology Obstetrics; ATTEND Obstetrics & Gynecology Obstetrics
DX: O02.1 Missed abortion (principal); J45.909 Unspecified asthma, uncomplicated; G40.909 Epilepsy, unspecified, not intractable, without status epilepticus; F41.9 Anxiety disorder, unspecified; F32.9 Major depressive disorder, single episode, unspecified; M54.30 Sciatica, unspecified side; E28.2 Polycystic ovarian syndrome; Z3A.16 16 weeks gestation of pregnancy; Z79.899 Other long term (current) drug therapy; Z79.82 Long term (current) use of aspirin; Z98.84 Bariatric surgery status; Z87.891 Personal history of nicotine dependence
CPT/HCPCS: 59820; 96374; 96375; 99285; 36415; 88305; 80053; 85025; 88300; G0378 ×2; J2270; J2210; J2405; J0690; S0191; J3010; J2590; J1885; J2704; 96361

== ENCOUNTER → 2021-01-24 | Outpatient (CLI) | payer OTHER ==
[2021-01-24 13:31] VITALS: BP 103/70; PULSE 82; RESP 18; TEMP 98.4; BMI 38.2
--- NOTE | 2021-01-24 13:56 | P.BASOAP ---
Subjective Progress Note Date: 01/24/21 Principal diagnosis: Morbid obesity Patient fortunately lost her at 16 weeks. She despite that became once again and she is now at 7 weeks. She has been trying to do better with her protein intake. She has gained 3 pounds since her last visit. Mild heartburn at times. Not taking antacids currently. Labs checked in November showed that her protein and albumin were slightly low. Vitamin D also slightly low. Objective - Vital Signs Vital signs: Vital Signs Temp 98.4 F 01/24/21 13:26 Pulse 82 01/24/21 13:26 Resp 18 01/24/21 13:26 BP 103/70 01/24/21 13:26 Pulse Ox Intake & Output 01/23/21 01/24/21 01/24/21 18:59 06:59 18:59 Weight 98.021 kg - Exam Abdomen: Soft, nontender, nondistended Assessment/Plan (1) Morbid obesity with BMI of 50.0-59.9, adult Narrative/Plan: Overall patient doing fairly well. Continue encouraging increased protein. Offered dietary evaluation. Patient declines. Monitor mild heartburn symptoms and mild nausea. Recheck 3 months. Plan: Date: 01/24/21 Initial Weight: 136.333 kg Initial BMI: 53.2 Current Weight: 98.021 kg Current BMI: 38.2 Type of Surgery: Total Volume in Band: Previous Volume: Volume Removed: Volume Added: Band Size:
== END | disposition home or self-care (01) ==
LOC: BARWHC3 12:59
PROVIDERS: ATTEND Surgery
DX: E66.01 Morbid (severe) obesity due to excess calories (principal); Z68.43 Body mass index [BMI] 50.0-59.9, adult
CPT/HCPCS: 99211

== ENCOUNTER 2021-02-17 18:46 | Emergency (ER) | payer OTHER ==
[2021-02-17 19:01] VITALS: TEMP 98.5
--- NOTE | 2021-02-17 19:48 | XR ---
EXAMINATION TYPE: XR chest 2V DATE OF EXAM: 02/17/2021 COMPARISON: 06/16/2019 HISTORY: Difficulty breathing TECHNIQUE: 2 views FINDINGS: Heart and mediastinum are normal. Lungs are clear. Diaphragm is normal. Bony thorax appears normal. IMPRESSION: Normal chest. No change.
[2021-02-17 20:05] LABS: Basophils % (A) 0 %; Eosinophils % (A) 0 %; HCT 34.9 % (34.0-46.0); HGB 12.1 gm/dL (11.4-16.0); Lymphocytes # (A) 1.6 k/uL (1.0-4.8); Lymphocytes % (A) 22 %; MCH 28.7 pg (25.0-35.0); MCHC 34.7 g/dL (31.0-37.0); MCV 82.7 fL (80.0-100.0); Mean Platelet Volume 8.2; Monocytes # (A) 0.4 k/uL (0-1.0); Monocytes % (A) 6 %; Neutrophils # (A) 4.9 k/uL (1.3-7.7); Neutrophils % (A) 70 %; Platelet Count 196 k/uL (150-450); RBC 4.21 m/uL (3.80-5.40); RDW 14.8 % (11.5-15.5)
[2021-02-17 20:14] LABS: ALT 10 U/L (4-34); AST 17 U/L (14-36); African American GFR (CKD) >90 (>60 ml/min/1.73 sqM); Albumin 3.6 g/dL (3.5-5.0); Alkaline Phosphatase 44 U/L (38-126); Anion Gap 8 mmol/L; Blood Urea Nitrogen 10 mg/dL (7-17); Calcium 8.9 mg/dL (8.4-10.2); Carbon Dioxide 24 mmol/L (22-30); Chloride 104 mmol/L (98-107); Glucose 99 mg/dL (74-99); Non-African American GFR(CKD) >90 (>60 ml/min/1.73 sqM); Potassium 3.5 mmol/L (3.5-5.1); Sodium 136 mmol/L (137-145); Total Bilirubin 0.3 mg/dL (0.2-1.3); Total Protein 6.3 g/dL (6.3-8.2)
--- NOTE | 2021-02-17 20:47 | ED ---
General Adult HPI - General Chief complaint: Shortness of Breath Stated complaint: pain when breathing deeply Time Seen by Provider: 02/17/21 19:20 Source: patient, RN notes reviewed Mode of arrival: ambulatory Limitations: no limitations - History of Present Illness Initial comments: Patient is a 25 she'll female that presents to emergency room complaining of increased shortness of breath over the past 2 weeks. She notes when she takes a deep breath she gets a sharp pain in her right upper back. She notes this is the only tenderness pain happens. She denied any other issues or symptoms at this time. She notes that she is . She was otherwise a well-appearing 25-year-old female in no apparent distress or pain. She denied any chest pain headache nausea vomiting diarrhea constipation fever fatigue chills. - Related Data Home Medications Medication Instructions Recorded Confirmed Citalopram Hydrobromide 20 mg PO DAILY 07/15/18 01/24/21 [Citalopram HBr] lamoTRIgine 200 mg PO BID 12/14/19 01/24/21 Folic Acid 1 mg PO HS 09/06/20 01/24/21 Aspirin 81 mg PO DAILY 10/28/20 01/24/21 Aspirin 81 mg PO DAILY 11/02/20 01/24/21 Pnv,Calcium 72/Iron/Folic Acid 1 tab PO DAILY 11/02/20 01/24/21 [ Plus Tablet] Allergies Allergy/AdvReac Type Severity Reaction Status Date / Time No Known Allergies Allergy Verified 02/17/21 19:01 Review of Systems ROS Statement: Those systems with pertinent positive or pertinent negative responses have been documented in the HPI. ROS Other: All systems not noted in ROS Statement are negative. Past Medical History Past Medical History: Asthma, Seizure Disorder Additional Past Medical History / Comment(s): PCOS, sciatica. 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 Absent: scleral icterus, conjunctival injection, periorbital swelling Neck exam: Present: normal inspection Respiratory exam: Present: normal lung sounds bilaterally. Absent: respiratory distress, wheezes, rales, rhonchi, stridor Cardiovascular Exam: Present: regular rate, normal rhythm, normal heart sounds. Absent: systolic murmur, diastolic murmur, rubs, gallop, clicks Extremities exam: Present: normal inspection, full ROM, normal capillary refill. Absent: tenderness, pedal edema, joint swelling, calf tenderness Neurological exam: Present: alert, oriented X3 Psychiatric exam: Present: normal affect, normal mood Skin exam: Present: warm, dry, intact, normal color. Absent: rash Course Vital Signs 02/17/21 18:58 Temperature 98.5 F Pulse Rate 80 Respiratory 16 Rate Blood Pressure 126/84 O2 Sat by Pulse 100 Oximetry Medical Decision Making - Medical Decision Making 25-year-old female with pain on deep inspiration for the past 2 weeks. Basic labs, chest x-ray, Covid test ordered. Covid test negative. Labs unremarkable. Chest x-ray negative for any acute process. Patient most likely has a mild case of pleuritis. Vital signs are stable, patient is satting at 100% on room air Case discussed with Dr. Cavazos, patient can discharge home. - Lab Data Result diagrams: 02/17/21 20:07 02/17/21 20:07 Lab Results 02/17/21 02/17/21 02/17/21 Range/Units 20:07 20:07 20:07 WBC 7.0 (3.8-10.6) k/uL RBC 4.21 (3.80-5.40) m/uL Hgb 12.1 (11.4-16.0) gm/dL Hct 34.9 (34.0-46.0) % MCV 82.7 (80.0-100.0) fL MCH 28.7 (25.0-35.0) pg MCHC 34.7 (31.0-37.0) g/dL RDW 14.8 (11.5-15.5) % Plt Count 196 (150-450) k/uL MPV 8.2 Neutrophils % 70 % Lymphocytes % 22 % Monocytes % 6 % Eosinophils % 0 % Basophils % 0 % Neutrophils # 4.9 (1.3-7.7) k/uL Lymphocytes # 1.6 (1.0-4.8) k/uL Monocytes # 0.4 (0-1.0) k/uL Eosinophils # 0.0 (0-0.7) k/uL Basophils # 0.0 (0-0.2) k/uL Sodium 136 L (137-145) mmol/L Potassium 3.5 (3.5-5.1) mmol/L Chloride 104 (98-107) mmol/L Carbon Dioxide 24 (22-30) mmol/L Anion Gap 8 mmol/L BUN 10 (7-17) mg/dL Creatinine 0.48 L (0.52-1.04) mg/dL Est GFR (CKD-EPI)AfAm >90 (>60 ml/min/1.73 sqM) Est GFR (CKD-EPI)NonAf >90 (>60 ml/min/1.73 sqM) Glucose 99 (74-99) mg/dL Calcium 8.9 (8.4-10.2) mg/dL Total Bilirubin 0.3 (0.2-1.3) mg/dL AST 17 (14-36) U/L ALT 10 (4-34) U/L Alkaline Phosphatase 44 (38-126) U/L Total Protein 6.3 (6.3-8.2) g/dL Albumin 3.6 (3.5-5.0) g/dL Coronavirus (PCR) Not Detected (Not Detectd) - Radiology Data Radiology results: report reviewed, image reviewed Chest x-ray: Normal chest. No change. Disposition Clinical Impression: Costochondritis, Shortness of breath Disposition: HOME SELF-CARE Condition: Stable Instructions (If sedation given, give patient instructions): Shortness of Breath (ED) Additional Instructions: Please return to the Emergency Department if symptoms worsen or any other concerns. Follow-up with primary care 1-2 days. Take Tylenol Motrin as needed for pain. Is patient prescribed a controlled substance at d/c from ED?: No Referrals: Sima Stanton MD [Primary Care Provider] - 1-2 days Time of Disposition: 20:46
[2021-02-17 21:06] VITALS: BP 122/69; PULSE 84; RESP 18
== END 2021-02-17 21:06 | disposition home or self-care (01) ==
LOC: EC 18:46
DX: M94.0 Chondrocostal junction syndrome [Tietze] (principal); R06.02 Shortness of breath; G40.909 Epilepsy, unspecified, not intractable, without status epilepticus; J45.909 Unspecified asthma, uncomplicated; Z87.891 Personal history of nicotine dependence; Z79.899 Other long term (current) drug therapy; Z20.822 Contact with and (suspected) exposure to COVID-19
CPT/HCPCS: 36415; 71046; 80053; 85025; 87635; 99285

== ENCOUNTER → 2021-05-19 | Outpatient (CLI) | payer OTHER | END | disposition home or self-care (01) | LOC: LABWHC1 16:23 | PROVIDERS: ATTEND Nurse Practitioner Family | DX: Z34.82 Encounter for supervision of other normal pregnancy, second trimester (principal); G40.909 Epilepsy, unspecified, not intractable, without status epilepticus | CPT/HCPCS: 36415; 80175 ==

== ENCOUNTER 2021-06-07 15:55 | Outpatient (CLI) | payer OTHER ==
--- NOTE | 2021-06-07 18:30 | US ---
EXAMINATION TYPE: US OB >= 14 wk fetus DATE OF EXAM: 06/07/2021 COMPARISON: None CLINICAL HISTORY: pt fell TECHNIQUE: Transabdominal (TA) GESTATIONAL AGE / DATING Physician Established: (25 weeks/4 days) EDC: 09/16/2021 Dates by Current Scan: (24 weeks/4 days) EDC: 09/23/2021 Beta HCG (if available): Not available at this time SURVEY IUP: Single PLACENTA: Anterior PREVIA: No Previa THOM: 13.4 cm Normal CERVICAL LENGTH (transabdominal: norm > 3.0cm): 3.1 cm BIOMETRY PRESENTATION: Breech BPD: 5.7 cm 23 weeks / 2 days HC: 22.4 cm 24 weeks / 3 days AC: 19.5 cm 24 weeks / 1 days FL: 4.9 cm 26 weeks / 4 days ESTIMATED WEIGHT IN GRAMS: 762.3 grams ESTIMATED WEIGHT IN LBS/OZ: 1 lbs. 11 oz. WEIGHT PERCENTAGE BASED ON ESTABLISHED DATES: 19.3% HC/AC: 1.2 Normal FL/AC: 25.1 Abnormal HEART RATE: 148 bpm RHYTHM: Normal Single live IUP measuring 24 weeks 4 days on todays scan. IMPRESSION: Amniotic fluid adequate. No complicating process seen.
[2021-06-07 18:40] VITALS: BP 120/72; PULSE 88; RESP 17; TEMP 98.1
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
== END 2021-06-07 18:30 | disposition home or self-care (01) ==
LOC: FBPOP 15:55
PROVIDERS: ATTEND Obstetrics & Gynecology Obstetrics
DX: O9A.212 Injury, poisoning and certain other consequences of external causes complicating pregnancy, second trimester (principal); G89.11 Acute pain due to trauma; Z3A.25 25 weeks gestation of pregnancy; Z87.891 Personal history of nicotine dependence; W19.XXXA Unspecified fall, initial encounter
CPT/HCPCS: 76805; G0463; 99213

== ENCOUNTER → 2021-07-04 | Outpatient (CLI) | payer OTHER ==
[2021-07-04 14:09] VITALS: BP 114/77; PULSE 87; RESP 16; TEMP 98; BMI 39.3
--- NOTE | 2021-07-04 14:24 | P.BASOAP ---
Subjective Progress Note Date: 07/04/21 Principal diagnosis: morbid obesity a 25-year-old female known to our service. Patient has had some mild nausea and rare episodes of vomiting. No heartburn. Patient's is going well. She is 29 weeks at this time. She has gained 6 pounds since her last visit. She does have gestational diabetes. She is following up with high density press operator in [place] Objective - Vital Signs Vital signs: Vital Signs Temp 98 F 07/04/21 14:04 Pulse 87 07/04/21 14:04 Resp 16 07/04/21 14:04 BP 114/77 07/04/21 14:04 Pulse Ox Intake & Output 07/03/21 07/04/21 07/04/21 18:59 06:59 18:59 Weight 100.698 kg - Exam Abdomen: Soft, nontender, nondistended Assessment/Plan (1) Morbid obesity Narrative/Plan: patient overall doing fairly well. Continue follow-up with high risk . Continue antiacids as needed. Follow-up 6 months. Plan: Date: 07/04/21 Initial Weight: 136.333 kg Initial BMI: 53.2 Current Weight: 100.698 kg Current BMI: 39.3 Type of Surgery: Total Volume in Band: Previous Volume: Volume Removed: Volume Added: Band Size:
== END ==
LOC: BARWHC3 13:44
PROVIDERS: ATTEND Surgery
DX: O99.213 Obesity complicating pregnancy, third trimester (principal); O24.419 Gestational diabetes mellitus in pregnancy, unspecified control; E66.01 Morbid (severe) obesity due to excess calories; Z3A.29 29 weeks gestation of pregnancy; Z87.891 Personal history of nicotine dependence
CPT/HCPCS: 99211

== ENCOUNTER → 2021-12-12 | Outpatient (CLI) | payer OTHER ==
[2021-12-12 14:20] VITALS: BP 139/90; PULSE 86; RESP 16; TEMP 98.3; BMI 39.1
--- NOTE | 2021-12-12 14:29 | P.BASOAP ---
Subjective Progress Note Date: 12/12/21 Principal diagnosis: Morbid obesity Patient returns after recent . She had an emergency in September. Baby is doing well. No nausea or vomiting. No GERD symptoms. Patient says she has had a significant increase in hunger and thinks it may be related to breast feeding. She says she is almost able to eat as much as she did prior to her sleeve gastrectomy. She has 1 pound higher than she was in July. She would like to see a dietitian today. Not eating breakfast. He does not take antiacids. Objective - Vital Signs Vital signs: Vital Signs Temp 98.3 F 12/12/21 14:17 Pulse 86 12/12/21 14:17 Resp 16 12/12/21 14:17 BP 139/90 12/12/21 14:17 Pulse Ox FiO2 Intake & Output 12/11/21 12/12/21 12/12/21 18:59 06:59 18:59 Weight 100.244 kg - Exam Abdomen: Soft, nontender, nondistended Assessment/Plan (1) Morbid obesity Narrative/Plan: Patient doing fairly well at this time. Unfortunately her weight has gone up some recently. Her restriction is decreased. Recommend starting daily calorie count. Recommend morning protein shakes. Will be seen by dietary today. Follow-up 2-3 months. Plan: Date: 12/12/21 Initial Weight: 136.333 kg Initial BMI: 53.2 Current Weight: 100.244 kg Current BMI: 39.1 Type of Surgery: Vertical Sleeve Gastrectomy Total Volume in Band: Previous Volume: Volume Removed: Volume Added: Band Size:
== END ==
LOC: BARWHC3 14:10
PROVIDERS: ATTEND Surgery
DX: E66.01 Morbid (severe) obesity due to excess calories (principal); Z68.39 Body mass index [BMI] 39.0-39.9, adult; Z98.84 Bariatric surgery status
CPT/HCPCS: 97802; G0463; 99211

== ENCOUNTER 2022-08-26 14:56 | Emergency (ER) | payer OTHER ==
[2022-08-26 15:13] VITALS: RESP 20; TEMP 97.9
--- NOTE | 2022-08-26 15:53 | ED ---
Abdominal Pain HPI - General Source: patient, RN notes reviewed, old records reviewed Mode of arrival: ambulatory Limitations: no limitations - History of Present Illness MD Complaint: abdominal pain -: month(s) (6) Location: epigastric Radiation: none Severity scale (1-10): 0 Quality: fullness Consistency: now resolved Associated Symptoms: chills - Related Data Patient : Yes (15) <Ziggy Estrella - Last Filed: 08/26/22 17:32> <Jose L Sommers - Last Filed: 08/26/22 19:05> - General Chief Complaint: Abdominal Pain Stated Complaint: 14 weeks preg/ Abd pain Time Seen by Provider: 08/26/22 15:40 - History of Present Illness Initial Comments: This is a 26-year-old female that presents to the emergency room with complaints of epigastric abdominal pain started at 12:30 today after drinking crystallite. She states that she developed some nausea with chills that lasted about 3 hours but is now resolved. She states that she has seen Dr. Gao for this similar type of pain in the past and has been ongoing for 6 months. She was given a prescription for an ultrasound of her gallbladder by Dr Gao but states that she lost that prescription and is here today to get an ultrasound. She does have a history of seizure disorder takes Lamictal. Asthma, polycystic ovarian syndrome, anxiety takes Celexa. Currently taking vitamins and folate acid. She is 15 weeks and a patient of Dr. Albarado. She is a with one miscarriage due to subchorionic hemorrhage at 16 weeks. Patient denies vaginal bleeding or discharge. No pelvic pain. (Ziggy Estrella) - Related Data Home Medications Medication Instructions Recorded Confirmed Citalopram Hydrobromide 20 mg PO DAILY 07/15/18 12/13/21 [Citalopram HBr] lamoTRIgine 200 mg PO BID 12/14/19 12/13/21 Folic Acid 3 mg PO HS 09/06/20 12/13/21 Vit No.180/Iron/Folic 1 tab PO DAILY 11/02/20 12/13/21 [ Plus Tablet] Previous Rx's Medication Instructions Recorded Cephalexin [Keflex] 500 mg PO QID 7 Days #28 cap 08/26/22 Allergies Allergy/AdvReac Type Severity Reaction Status Date / Time No Known Allergies Allergy Verified 08/26/22 15:13 Review of Systems ROS Other: All systems not noted in ROS Statement are negative. <Ziggy Estrella - Last Filed: 08/26/22 17:32> ROS Other: All systems not noted in ROS Statement are negative. <Jose L Sommers - Last Filed: 08/26/22 19:05> ROS Statement: Those systems with pertinent positive or pertinent negative responses have been documented in the HPI. Past Medical History Past Medical History: Asthma, Seizure Disorder Additional Past Medical History / Comment(s): PCOS, sciatica. 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, D&C 11/2020 Past Anesthesia/Blood Transfusion Reactions: No Reported Reaction Additional Past Anesthesia/Blood Transfusion Reaction / Comment(s): NO PRIOR ANESTHESIA HX Past Psychological History: Anxiety, Depression Smoking Status: Never smoker Past Alcohol Use History: None Reported Past Drug Use History: None Reported - Past Family History Mother Family Medical History: Diabetes Mellitus, Thyroid Disorder Additional Family Medical History / Comment(s): Liver failure Father Family Medical History: Hypertension <Ziggy Estrella - Last Filed: 08/26/22 17:32> General Exam Limitations: no limitations General appearance: alert, in no apparent distress Head exam: Present: atraumatic, normocephalic Eye exam: Absent: scleral icterus, conjunctival injection, periorbital swelling Neck exam: Present: full ROM. Absent: meningismus Respiratory exam: Absent: respiratory distress, accessory muscle use Cardiovascular Exam: Present: regular rate GI/Abdominal exam: Present: soft, tenderness (epigastric). Absent: distended, guarding, rebound, rigid Extremities exam: Present: full ROM, normal capillary refill. Absent: tenderness, pedal edema Neurological exam: Present: alert, oriented X3 Psychiatric exam: Present: normal affect, normal mood Skin exam: Present: warm, dry, normal color. Absent: cyanosis, diaphoretic, petechiae, pallor <Ziggy Estrella - Last Filed: 08/26/22 17:32> Course Vital Signs 08/26/22 08/26/22 08/26/22 15:09 15:24 18:46 Temperature 97.9 F 97.9 F Pulse Rate 86 104 H 77 Respiratory 20 Rate Blood Pressure 118/78 112/67 101/65 O2 Sat by Pulse 96 100 99 Oximetry Medical Decision Making <Ziggy Estrella - Last Filed: 08/26/22 17:32> - Lab Data Result diagrams: 08/26/22 18:08 08/26/22 18:08 <Jose L Sommers - Last Filed: 08/26/22 19:05> - Medical Decision Making Urinalysis cloudy with white blood cells, bacteria and large leukocyte esterase. Patient is therefore will be treated with Keflex. Ultrasound of the gallbladder shows numerous gallstones with no dilated ducts. Common bile duct not seen. There is evidence of a mild right-sided hydronephrosis. This could be a change compared to old computed tomography scan of 11/20/2019. Ultrasound shows amniotic fluid index is 12 cm with no complicating process seen placenta is posterior. Gestational age 14 weeks and 6 days. Heart rate 149. Patient has no lower abdominal pain. No vaginal discharge or vaginal bleeding. No concerns with the . Pain is epigastric and worse with palpation. (Ziggy Estrella) Was patient admitted / discharged? Hospital course, mention meds given and rou te, prescriptions, significant lab abnormalities, going to OR and other pertinent info. @ -Patient was endorsed to me by ED JOSEF Estrella (secondary to end of her shift) with the patient's CBC CMP and lipase still pending. These labs were reviewed myself, and are fairly unremarkable other than a mildly elevated AST of 67. Patient's ultrasound findings are as above. Patient's abdomen is currently soft and nontender on exam. I discussed the patient's findings with her. I have e xplained that although biliary colic may be a possible etiology of her pain/symptoms, I suspect that her pain/symptoms are more likely to be from a gastric etiology, such as gastritis or GERD. I do not suspect an emergent medical or surgical condition at this time. JOSEF Estrella has already ordered a p rescription for a course of Keflex to treat the patient's UTI. Patient was instructed to follow up closely with her PLANER SETTER. Patient was counseled about abdominal pain/gallstones in and UTIs, and she was clearly explained return and follow-up instructions. Will discharge patient home at this time. Patient feels comfortable with this plan. Undiagnosed new problem with uncertain prognosis? @ -No Drug Therapy requiring intensive monitoring for toxicity (Heparin, Nitro, Insulin, Cardizem)? @ -No Were any procedures done? @ -No Diagnosis/symptom? @ -Abdominal pain in Acute, or Chronic, or Acute on Chronic? @ -Acute Uncomplicated (without systemic symptoms) or Complicated (systemic symptoms)? @ -default Side effects of treatment? @ -No Exacerbation, Progression, or Severe Exacerbation? @ -No Poses a threat to life or bodily function? How? (Chest pain, [place], NM, pneumonia, PE, COPD, DKA, ARF, appy, cholecystitis, CVA, Diverticulitis, Homicidal, Suic idal, threat to staff... and all critical care pts) @ -No Diagnosis/symptom? @ -Gallstones Acute, or Chronic, or Acute on Chronic? @ -default Uncomplicated (without systemic symptoms) or Complicated (systemic symptoms)? @ -Uncomplicated Side effects of treatment? @ -none Exacerbation, Progression, or Severe Exacerbation @ -no Poses a threat to life or bodily function? @ -no Diagnosis/symptom? @ -UTI Acute, or Chronic, or Acute on Chronic? @ -acute Uncomplicated (without systemic symptoms) or Complicated (systemic symptoms)? @ -uncomplicated Side effects of treatment? @ -none Exacerbation, Progression, or Severe Exacerbation] @ -no Poses a threat to life or bodily function? @ -no (MulushivaniroscoemariaJose L) - Lab Data Lab Results 08/26/22 08/26/22 08/26/22 Range/Units 15:21 18:08 18:08 WBC 5.4 (3.8-10.6) k/uL RBC 4.19 (3.80-5.40) m/uL Hgb 12.2 (11.4-16.0) gm/dL Hct 34.4 (34.0-46.0) % MCV 82.0 (80.0-100.0) fL MCH 29.2 (25.0-35.0) pg MCHC 35.6 (31.0-37.0) g/dL RDW 14.5 (11.5-15.5) % Plt Count 177 (150-450) k/uL MPV 8.4 Neutrophils % 74 % Lymphocytes % 19 % Monocytes % 6 % Eosinophils % 0 % Basophils % 0 % Neutrophils # 4.0 (1.3-7.7) k/uL Lymphocytes # 1.0 (1.0-4.8) k/uL Monocytes # 0.3 (0-1.0) k/uL Eosinophils # 0.0 (0-0.7) k/uL Basophils # 0.0 (0-0.2) k/uL Hyperchromasia Slight Sodium 135 L (137-145) mmol/L Potassium 3.6 (3.5-5.1) mmol/L Chloride 107 (98-107) mmol/L Carbon Dioxide 23 (22-30) mmol/L Anion Gap 5 mmol/L BUN 6 L (7-17) mg/dL Creatinine 0.33 L (0.52-1.04) mg/dL Est GFR (CKD-EPI)AfAm >90 (>60 ml/min/1.73 sqM) Est GFR (CKD-EPI)NonAf >90 (>60 ml/min/1.73 sqM) Glucose 77 (74-99) mg/dL Calcium 8.6 (8.4-10.2) mg/dL Total Bilirubin 0.4 (0.2-1.3) mg/dL AST 67 H (14-36) U/L ALT 30 (4-34) U/L Alkaline Phosphatase 41 (38-126) U/L Total Protein 6.1 L (6.3-8.2) g/dL Albumin 3.5 (3.5-5.0) g/dL Lipase 104 (23-300) U/L Urine Color Yellow Urine Appearance Cloudy H (Clear) Urine pH 6.0 (5.0-8.0) Ur Specific [place] 1.032 (1.001-1.035) Urine Protein 1+ H (Negative) Urine Glucose (UA) Negative (Negative) Urine Ketones 4+ H (Negative) Urine Blood Negative (Negative) Urine Nitrite Negative (Negative) Urine Bilirubin Negative (Negative) Urine Urobilinogen 8.0 (<2.0) mg/dL Ur Leukocyte Esterase Large H (Negative) Urine RBC 2 (0-5) /hpf Urine WBC 7 H (0-5) /hpf Ur Squamous Epith Cells 26 H (0-4) /hpf Calcium Oxalate Crystal Few H (None) /hpf Urine Bacteria Rare H (None) /hpf Urine Mucus Many H (None) /hpf Disposition <Ziggy Estrella - Last Filed: 08/26/22 17:32> Is patient prescribed a controlled substance at d/c from ED?: No Time of Disposition: 19:05 <Jose L Sommers - Last Filed: 08/26/22 19:05> Clinical Impression: UTI (urinary tract infection), Abdominal pain, Gallstones Disposition: HOME SELF-CARE Instructions (If sedation given, give patient instructions): Abdominal Pain in (ED), Gallstones (ED), Urinary Tract Infection in Women (ED) Additional Instructions: Return to the ER immediately should you develop new or worsening pain, a fever, persistent vomiting, feeling dizzy or faint, shortness of breath, vaginal bleeding, or new or worsening symptoms. Follow up closely with your PLANER SETTER doctor. Prescriptions: Cephalexin [Keflex] 500 mg PO QID 7 Days #28 cap Referrals: Sima Stanton MD [Primary Care Provider] - 1-2 days Nena Jernigan DO [Doctor of Osteopathic Medicine] - 1-2 days
[2022-08-26 16:07] LABS: Appearance,Urine Cloudy (Clear); Bacteria,Urine Rare /hpf; Bilirubin,Urine Negative (Negative); Blood,Urine Negative (Negative); Calcium Oxalate Crystals,Urine Few /hpf; Color,Urine Yellow; Glucose,Urine (UA) Negative (Negative); Ketones,Urine 4+ (Negative); Leukocyte Esterase,Urine Large (Negative); Mucus,Urine Many /hpf; Nitrite,Urine Negative (Negative); Protein,Urine 1+ (Negative); RBC,Urine 2 /hpf (0-5); Specific Gravity,Urine 1.032 (1.001-1.035); Squamous Epithelial Cell,Urine 26 /hpf (0-4); WBC,Urine 7 /hpf (0-5)
--- NOTE | 2022-08-26 17:26 | US ---
EXAMINATION TYPE: US gallbladder DATE OF EXAM: 08/26/2022 COMPARISON: NONE CLINICAL HISTORY: Rule out cholecystitis. RUQ pain x 3 hours TECHNIQUE: Multiple sonographic images of the right upper quadrant are obtained. FINDINGS: EXAM MEASUREMENTS: Liver Length: 14.5 cm Gallbladder Wall: 0.27 cm CBD: Not well visualized Right Kidney: 12.9 x 6.6 x 6.4 cm PULMONARY NURSE PRACTITIONER NOTES: Pancreas: Appears wnl, limited due to bowel gas Liver: wnl Gallbladder: Multiple gallstones visualized Evidence for sonographic Jones's sign: No CBD: Not well visualized Right Kidney: Dilated renal pelvis, possible mild hydro IMPRESSION: There are numerous gallstones. No dilated ducts. Common bile duct not seen. There is evidence of mild right-sided hydronephrosis and this could be a change compared to old CT scan of 11/20/2019.
[2022-08-26] MEDS ORDERED: CEPHALEXIN 500 MG CAP PO STA (17:27)
--- NOTE | 2022-08-26 17:29 | US ---
EXAMINATION TYPE: US OB limited DATE OF EXAM: 08/26/2022 COMPARISON: NONE CLINICAL HISTORY: epigastric pain. epigastric pain. Hx of subchorionic hemorrhage last pg. EXAM PERFORMED: Transabdominal (TA) GESTATIONAL AGE / DATING Physician Established: (14 weeks/6 days) EDC: 02/18/23 No growth performed on today?s study per ordering physician SURVEY PLACENTA: Posterior PREVIA: No Previa THOM: 12.0 cm Normal Ultrasound evidence of premature rupture of membranes? No CERVICAL LENGTH (transabdominal: norm > 3.0cm): 3.3 cm Ultrasound evidence of cervical incompetence? No (Tech?if abnormal transabdominally?image transvaginally to substantiate abnormality.) PRESENTATION: Variable LIE: Transverse with head maternal R HEART RATE: 149 bpm RHYTHM: Normal No obvious abnormality visualized IMPRESSION: The amniotic fluid index is 12 cm. No complicating process seen. Placenta is posterior
[2022-08-26 18:31] LABS: Basophils % (A) 0 %; Eosinophils % (A) 0 %; HCT 34.4 % (34.0-46.0); HGB 12.2 gm/dL (11.4-16.0); Hyperchromasia Slight; Lymphocytes % (A) 19 %; MCH 29.2 pg (25.0-35.0); MCHC 35.6 g/dL (31.0-37.0); Mean Platelet Volume 8.4; Monocytes # (A) 0.3 k/uL (0-1.0); Monocytes % (A) 6 %; Neutrophils % (A) 74 %; Platelet Count 177 k/uL (150-450); RBC 4.19 m/uL (3.80-5.40); RDW 14.5 % (11.5-15.5); WBC 5.4 k/uL (3.8-10.6)
[2022-08-26 18:46] LABS: ALT 30 U/L (4-34); AST 67 U/L (14-36); African American GFR (CKD) >90 (>60 ml/min/1.73 sqM); Albumin 3.5 g/dL (3.5-5.0); Alkaline Phosphatase 41 U/L (38-126); Anion Gap 5 mmol/L; Blood Urea Nitrogen 6 mg/dL (7-17); Calcium 8.6 mg/dL (8.4-10.2); Carbon Dioxide 23 mmol/L (22-30); Chloride 107 mmol/L (98-107); Glucose 77 mg/dL (74-99); Lipase 104 U/L (23-300); Non-African American GFR(CKD) >90 (>60 ml/min/1.73 sqM); Potassium 3.6 mmol/L (3.5-5.1); Sodium 135 mmol/L (137-145); Total Bilirubin 0.4 mg/dL (0.2-1.3); Total Protein 6.1 g/dL (6.3-8.2)
[2022-08-26 18:47] VITALS: BP 101/65; PULSE 77
== END 2022-08-26 19:46 | disposition home or self-care (01) ==
LOC: EC 14:56
DX: O23.42 Unspecified infection of urinary tract in pregnancy, second trimester (principal); O26.612 Liver and biliary tract disorders in pregnancy, second trimester; K80.20 Calculus of gallbladder without cholecystitis without obstruction; O99.512 Diseases of the respiratory system complicating pregnancy, second trimester; J45.909 Unspecified asthma, uncomplicated; O99.342 Other mental disorders complicating pregnancy, second trimester; F41.9 Anxiety disorder, unspecified; F32.A Depression, unspecified; Z79.899 Other long term (current) drug therapy; Z3A.14 14 weeks gestation of pregnancy
CPT/HCPCS: 36415; 76705; 76815; 80053; 81001; 83690; 85025; 99284

== ENCOUNTER 2022-10-31 18:48 | Outpatient (CLI) | payer OTHER ==
[2022-10-31 19:25] VITALS: BP 119/79; PULSE 89; RESP 18; TEMP 98.1
--- NOTE | 2022-11-11 15:27 | P.MSEPDOC ---
Presenting Problems - Arrival Data Date of Arrival on Unit: 10/31/22 Time of Arrival on Unit: 18:48 Mode of Transport: Ambulatory - Complaint OB-Reason for Admission/Chief Complaint: Other Comment: vaginal discomfort, itching, white discharge Medical History - Information : 3 Para: 1 Term: 1 : 0 Abortions: Spontaneous or Elective: 0 Number of Living Children: 1 - Gestational Age Gestational Age by SETH (wks/days): 24 Weeks and 2 Days - History Complications: Other Comment: hx mycoplasma, ureaplasma, bacterial vaginosis Review of Systems - Review of Systems Constitutional: No problems Breast: No problems ENT: No problems Cardiovascular: No problems Respiratory: No problems Gastrointestinal: No problems Genitourinary: No problems Musculoskeletal: No problems Neurological: No problems Skin: No problems Vital Signs - Temperature Temperature: 98.1 F Temperature Source: Axillary - Pulse Right Pulse Oximetery Pulse Rate: 89 Pulse Assessment Method: Pulse Oximetry - Respirations Respiratory Rate: 18 Oxygen Delivery Method: Room Air O2 Sat by Pulse Oximetry: 97 - Blood Pressure Right Arm Blood Pressure: 119/79 Blood Pressure Mean: 92 Blood Pressure Source: Automatic Cuff Medical Screen Scoring - Uterine Contractions Frequency From (mins): 0 Frequency To (mins): 0 - Assessment - Baby A Baseline FHR: 140 Heart Rate - NICHD Category: Category I (Normal) Physician Notification - Physician Notified Physician Notified Date: 10/31/22 Physician Notified Time: 07:20 Physician: Alayna Lynch Order Received: Yes - Notification Comment Comment: Order to follow up at appointment tomorrow morning with Dr Jernigan Maternal Triage Index - Maternal Triage Index Presenting for scheduled procedure w/no complaint: No - Stat/Priority 1 Stat Priority 1: No - Urgent/Priority 2 Urgent Priority 2: No - Prompt/Priority 3 Prompt Priority 3: No - Non-Urgent/Priority 4 Non-Urgent Priority 4: Yes Criteria Met for Priority 4: vaginal itching and discomfort - pt concerned she may have another vaginal infection - Scheduled/Requesting Priority 5 Scheduled/Requesting Priority 5: No Disposition - Disposition OB Disposition: Discharge to home Discharge Date: 10/31/22 Discharge Time: 19:23 I agree with the RN Medical Screening Exam: Yes Case reviewed; plan agreed upon as documented in EMR&OBIX.: Yes Diagnosis: Vaginal discharge
== END 2022-10-31 19:23 | disposition home or self-care (01) ==
LOC: FBPOP 18:48
PROVIDERS: ATTEND Obstetrics & Gynecology
DX: O26.892 Other specified pregnancy related conditions, second trimester (principal); O23.592 Infection of other part of genital tract in pregnancy, second trimester; O98.312 Other infections with a predominantly sexual mode of transmission complicating pregnancy, second trimester; N89.8 Other specified noninflammatory disorders of vagina; Z3A.24 24 weeks gestation of pregnancy; Z87.891 Personal history of nicotine dependence
CPT/HCPCS: 99213

== ENCOUNTER 2023-01-26 01:01 | Emergency (ER) | payer OTHER ==
[2023-01-26 01:12] VITALS: RESP 18
[2023-01-26] MEDS ORDERED: LIDOCAINE 1% INJ 10MG/ML (20 ML MDV) SQ ONE (02:07)
[2023-01-26] MEDS ORDERED: CEPHALEXIN 500 MG CAP PO STA (02:08)
--- NOTE | 2023-01-26 02:56 | ED ---
Wound/Laceration HPI - General Chief Complaint: Wound/Laceration Stated Complaint: VAGINAL CUT, 36 WEEKS Time Seen by Provider: 01/26/23 01:20 Source: patient, family Mode of arrival: ambulatory Limitations: no limitations - History of Present Illness Initial Comments: Patient is a 27-year-old female who presents the emergency department for vaginal laceration. Patient states she was wiping after urination and saw blood. Her then noticed bleeding laceration to her vagina. Patient denies any injury she does not know how she got the laceration. She is 36 weeks . Recently got tdap vaccine. Denies abdominal pain and vaginal bleeding - Related Data Home Medications Medication Instructions Recorded Confirmed Citalopram Hydrobromide 20 mg PO DAILY 07/15/18 01/18/23 [Citalopram HBr] lamoTRIgine 200 mg PO DAILY 12/14/19 01/18/23 Folic Acid 3 mg PO HS 09/06/20 01/18/23 Vit No.180/Iron/Folic 1 tab PO DAILY 11/02/20 01/18/23 [ Plus Tablet] Previous Rx's Medication Instructions Recorded Cephalexin [Keflex] 500 mg PO Q6HR #40 cap 01/26/23 Fluconazole [Diflucan] 150 mg PO DAILY PRN #1 tab 01/26/23 Allergies Allergy/AdvReac Type Severity Reaction Status Date / Time No Known Allergies Allergy Verified 01/26/23 01:12 Review of Systems ROS Statement: Those systems with pertinent positive or pertinent negative responses have been documented in the HPI. ROS Other: All systems not noted in ROS Statement are negative. Past Medical History Past Medical History: Asthma, Seizure Disorder Additional Past Medical History / Comment(s): PCOS, sciatica. 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, D&C 11/2020 Past Anesthesia/Blood Transfusion Reactions: No Reported Reaction Additional Past Anesthesia/Blood Transfusion Reaction / Comment(s): NO PRIOR ANESTHESIA HX Past Psychological History: Anxiety, Depression Smoking Status: Never smoker Past Alcohol Use History: None Reported Past Drug Use History: None Reported - Past Family History Mother Family Medical History: Diabetes Mellitus, Thyroid Disorder Additional Family Medical History / Comment(s): Liver failure Father Family Medical History: Hypertension General Exam Limitations: no limitations General appearance: alert Eye exam: Present: normal appearance, PERRL, EOMI. Absent: scleral icterus, conjunctival injection, periorbital swelling Neck exam: Present: normal inspection. Absent: tenderness, meningismus, lymphadenopathy Respiratory exam: Present: normal lung sounds bilaterally. Absent: respiratory distress, wheezes, rales, rhonchi, stridor GI/Abdominal exam: Present: soft, normal bowel sounds. Absent: distended, tenderness, guarding, rebound, rigid Neurological exam: Present: alert Psychiatric exam: Present: normal affect, normal mood Skin exam: Present: warm, dry, intact, normal color, other (Laceration inside of right labia majora, 2 cm mild bleeding. Abrasion underneath 1 cm). Absent: rash Course Vital Signs 01/26/23 01/26/23 01:09 03:11 Temperature 98 F 98.2 F Pulse Rate 70 77 Respiratory 18 18 Rate Blood Pressure 127/87 132/76 O2 Sat by Pulse 97 99 Oximetry Procedures - Laceration Laceration #1 Indication: laceration Description: linear Depth: simple, single layer Anesthesia Technique: local infiltration Pre-repair: wound explored, irrigated extensively Type of Sutures: nylon Size of Sutures: 4-0 Number of Sutures: 2 Technique: simple, interrupted Patient Tolerated Procedure: well, no complications Medical Decision Making - Medical Decision Making Was pt. sent in by a medical professional or institution (FREDDY Patterson, MOTOR ASSEMBLY SUPERVISOR, urgent care, hospital, or halfway...) When possible be specific @ No Did you speak to anyone other than the patient for history (EMS, parent, family, police, friend...)? What history was obtained from this source @ -No Did you review nursing and triage notes (agree or disagree)? Why? @ -I reviewed and agree with nursing and triage notes Were old charts reviewed (outside hosp., previous admission, EMS record, old EKG, old radiological studies, urgent care reports/EKG's, halfway records)? Report findings @ -No old charts were reviewed Differential Diagnosis (chest pain, altered mental status, abdominal pain women, abdominal pain men, vaginal bleeding, weakness, fever, dyspnea, syncope, headache, dizziness, GI bleed, back pain, seizure, CVA, palpatations, mental health)? @ -Laceration, abrasion EKG interpreted by me (3pts min.). @ -As above X-rays interpreted by me (1pt min.). @ -None done CT interpreted by me (1pt min.). @ -None done U/S interpreted by me (1pt. min.). @ -None done What testing was considered but not performed or refused? (CT, X-rays, U/S, labs)? Why? @ -None What meds were considered but not given or refused? Why? @ -None Did you discuss the management of the patient with other professionals (professionals i.e. Dr., PA, MOTOR ASSEMBLY SUPERVISOR, lab, RT, psych nurse, social security benefits interviewer, cleaner greaser, teacher, protective services officer, caseworker intake)? Give summary @ -No Was smoking cessation discussed for >3mins.? @ -No Was critical care preformed (if so, how long)? @ -No Were there social determinants of health that impacted care today? How? (Homelessness, low income, unemployed, alcoholism, drug addiction, transportation, low edu. Level, literacy, decrease access to med. care, long term, rehab)? @ -No Was there de-escalation of care discussed even if they declined (Discuss DNR or withdrawal of care, Hospice)? DNR status @ -No What co-morbidities impacted this encounter? (DM, HTN, Smoking, COPD, CAD, Cancer, CVA, ARF, Chemo, Hep., AIDS, mental health diagnosis, sleep apnea, morbid obesity)? @ -None Was patient admitted / discharged? Hospital course, mention meds given and route, prescriptions, significant lab abnormalities, going to OR and other pertinent info. patient presenting for laceration. She has 2 cm laceration along the inside of right labia majora. It is irrigated and approximated with 2 sutures. Patient tolerated the procedure well. We discussed wound care in detail. Patient placed on Keflex prophylactically. Return parameters discussed Undiagnosed new problem with uncertain prognosis? @ -No Drug Therapy requiring intensive monitoring for toxicity (Heparin, Nitro, Insulin, Cardizem)? @ -No Were any procedures done? @ -No Diagnosis/symptom -laceration Acute, or Chronic, or Acute on Chronic? @ acute Uncomplicated (without systemic symptoms) or Complicated (systemic symptoms)? @ -uncomplicated Side effects of treatment? @ -No Exacerbation, Progression, or Severe Exacerbation? @ -No Poses a threat to life or bodily function? How? (Chest pain, [place], SD, pneumonia, PE, COPD, DKA, ARF, appy, cholecystitis, CVA, Diverticulitis, Homicidal, Suicidal, threat to staff... and all critical care pts) @ -No Dr. Rudolph is my attending Disposition Clinical Impression: Laceration Disposition: HOME SELF-CARE Condition: Good Instructions (If sedation given, give patient instructions): Care For Your Stitches (ED), Laceration (ED) Additional Instructions: Leave wound uncovered. Keep wound clean and dry. Wash with a mild soap. Take Tylenol for pain. No scrubbing or soaking. Follow-up with primary care provider in 1-2 days. Return for suture removal in 7-10 days. Report back to the emergency department if you experience new, concerning, or worsening symptoms.` Prescriptions: Fluconazole [Diflucan] 150 mg PO DAILY PRN #1 tab PRN Reason: Itching Cephalexin [Keflex] 500 mg PO Q6HR #40 cap Is patient prescribed a controlled substance at d/c from ED?: No Referrals: Sima Stanton MD [Primary Care Provider] - 1-2 days
[2023-01-26 03:15] VITALS: BP 132/76; PULSE 77; TEMP 98.2
== END 2023-01-26 03:11 | disposition home or self-care (01) ==
LOC: EC 01:01
DX: O26.893 Other specified pregnancy related conditions, third trimester (principal); S31.41XA Laceration without foreign body of vagina and vulva, initial encounter; O99.513 Diseases of the respiratory system complicating pregnancy, third trimester; O99.343 Other mental disorders complicating pregnancy, third trimester; G40.909 Epilepsy, unspecified, not intractable, without status epilepticus; F32.A Depression, unspecified; J45.909 Unspecified asthma, uncomplicated; Z79.899 Other long term (current) drug therapy; Z3A.36 36 weeks gestation of pregnancy; X58.XXXA Exposure to other specified factors, initial encounter
CPT/HCPCS: 99283; J2001

== ENCOUNTER 2023-01-29 12:00 | Inpatient (IN) | payer OTHER ==
[2023-01-29] MEDS ORDERED: miSOPROStoL 200 MCG TAB PO PRN (17:57)
[2023-01-29] MEDS ORDERED: CITRIC ACID-SODIUM CITRATE 15 ML CUP PO ONE (17:57)
[2023-01-29] MEDS ORDERED: CARBOPROST TROMETHAMINE 250 MCG/ML 1 ML AMP IM PRN (17:57)
[2023-01-29] MEDS ORDERED: OXYTOCIN 10 UNIT/ML 1 ML VIAL IM PRN (17:57)
[2023-01-29] MEDS ORDERED: METHYLERGONOVINE 0.2 MG/ML 1 ML AMP IM PRN (17:57)
[2023-01-29] MEDS ORDERED: TRANEXAMIC 1,000 MG/100ML-NACL 1,000 MG in EMPTY BAG 1 BAG IV PRN (17:57)
[2023-01-29 18:05] LABS: Glucose,Whole Blood 82 mg/dL (70-110)
[2023-01-29] MEDS: LACTATED RINGERS 1,000 ML IV SCH ×2 (18:05→18:33)
[2023-01-29 18:21] LABS: Basophils % (A) 0 %; Eosinophils # (A) 0.1 k/uL (0-0.7); Eosinophils % (A) 1 %; HCT 36.8 % (34.0-46.0); HGB 12.6 gm/dL (11.4-16.0); Lymphocytes # (A) 1.5 k/uL (1.0-4.8); Lymphocytes % (A) 24 %; MCH 29.7 pg (25.0-35.0); MCHC 34.2 g/dL (31.0-37.0); MCV 86.9 fL (80.0-100.0); Mean Platelet Volume 9.7; Monocytes # (A) 0.3 k/uL (0-1.0); Monocytes % (A) 5 %; Neutrophils # (A) 4.2 k/uL (1.3-7.7); Neutrophils % (A) 69 %; Platelet Count 175 k/uL (150-450); RBC 4.24 m/uL (3.80-5.40); RDW 13.8 % (11.5-15.5); WBC 6.1 k/uL (3.8-10.6)
[2023-01-29] MEDS ORDERED: PHENYLEPHRINE-0.9% NACL SYG 1,000 MCG/10 ML SYRINGE ONE (18:36)
[2023-01-29] MEDS ORDERED: MORPHINE SULFATE (PF) 0.3 MG/0.3 ML SYR ONE (18:36)
[2023-01-29] MEDS ORDERED: KETOROLAC 15 MG/ML 1 ML VIAL IVP PRN (19:14)
[2023-01-29] MEDS ORDERED: diphenhydrAMINE 50 MG/ML 1 ML VIAL IVP PRN ×3 (19:14→19:33)
[2023-01-29] MEDS ORDERED: ONDANSETRON 4 MG/2 ML VIAL IVP PRN ×2 (19:14→19:33)
[2023-01-29] MEDS ORDERED: NALOXONE 0.4 MG/ML 1 ML VIAL IV PRN ×2 (19:14→19:33)
[2023-01-29] MEDS ORDERED: HYDROmorphone 0.5 MG/0.5 ML SYRINGE IVP PRN (19:14)
[2023-01-29] MEDS ORDERED: diphenhydrAMINE 50 MG CAP PO PRN (19:33)
[2023-01-29] MEDS ORDERED: SIMETHICONE 80 MG CHEWABLE PO PRN (19:33)
[2023-01-29] MEDS ORDERED: METOCLOPRAMIDE 5 MG/ML 2 ML VIAL IVP PRN (19:33)
[2023-01-29] MEDS ORDERED: ZOLPIDEM 5 MG TAB PO PRN (19:33)
[2023-01-29] MEDS ORDERED: diphenhydrAMINE 25 MG CAP PO PRN (19:33)
--- NOTE | 2023-01-29 19:44 | P.OP ---
Date of Procedure: 01/29/23 Preoperative Diagnosis: IUP at 37 and one sevenths weeks, advanced cervical dilation, footling breech presentation, gestational diabetes noncompliant Postoperative Diagnosis: Same Procedure(s) Performed: Repeat section Anesthesia: spinal Surgeon: Nena Jernigan International Relations Teacher #1: Alayna Lynch Estimated Blood Loss (ml): 570 IV fluids (ml): 1,500 Urine output (ml): 100 Pathology: other (Placenta) Condition: stable Disposition: observation Indications for Procedure: 19-year-old at 37 and one sevenths weeks that presented to the office for routine visit. Patient states she had been noting occasional contraction and desired cervical check. On cervical exam she was noted to be 3/80/-2 with feet being the presenting part. Patient was counseled on need for repeat section secondary to malpresentation of the and advanced cervical dilation. Operative Findings: Normal uterus ovaries and tubes were appreciated, viable male delivered at 1900, weight of 6 lbs. 5 oz., Apgars of 9 and 9 at one and 5 minutes respectively. Description of Procedure: The patient was prepped and draped in the usual fashion after spinal anesthesia was administered by the anesthesia department. A Pfannenstiel incision was made and extended of the abdominal cavity without difficulty. The bladder peritoneum was elevated and incised and reflected distally. A 2 cm incision was made in the transverse plane of the lower uterine segment to enter the uterus at which time clear fluid was noted. The incision was extended in both directions using the bandage scissors. The sacrum was encountered within the field and delivered up and through the incision and delivered in the normal breech fashion. The nose and mouth were thoroughly suctioned. Remainder of the was delivered onto the surgical field where the cord was doubly clamped, cut, and the was passed for resuscitative measures with weight and Apgars as noted above. A segment of cord was then doubly clamped, cut, and set aside should cord gases become necessary. The placenta was delivered manually, intact, and was grossly normal with a grossly normal three-vessel cord. The uterus was exteriorized and the interior cavity of the uterus swept of any remaining placental and membranous fragments with a laparotomy sponge. The margins of the incision were grasped with an Allis and the incision closed in 2 layers. First layer was a running locking layer of 0 Vicryl from margin to margin followed by a second layer of imbricating 0 Vicryl from margin to margin. Any small points of bleeding were then made hemostatic with the Bovie. Once hemostasis was achieved, the posterior cul-de-sac was suctioned with a guard and the uterine and ovarian findings are as noted above. The uterus was replaced within the abdominal cavity and the gutters swept of any remaining blood fluid or clot. The incision was again reexamined and hemostasis was noted to be excellent. Any small point of bleeding were made hemostatic with the Bovie. Once hemostasis was achieved the parietal peritoneum was loosely reapproximated. The layer of muscles were examined and made hemostatic with the Bovie. Attention was then turned to the fascia which was closed with 2 running stitches of 0 Vicryl proceeding from the lateral margins to the midpoint. The subcutaneous tissues were irrigated, made hemostatic with the Bovie, and reapproximated with a running stitch of 30 Vicryl. The skin was reapproximated with 4-0 Vicryl. Estimated blood loss for the case was approximately 570 mL. All sponge instrument and needle counts are correct. There were no complications. The patient tolerated the procedure well and proceeded to the recovery room in stable condition. Both mother and are resting comfortably in recovery.
[2023-01-29] MEDS ORDERED: OXYTOCIN 30 UNITS/500 ML NS 30 UNIT in SALINE 1 500ML.BAG IV SCH (19:45)
[2023-01-29] MEDS ORDERED: IBUPROFEN IV 800 MG in SODIUM CHLORIDE 0.9% 250 ML IV PRN (19:45)
--- NOTE | 2023-01-29 19:50 | P.HPOB ---
History of Present Illness H&P Date: 01/29/23 Chief Complaint: IUP at 37 1/7 weeks, advanced cervical dilation, breech 27 yo at 37 1/7 weeks that presents to labor and delivery from the office after noted cervical dilation and breech presentation. She has been receiving routine care with complication of GDM, diet controlled. She DOES NOT check her BS at home. she did have an HgbA1c at her last visit of 4.8. She notes good movement, occasional contractions. [employer] history #1 SAB 16 weeks #2 primary for arrest of labor #3 current Past Medical History Past Medical History: Asthma, Seizure Disorder Additional Past Medical History / Comment(s): PCOS, sciatica. 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, D&C 11/2020 Past Anesthesia/Blood Transfusion Reactions: No Reported Reaction Additional Past Anesthesia/Blood Transfusion Reaction / Comment(s): NO PRIOR ANESTHESIA HX Past Psychological History: Anxiety, Depression Smoking Status: Never smoker Past Alcohol Use History: None Reported Past Drug Use History: None Reported - Past Family History Mother Family Medical History: Diabetes Mellitus, Thyroid Disorder Additional Family Medical History / Comment(s): Liver failure Father Family Medical History: Hypertension Medications and Allergies Home Medications Medication Instructions Recorded Confirmed Type Citalopram Hydrobromide 40 mg PO DAILY 07/15/18 01/29/23 History [Citalopram HBr] lamoTRIgine 200 mg PO DAILY 12/14/19 01/29/23 History Folic Acid 4 mg PO HS 09/06/20 01/29/23 History Vit No.180/Iron/Folic 1 tab PO DAILY 11/02/20 01/29/23 History [ Plus Tablet] Cephalexin [Keflex] 500 mg PO Q6HR #40 cap 01/26/23 01/29/23 Rx metFORMIN HCL ER [Glucophage XR] 500 mg PO DAILY 01/29/23 01/29/23 History Allergies Allergy/AdvReac Type Severity Reaction Status Date / Time No Known Allergies Allergy Verified 01/26/23 01:12 Exam Osteopathic Statement: *. No significant issues noted on an osteopathic structural exam other than those noted in the History and Physical/Consult. Intake and Output 01/29/23 01/29/23 01/29/23 06:59 14:59 22:59 Other: Weight 104.78 kg Results Result Diagrams: 01/29/23 18:00 Assessment and Plan (1) 37 weeks gestation of Current Visit: Yes Status: Acute Code(s): Z3A.37 - 37 WEEKS GESTATION OF SNOMED Code(s): 38153000 (2) Breech presentation Current Visit: Yes Status: Acute Code(s): O32.1XX0 - MATERNAL CARE FOR BREECH PRESENTATION, UNSP SNOMED Code(s): 4637674 (3) Morbid obesity with BMI of 50.0-59.9, adult Current Visit: No Status: Acute Code(s): E66.01 - MORBID (SEVERE) OBESITY DUE TO EXCESS CALORIES; Z68.43 - BODY MASS INDEX [BMI] 50.0-59.9, ADULT SNOMED Code(s): 765178936 Plan: 27-year-old at 37 and one sevenths weeks presents for repeat section secondary to breech presentation with advanced cervical dilation. Patient was seen in the office with feet at the cervical os. Patient is known gestational diabetic noncompliant with diet. We'll proceed with repeat section, surgery is reviewed questions are answered. Risks are reviewed including but not limited to infection, bleeding, damage to bladder, bowel, injury upon entry to the uterus. Patient states understanding and wishes to proceed.
[2023-01-29] MEDS: SENNOSIDES-DOCUSATE SODIUM 1 EACH TAB PO SCH (21:20)
[2023-01-29] MEDS: lamoTRIgine 100 MG TAB PO SCH (21:21)
[2023-01-30] MEDS: ACETAMINOPHEN IV (For NPO) 1,000 MG in EMPTY BAG 1 BAG IVPB SCH ×2 (00:22→14:38)
[2023-01-30] MEDS: LACTATED RINGERS 1,000 ML IV SCH ×2 (00:22→14:38)
[2023-01-30] MEDS: IBUPROFEN 600 MG TAB PO SCH ×4 (03:05→20:33)
[2023-01-30 06:48] LABS: Basophils % (A) 0 %; Eosinophils # (A) 0.1 k/uL (0-0.7); Eosinophils % (A) 1 %; HCT 34.9 % (34.0-46.0); HGB 11.9 gm/dL (11.4-16.0); Lymphocytes # (A) 1.2 k/uL (1.0-4.8); Lymphocytes % (A) 14 %; MCH 30.2 pg (25.0-35.0); MCV 88.8 fL (80.0-100.0); Mean Platelet Volume 9.8; Monocytes # (A) 0.4 k/uL (0-1.0); Monocytes % (A) 5 %; Neutrophils # (A) 6.2 k/uL (1.3-7.7); Neutrophils % (A) 78 %; Platelet Count 147 k/uL (150-450); RBC 3.93 m/uL (3.80-5.40)
--- NOTE | 2023-01-30 07:00 | P.PN ---
Progress Note - Text Progress Note Date: 01/30/23 Postoperative day 1 status post section under spinal anesthesia, and i ntrathecal morphine given for postoperative analgesia, patient doing well, there is no anesthesia related complications, Patient had no headache, vital signs stable , Assessment and plan= postop day 1 status post , doing well there is no anesthesia related complication.
--- NOTE | 2023-01-30 08:38 | P.PNOBGPC ---
Subjective - Subjective Principal diagnosis: Postop day 1, repeat section Interval history: Patient is doing well postoperatively. She is involuting and voiding without difficulty. She is tolerating regular diet without nausea or vomiting. She is noting a rash on her abdomen that is itchy in nature. It appears to be from the drape. Lochia is minimal to moderate. She is bottle feeding. Patient reports: Reports appetite normal, Reports voiding normally, Reports pain well controlled, Reports ambulating normally : doing well, bottle feeding Objective - Vital Signs Latest vital signs: Vital Signs Temp Pulse Resp BP Pulse Ox 01/30/23 04:00 98.0 F 97 16 105/66 97 01/30/23 02:00 16 01/30/23 00:14 99 01/30/23 00:00 97.6 F 71 16 118/62 01/29/23 21:58 82 16 100 01/29/23 21:49 97.6 F 82 16 116/64 100 01/29/23 21:19 68 16 121/81 100 01/29/23 20:49 75 16 112/72 100 01/29/23 20:34 60 16 110/74 99 01/29/23 20:19 75 16 120/69 98 01/29/23 20:14 66 16 99 01/29/23 20:04 70 16 109/70 99 01/29/23 20:00 78 16 105/71 99 01/29/23 19:49 96.7 F L 88 16 104/56 100 01/29/23 18:07 98.3 F 93 16 126/81 98 Intake and Output 01/29/23 01/30/23 01/30/23 22:59 06:59 14:59 Intake Total 100 600 Output Total 130 800 Balance -30 -200 Intake: Oral 100 600 Output: Urine 800 Uretheral ([place]) 800 Output, Quantitative 130 Blood Loss Other: Weight 104.78 kg - Exam Extremities: Present: normal Abdomen: Present: normal appearance, soft, other (Areas of erythema nonraised, not warm to touch) Incision: Present: normal, dry, intact Uterus: Present: normal, firm - Labs Labs: Abnormal Lab Results - Last 24 Hours (Table) 01/30/23 Range/Units 06:13 Plt Count 147 L (150-450) k/uL Assessment and Plan (1) 37 weeks gestation of Current Visit: Yes Status: Acute Code(s): Z3A.37 - 37 WEEKS GESTATION OF SNOMED Code(s): 52401332 (2) Breech presentation Current Visit: Yes Status: Acute Code(s): O32.1XX0 - MATERNAL CARE FOR BREECH PRESENTATION, UNSP SNOMED Code(s): 4690864 (3) Morbid obesity with BMI of 50.0-59.9, adult Current Visit: No Status: Acute Code(s): E66.01 - MORBID (SEVERE) OBESITY DUE TO EXCESS CALORIES; Z68.43 - BODY MASS INDEX [BMI] 50.0-59.9, ADULT SNOMED Code(s): 295234101 (4) S/P section Current Visit: No Status: Acute Code(s): Z98.891 - HISTORY OF UTERINE SCAR FROM PREVIOUS SURGERY SNOMED Code(s): 550228501 Plan: Patient is doing well postoperatively. We'll plan to continue routine postoperative care, off her Benadryl cream as needed for skin urticaria, rash.
[2023-01-30] MEDS ORDERED: lamoTRIgine 100 MG TAB PO SCH (09:00)
[2023-01-30] MEDS ORDERED: CITALOPRAM HYDROBROMIDE 20 MG TAB PO SCH ×2 (09:00→21:00)
[2023-01-30] MEDS: ACETAMINOPHEN TAB 500 MG TAB PO SCH ×4 (14:37→21:29)
[2023-01-30] MEDS: PRENATAL VIT-IRON-FOLIC ACID 1 EACH TABLET PO SCH (14:39)
[2023-01-30] MEDS: SENNOSIDES-DOCUSATE SODIUM 1 EACH TAB PO SCH ×2 (14:39→20:33)
[2023-01-30] MEDS: lamoTRIgine 100 MG TAB PO SCH (21:28)
[2023-01-31] MEDS: IBUPROFEN 600 MG TAB PO SCH ×3 (02:41→13:57)
[2023-01-31] MEDS: LACTATED RINGERS 1,000 ML IV SCH ×2 (04:36→04:37)
[2023-01-31] MEDS: ACETAMINOPHEN TAB 500 MG TAB PO SCH ×2 (05:03→11:36)
[2023-01-31] MEDS: SENNOSIDES-DOCUSATE SODIUM 1 EACH TAB PO SCH (08:54)
[2023-01-31] MEDS: PRENATAL VIT-IRON-FOLIC ACID 1 EACH TABLET PO SCH (08:55)
--- NOTE | 2023-01-31 09:03 | P.DS ---
Providers Date of admission: 01/29/23 17:51 Expected date of discharge: 01/31/23 Attending physician: Nena Jernigan Primary care physician: Stated None - Discharge Diagnosis(es) (1) 37 weeks gestation of Current Visit: Yes Status: Acute (2) Breech presentation Current Visit: Yes Status: Acute (3) Morbid obesity with BMI of 50.0-59.9, adult Current Visit: No Status: Acute (4) S/P section Current Visit: No Status: Acute Hospital Course: 27-year-old 012 status post repeat section. Patient was admitted to labor and delivery after routine visit revealed she was dilated with a footling breech presentation at 37 and one sevenths weeks. Patient had been receiving routine care which has been complicated by gestational diabetes. Patient was noncompliant with checking her blood sugars or diet. For full details on this patient please see the dictated history and physical. Patient was taken back for repeat section and was completed without difficulty. Patient delivered a viable male infant at 1900, weight of 6 lbs. 5 oz. in breech presentation. For full details on the please see the dictated operative report. Patient's postoperative course has been uneventful. On this postoperative day #2 she is a billing and voiding without difficulty. She is tolerating regular diet without nausea or vomiting. States her pain is well-controlled. She denies concerns and would like discharge home. Patient Condition at Discharge: Good Plan - Discharge Summary New Discharge Prescriptions: No Action Citalopram Hydrobromide [Citalopram HBr] 40 mg PO DAILY lamoTRIgine 200 mg PO DAILY Vit No.180/Iron/Folic [ Plus Tablet] 1 tab PO DAILY Folic Acid 4 mg PO HS Cephalexin [Keflex] 500 mg PO Q6HR #40 cap metFORMIN HCL ER [Glucophage XR] 500 mg PO DAILY Discharge Medication List Citalopram Hydrobromide [Citalopram HBr] 40 mg PO DAILY 07/15/18 [History] lamoTRIgine 200 mg PO DAILY 12/14/19 [History] Folic Acid 4 mg PO HS 09/06/20 [History] Vit No.180/Iron/Folic [ Plus Tablet] 1 tab PO DAILY 11/02/20 [History] Cephalexin [Keflex] 500 mg PO Q6HR #40 cap 01/26/23 [Rx] metFORMIN HCL ER [Glucophage XR] 500 mg PO DAILY 01/29/23 [History] Follow up Appointment(s)/Referral(s): Nena Jernigan DO [Doctor of Osteopathic Medicine] - 2 Weeks Patient Instructions/Handouts: (DC), (GEN) Activity/Diet/Wound Care/Special Instructions: Tub baths or intercourse until 6 weeks post . [id number] ibuprofen and Tylenol as needed for pain. Patient is to call the office make a routine postoperative appointment for 2 weeks. Discharge Disposition: HOME SELF-CARE
[2023-01-31 09:44] VITALS: BP 121/71; PULSE 79; RESP 20; TEMP 98.3
== END 2023-01-31 13:30 | disposition home or self-care (01) | DRG 540 ==
LOC: 4FBP 17:51
PROVIDERS: ADMIT Obstetrics & Gynecology Obstetrics; ATTEND Obstetrics & Gynecology Obstetrics
PROC: 10D00Z1 Extraction of Products of Conception, Low, Open Approach (ICD-10-PCS; principal; 2023-01-29 19:00)
DX: O34.211 Maternal care for low transverse scar from previous cesarean delivery (principal); O24.410 Gestational diabetes mellitus in pregnancy, diet controlled; O32.8XX0 Maternal care for other malpresentation of fetus, not applicable or unspecified; J45.909 Unspecified asthma, uncomplicated; G40.909 Epilepsy, unspecified, not intractable, without status epilepticus; O99.214 Obesity complicating childbirth; O99.344 Other mental disorders complicating childbirth; O99.354 Diseases of the nervous system complicating childbirth; Z37.0 Single live birth; Z3A.37 37 weeks gestation of pregnancy; Z79.84 Long term (current) use of oral hypoglycemic drugs; Z79.899 Other long term (current) drug therapy; Z91.119 Patient's noncompliance with dietary regimen due to unspecified reason; O99.52 Diseases of the respiratory system complicating childbirth; F41.9 Anxiety disorder, unspecified; F32.A Depression, unspecified; E66.01 Morbid (severe) obesity due to excess calories; Z91.199 Patient's noncompliance with other medical treatment and regimen due to unspecified reason
CPT/HCPCS: 85025; 86850; 86900; 86901; 88307

== ENCOUNTER 2023-08-24 09:52 | Emergency (ER) | payer OTHER ==
--- NOTE | 2023-08-24 11:11 | ED ---
URI HPI - General Chief Complaint: Upper Respiratory Infection Stated Complaint: COUGH Time Seen by Provider: 08/24/23 10:23 Source: patient, RN notes reviewed Mode of arrival: ambulatory Limitations: no limitations - History of Present Illness Initial Comments: This is a 27-year-old female who presents to the emergency department for coughing, congestion, and fevers. Symptoms have been ongoing for about a week at this point. She is currently taking Augmentin, which was prescribed at urgent care about a week ago for strep throat. She presents with her and 2 children, who have similar symptoms. MD Complaint: cough, nasal congestion - Related Data Home Medications Medication Instructions Recorded Confirmed Citalopram Hydrobromide 40 mg PO DAILY 07/15/18 01/29/23 [Citalopram HBr] lamoTRIgine 200 mg PO DAILY 12/14/19 01/29/23 Folic Acid 4 mg PO HS 09/06/20 01/29/23 Vit No.180/Iron/Folic 1 tab PO DAILY 11/02/20 01/29/23 [ Plus Tablet] metFORMIN HCL ER [Glucophage XR] 500 mg PO DAILY 01/29/23 01/29/23 Previous Rx's Medication Instructions Recorded Cephalexin [Keflex] 500 mg PO Q6HR #40 cap 01/26/23 Albuterol Sulfate [Albuterol 1 - 2 puff PO Q4-6H PRN #8.5 gm 08/24/23 Sulfate Hfa] Fluconazole [Diflucan] 150 mg PO ONCE #1 tab 08/24/23 Promethazine/Dextromethorphan 5 ml PO Q4-6H PRN #473 ml 08/24/23 [Promethazine-Dm Syrup] Allergies Allergy/AdvReac Type Severity Reaction Status Date / Time No Known Allergies Allergy Verified 01/26/23 01:12 Review of Systems ROS Statement: Those systems with pertinent positive or pertinent negative responses have been documented in the HPI. ROS Other: All systems not noted in ROS Statement are negative. Past Medical History Past Medical History: Asthma, Seizure Disorder Additional Past Medical History / Comment(s): PCOS, sciatica. 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, D&C 11/2020 Past Anesthesia/Blood Transfusion Reactions: No Reported Reaction Additional Past Anesthesia/Blood Transfusion Reaction / Comment(s): NO PRIOR ANESTHESIA HX Past Psychological History: Anxiety, Depression Smoking Status: Never smoker Past Alcohol Use History: None Reported Past Drug Use History: None Reported - Past Family History Mother Family Medical History: Diabetes Mellitus, Thyroid Disorder Additional Family Medical History / Comment(s): Liver failure Father Family Medical History: Hypertension General Exam Limitations: no limitations General appearance: alert, in no apparent distress Head exam: Present: atraumatic, normocephalic, normal inspection Respiratory exam: Present: normal lung sounds bilaterally. Absent: respiratory distress, wheezes, rales, rhonchi, stridor Cardiovascular Exam: Present: regular rate, normal rhythm, normal heart sounds. Absent: systolic murmur, diastolic murmur, rubs, gallop, clicks Neurological exam: Present: alert, oriented X3, CN II-XII intact Psychiatric exam: Present: normal affect, normal mood Skin exam: Present: warm, dry, intact, normal color. Absent: rash Course Vital Signs 08/24/23 08/24/23 10:16 12:46 Temperature 98.9 F 98.5 F Pulse Rate 124 H 116 H Respiratory 20 19 Rate Blood Pressure 122/6 128/85 O2 Sat by Pulse 97 97 Oximetry Medical Decision Making - Medical Decision Making This is a 27 year old female who presents to the emergency department for coughing and congestion. Was pt. sent in by a medical professional or institution? @ -No Did you speak to anyone other than the patient for history? @ -No Did you review nursing and triage notes? @ -Yes, and I agree, it is accurate with regards to the patient's symptoms. Were old charts reviewed? @ -No Differential Diagnosis? @ -Differential Cough: Influenza, Covid, RSV, croup, allergic rhinitis, GERD, pneumonia, bronchitis, COPD, viral pharyngitis, streptococcal pharyngitis, this is not meant to be an all-inclusive list. EKG interpreted by me (3pts min.)? @ -Not obtained X-rays interpreted by me (1pt min.)? @ -Chest x-ray obtained, my interpretation identifies no localized consolidations or infiltrates. CT interpreted by me (1pt min.)? @ -Not obtained U/S interpreted by me (1pt. min.)? @ -Not obtained What testing was considered but not performed? (CT, X-rays, U/S, labs)? Why? @ -None What meds were considered but not given? Why? @ -None Did you discuss the management of the patient with other professionals? @ -No Did you reconcile home meds? @ -No Was smoking cessation discussed for >3mins.? @ -No Was critical care preformed (if so, how long)? @ -No Were there social determinants of health that impacted care today? How? (Homelessness, low income, unemployed, alcoholism, drug addiction, transportation, low edu. Level, literacy, decrease access to med. care, care home, rehab)? @ -No Was there de-escalation of care discussed even if they declined? (Discuss DNR or withdrawal of care, Hospice)? @ -No What co-morbidities impacted this encounter? (DM, HTN, Smoking, COPD, CAD, Cancer, CVA, Hep., AIDS, mental health diagnosis, sleep apnea, morbid obesity)? @ -Asthma Was patient admitted / discharged? @ -Discharged. COVID, influenza, and RSV testing were negative. Chest x-ray reveals no acute process. However, patient's children and who are with her and have similar symptoms all tested positive for influenza B, and she likely has it as well. Advised ibuprofen and Tylenol as needed for any fevers. Prescription for Promethazine DM cough syrup and albuterol inhaler provided with dosing instructions reviewed. She did also request a prescription for Diflucan due to the Augmentin and any other antibiotics typically giving her a yeast infection. This was prescribed as well. Patient discharged home in stable condition. Undiagnosed new problem with uncertain prognosis? @ -None Drug Therapy requiring intensive monitoring for toxicity (Heparin, Nitro, Insulin, Cardizem)? @ -None Were any procedures done? @ -None Diagnosis/symptom? @ -Viral URI Acute, or Chronic, or Acute on Chronic? @ -Acute Uncomplicated (without systemic symptoms) or Complicated (systemic symptoms)? @ -Uncomplicated Side effects of treatment? @ -None Exacerbation, Progression, or Severe Exacerbation] @ -Not applicable Poses a threat to life or bodily function? @ -No Return precautions reviewed in depth, the patient is instructed to return to the emergency department with any new, worsening, or concerning symptoms. Patient verbalized understanding. This case was discussed in detail with the attending ED physician, Dr. Campoverde. Presentation, findings, and treatment plan discussed in detail as well. - Lab Data Lab Results 08/24/23 Range/Units 10:33 Influenza Type A (PCR) Not Detected (Not Detectd) Influenza Type B (PCR) Not Detected (Not Detectd) RSV (PCR) Not Detected (Not Detectd) SARS-CoV-2 (PCR) Not Detected (Not Detectd) - Radiology Data Radiology results: report reviewed, image reviewed Disposition Clinical Impression: Viral URI Disposition: HOME SELF-CARE Instructions (If sedation given, give patient instructions): Influenza (ED), Upper Respiratory Infection (ED) Additional Instructions: Return to the emergency department with any new, worsening, or concerning symptoms. You can have the cough medication every 4-6 hours as needed. Use the albuterol inhaler every 4-6 hours as needed for shortness of breath. Alternate with ibuprofen and Tylenol as needed for any additional fevers. Follow up with your primary care provider in 1-2 days. Prescriptions: Albuterol Sulfate [Albuterol Sulfate Hfa] 1 - 2 puff PO Q4-6H PRN #8.5 gm PRN Reason: Shortness Of Breath Fluconazole [Diflucan] 150 mg PO ONCE #1 tab Promethazine/Dextromethorphan [Promethazine-Dm Syrup] 5 ml PO Q4-6H PRN #473 ml PRN Reason: Cough Is patient prescribed a controlled substance at d/c from ED?: No Referrals: Sima Stanton MD [Primary Care Provider] - 1-2 days Time of Disposition: 11:59
--- NOTE | 2023-08-24 11:14 | XR ---
EXAMINATION TYPE: XR chest 2V DATE OF EXAM: 08/24/2023 COMPARISON: 02/17/2021 HISTORY: Cough TECHNIQUE: Frontal and lateral views of the chest are obtained. FINDINGS: There is no focal air space opacity, pleural effusion, or pneumothorax seen. The cardiac silhouette size is within normal limits. The osseous structures are intact. IMPRESSION: No acute cardiopulmonary process.
[2023-08-24] MEDS: BENZONATATE 100 MG CAP PO STA (11:16)
[2023-08-24] MEDS: DEXAMETHASONE SOD PHOSPHATE 10 MG/ML 1 ML VIAL IM STA (11:18)
[2023-08-24 12:52] VITALS: BP 128/85; PULSE 116; RESP 19; TEMP 98.5
== END 2023-08-24 12:48 | disposition home or self-care (01) ==
LOC: EC 09:52
DX: J06.9 Acute upper respiratory infection, unspecified (principal); J45.909 Unspecified asthma, uncomplicated
CPT/HCPCS: 87636; 71046; 99283; 96372; J1100

== ENCOUNTER → 2023-10-09 | Outpatient (CLI) | payer OTHER ==
--- NOTE | 2023-10-09 10:26 | US ---
EXAMINATION TYPE: US abdomen complete DATE OF EXAM: 10/09/2023 COMPARISON: NONE CLINICAL INDICATION: Female, 27 years old with history of R10.9 UNSPECIFIED ABDOMINAL PAINK80.20; kno wn GB stones, abd pain on and off, h/o weight loss surgery, large habitus TECHNIQUE: Multiple sonographic images of the abdomen are obtained. FINDINGS: EXAM MEASUREMENTS: Liver Length: 19.5 cm Gallbladder Wall: 0.2 cm CBD: 0.5 cm Spleen: 13.3 cm Right Kidney: 9.5 x 4.3 x 4.8 cm Left Kidney: 10.3 x 5.2 x 6.5 cm BAFFLE INSTALLER NOTES: habitus and bowel gas limits exam Pancreas: wnl Liver: enlarged and difficult to penetrate Gallbladder: dependant stones, no wall thickening Evidence for sonographic Jones's sign: no CBD: wnl Spleen: Top normal for size Right Kidney: wnl Left Kidney: wnl Upper IVC: wnl Abd Aorta: wnl The liver is mildly enlarged and difficult to penetrate. This appearance limits evaluation for small intrahepatic lesions. The intrahepatic portion of the IVC and proximal abdominal aorta are within nor mal limits. Layering gallstones identified. No wall thickening or surrounding fluid. Common bile duct is unremarkable. The visualized portions of the pancreas are homogenous. The spleen is top normal for size. Kidneys are symmetric and free of hydronephrosis. No renal lesions are seen. IMPRESSION: 1. Cholelithiasis without ultrasound evidence for acute cholecystitis. 2. Mild hepatomegaly.
== END | disposition home or self-care (01) ==
LOC: RADUSWWP 09:33
PROVIDERS: ATTEND Family Medicine
DX: K80.20 Calculus of gallbladder without cholecystitis without obstruction (principal); R16.0 Hepatomegaly, not elsewhere classified; Z98.890 Other specified postprocedural states
CPT/HCPCS: 76700

== ENCOUNTER 2024-07-16 15:56 | Outpatient (CLI) | payer OTHER ==
[2024-07-16 16:43] LABS: Protein/Creatinine Ratio,Urine 0.213
[2024-07-16 16:47] LABS: Appearance,Urine Cloudy (Clear); Bacteria,Urine Rare /hpf; Bilirubin,Urine Negative (Negative); Blood,Urine Negative (Negative); Calcium Oxalate Crystals,Urine Many /hpf; Color,Urine Yellow; Glucose,Urine (UA) 1+ (Negative); Ketones,Urine Negative (Negative); Leukocyte Esterase,Urine Negative (Negative); Mucus,Urine Many /hpf; Nitrite,Urine Negative (Negative); PH, Urine 6.5 (5.0-8.0); Protein,Urine 1+ (Negative); Specific Gravity,Urine 1.026 (1.001-1.035); Squamous Epithelial Cell,Urine 7 /hpf (0-4)
[2024-07-16 17:02] LABS: Basophils % (A) 0 %; Eosinophils % (A) 1 %; HCT 35.8 % (34.0-46.0); Lymphocytes # (A) 1.5 k/uL (1.0-4.8); Lymphocytes % (A) 23 %; MCH 29.1 pg (25.0-35.0); MCHC 33.6 g/dL (31.0-37.0); MCV 86.7 fL (80.0-100.0); Mean Platelet Volume 9.3; Monocytes # (A) 0.4 k/uL (0-1.0); Monocytes % (A) 6 %; Neutrophils # (A) 4.4 k/uL (1.3-7.7); Neutrophils % (A) 69 %; Platelet Count 161 k/uL (150-450); Poikilocytosis Slight; RBC 4.13 m/uL (3.80-5.40); RDW 15.1 % (11.5-15.5); WBC 6.5 k/uL (3.8-10.6)
[2024-07-16 17:10] LABS: ALT 14 U/L (4-34); AST 19 U/L (14-36); African American GFR (CKD) >90 (>60 ml/min/1.73 sqM); Blood Urea Nitrogen 6 mg/dL (7-17); LDH 189 U/L (120-246); Non-African American GFR(CKD) >90 (>60 ml/min/1.73 sqM); Uric Acid 5.1 mg/dL (3.7-7.4)
[2024-07-17 00:29] VITALS: BP 131/85; PULSE 98; RESP 16; TEMP 97
--- NOTE | 2024-09-13 00:21 | P.MSEPDOC ---
Presenting Problems - Arrival Data Date of Arrival on Unit: 07/16/24 Time of Arrival on Unit: 15:56 Mode of Transport: Ambulatory - Complaint OB-Reason for Admission/Chief Complaint: PIH Medical History - Information : 4 Para: 2 Abortions: Spontaneous or Elective: 1 - Gestational Age Gestational Age by SETH (wks/days): 35 Weeks and 6 Days - History Complications: GDM Comment: uncontrolled GDM pt does not check blood sugars at home Review of Systems - Review of Systems Constitutional: No problems Breast: No problems ENT: No problems Cardiovascular: No problems Respiratory: No problems Gastrointestinal: No problems Genitourinary: No problems Musculoskeletal: No problems Neurological: No problems Skin: No problems Vital Signs - Temperature Temperature: 97.0 F Temperature Source: Tympanic - Pulse Right Pulse Rate: 98 - Respirations Respiratory Rate: 16 - Blood Pressure Right Arm Blood Pressure: 131/85 Blood Pressure Mean: 100 Blood Pressure Source: Automatic Cuff Medical Screen Scoring - Assessment - Baby A Heart Rate - NICHD Category: Category I (Normal) NST: Reactive Physician Notification - Physician Notified Physician Notified Date: 07/16/24 Physician Notified Time: 17:30 Physician: Dr Jernigan New Order Received: Yes (Discharge order) - Notification Comment Comment: Pt educated about plan for discharge. labs to not show concern for preeclamsia. discussed how her uncontrolled gestational diabetes can cause problems for her baby. encouraged pt to follow low carb low sugar diet and check blood sugars as advised. Pt also instructed to call office tomorrow to schedule appt next week Maternal Triage Index - Maternal Triage Index Presenting for scheduled procedure w/no complaint: No - Stat/Priority 1 Stat Priority 1: No - Urgent/Priority 2 Urgent Priority 2: No - Prompt/Priority 3 Prompt Priority 3: No - Non-Urgent/Priority 4 Non-Urgent Priority 4: No - Scheduled/Requesting Priority 5 Scheduled/Requesting Priority 5: Yes Criteria Met for Priority 5: sent from office for PIH workup Disposition - Disposition OB Disposition: Discharge to home Discharge Date: 07/16/24 Discharge Time: 17:36 I agree with the RN Medical Screening Exam: Yes Case reviewed; plan agreed upon as documented in EMR&OBIX.: Yes Diagnosis: RELATED CONDITIONS, UNSPECIFIED, THIRD TRIMESTER
== END 2024-07-16 17:36 | disposition home or self-care (01) ==
LOC: FBPOP 15:56
PROVIDERS: ATTEND Obstetrics & Gynecology Obstetrics
DX: Z53.9 Procedure and treatment not carried out, unspecified reason (principal)
CPT/HCPCS: 59025; 82570; 84156; 82565; 83615; 84450; 84460; 84520; 84550; 85025; 81001; G0463; 99215

== ENCOUNTER 2024-08-12 07:58 | Inpatient (IN) | payer OTHER ==
[2024-08-12] MEDS ORDERED: CARBOPROST TROMETHAMINE 250 MCG/ML 1 ML AMP IM PRN (10:43)
[2024-08-12] MEDS ORDERED: METHYLERGONOVINE 0.2 MG/ML 1 ML AMP IM PRN (10:43)
[2024-08-12] MEDS ORDERED: miSOPROStoL 200 MCG TAB PO PRN (10:43)
[2024-08-12] MEDS ORDERED: OXYTOCIN 10 UNIT/ML 1 ML VIAL IM PRN (10:43)
[2024-08-12] MEDS ORDERED: TRANEXAMIC 1,000 MG/100ML-NACL 1,000 MG in EMPTY BAG 1 BAG IV PRN (10:43)
[2024-08-12] MEDS ORDERED: OXYTOCIN 30 UNITS/500 ML NS 30 UNIT in SALINE 1 500ML.BAG IV SCH (10:45)
[2024-08-12] MEDS: LACTATED RINGERS 1,000 ML IV SCH ×2 (11:06→19:58)
[2024-08-12 11:22] LABS: Basophils % (A) 0 %; Eosinophils % (A) 0 %; Lymphocytes # (A) 1.6 k/uL (1.0-4.8); Lymphocytes % (A) 22 %; MCH 28.3 pg (25.0-35.0); MCHC 32.4 g/dL (31.0-37.0); MCV 87.2 fL (80.0-100.0); Mean Platelet Volume 9.2; Monocytes # (A) 0.4 k/uL (0-1.0); Monocytes % (A) 6 %; Neutrophils # (A) 5.2 k/uL (1.3-7.7); Neutrophils % (A) 71 %; Platelet Count 204 k/uL (150-450); RBC 4.59 m/uL (3.80-5.40); RDW 14.3 % (11.5-15.5); WBC 7.4 k/uL (3.8-10.6)
[2024-08-12] MEDS: CITRIC ACID-SODIUM CITRATE 15 ML CUP PO ONE (11:32)
[2024-08-12] MEDS: LACTATED RINGERS 1,000 ML IV ONE (11:34)
[2024-08-12 11:50] LABS: Glucose,Whole Blood 76 mg/dL (70-110)
[2024-08-12] MEDS ORDERED: MORPHINE SULFATE (PF) 0.3 MG/0.3 ML SYR ONE (12:03)
[2024-08-12] MEDS ORDERED: ONDANSETRON 4 MG/2 ML VIAL ONE (12:03)
[2024-08-12] MEDS ORDERED: OXYTOCIN 10 UNIT/ML 1 ML VIAL ONE (12:03)
[2024-08-12] MEDS ORDERED: PHENYLEPHRINE-0.9% NACL SYG 1,000 MCG/10 ML SYRINGE ONE (12:03)
[2024-08-12] MEDS ORDERED: diphenhydrAMINE 50 MG/ML 1 ML VIAL IVP PRN ×2 (12:50→13:03)
[2024-08-12] MEDS ORDERED: KETOROLAC 15 MG/ML 1 ML VIAL IVP PRN (12:50)
[2024-08-12] MEDS ORDERED: NALOXONE 0.4 MG/ML 1 ML VIAL IV PRN ×2 (12:50→13:03)
[2024-08-12] MEDS ORDERED: ONDANSETRON 4 MG/2 ML VIAL IVP PRN ×2 (12:50→13:03)
[2024-08-12] MEDS ORDERED: HYDROmorphone 0.5 MG/0.5 ML SYRINGE IVP PRN (12:50)
[2024-08-12] MEDS ORDERED: ZOLPIDEM 5 MG TAB PO PRN (13:03)
[2024-08-12] MEDS ORDERED: SIMETHICONE 80 MG CHEWABLE PO PRN (13:03)
[2024-08-12] MEDS ORDERED: diphenhydrAMINE 50 MG CAP PO PRN (13:03)
[2024-08-12] MEDS ORDERED: diphenhydrAMINE 25 MG CAP PO PRN (13:03)
[2024-08-12] MEDS ORDERED: METOCLOPRAMIDE 5 MG/ML 2 ML VIAL IVP PRN (13:03)
--- NOTE | 2024-08-12 13:10 | P.HPOB ---
History of Present Illness H&P Date: 08/12/24 Chief Complaint: IUP 39 4/7, history of c/s x 2, desires repeat, family-planning This is a 28-year-old 4 para 2-0-1-2 at 39-4/7 weeks that presented to labor and delivery for scheduled repeat section. Patient has been receiving routine care which has been essentially uncomplicated. Patient does have a history of seizure disorder, last seizure 2012. Patient was gestational diabetic and poorly controlled with this . Patient did not check her sugars, noncompliant. Patient notes good movement denies contractions vaginal bleeding or loss of fluid. On blood work this patient is up a type of O+, rubella status immune, hepatitis B surface engine negative, HIV negative, RPR is nonreactive, grew beta strep cultures negative. Review of Systems Constitutional: Denies chills, Denies fatigue, Denies fever Ears, nose, mouth and throat: Denies headache Cardiovascular: Reports leg edema Respiratory: Denies dyspnea Gastrointestinal: Denies constipation, Denies diarrhea, Denies nausea, Denies vomiting Genitourinary: Reports Past Medical History Past Medical History: Asthma, Seizure Disorder Additional Past Medical History / Comment(s): PCOS, sciatica. 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, D&C 11/2020 Past Anesthesia/Blood Transfusion Reactions: No Reported Reaction Additional Past Anesthesia/Blood Transfusion Reaction / Comment(s): NO PRIOR ANESTHESIA HX Past Psychological History: Anxiety, Depression Smoking Status: Never smoker Past Alcohol Use History: None Reported Past Drug Use History: None Reported - Past Family History Mother Family Medical History: Diabetes Mellitus, Thyroid Disorder Additional Family Medical History / Comment(s): Liver failure Father Family Medical History: Hypertension Medications and Allergies Home Medications Medication Instructions Recorded Confirmed Type lamoTRIgine 200 mg PO DAILY 12/14/19 08/12/24 History Vit No.180/Iron/Folic 1 tab PO DAILY 11/02/20 08/12/24 History [ Plus Tablet] Escitalopram [Lexapro] 20 mg PO DAILY 07/16/24 08/12/24 History Allergies Allergy/AdvReac Type Severity Reaction Status Date / Time No Known Allergies Allergy Verified 08/12/24 10:42 Exam Osteopathic Statement: *. No significant issues noted on an osteopathic structural exam other than those noted in the History and Physical/Consult. Vital Signs Temp Pulse Resp BP Pulse Ox 08/12/24 12:51 17 08/12/24 10:37 96.9 F L 91 17 135/92 100 Intake and Output 08/11/24 08/12/24 08/12/24 22:59 06:59 14:59 Other: Weight 112.945 kg Physical exam is performed this date, In general this is a well-nourished well- developed female in no acute distress, breathing is nonlabored, heart has a regular rate and rhythm, abdomen is gravid and appropriate for gestational age, cervical exam is deferred, heart tones are to be category 1 and she is not karen. Results Result Diagrams: 08/12/24 10:44 Assessment and Plan (1) Term Current Visit: Yes Status: Acute Code(s): Z34.90 - ENCNTR FOR SUPRVSN OF NORMAL , UNSP, UNSP TRIMESTER SNOMED Code(s): 22884931 (2) GDM, class A1 Current Visit: Yes Status: Acute Code(s): O24.410 - GESTATIONAL DIABETES MELLITUS IN , DIET CONTROLLED SNOMED Code(s): 13335165 (3) History of section Current Visit: Yes Status: Acute Code(s): Z98.891 - HISTORY OF UTERINE SCAR FROM PREVIOUS SURGERY SNOMED Code(s): 942767395 (4) Family planning Current Visit: Yes Status: Acute Code(s): Z30.09 - ENCOUNTER FOR OT GENERAL CNSL AND ADVICE ON CONTRACEPTION SNOMED Code(s): 256206308 Plan: 28-year-old 4 para 2-0-1-2 at 39-4/7 weeks presents for repeat section with bilateral salpingectomy. Patient states she is done with childbearing and wishes bilateral salpingectomy. Patient is counseled on permanence of the procedure all questions are answered and informed consent is obtained. Anesthesia into see patient. Plan repeat section with bilateral salpingectomy
--- NOTE | 2024-08-12 13:14 | P.OP ---
Date of Procedure: 08/12/24 Preoperative Diagnosis: IUP at 39-4/7 weeks, history of section x 2, family status complete. Postoperative Diagnosis: Same plus meconium stained fluid Procedure(s) Performed: Repeat section with bilateral salpingectomy Anesthesia: spinal Surgeon: Nena Jernigan Carpentry Teacher #1: Jud Pillai Estimated Blood Loss (ml): 500 IV fluids (ml): 1,000 Urine output (ml): 150 Pathology: none sent Condition: stable Disposition: observation Indications for Procedure: History of section x 2 desires repeat with bilateral salpingectomy as she is done with childbearing Operative Findings: Viable female delivered at 1231, weight of 7 pounds 7 ounces, Apgars of 9 and 9 at 1 and 5 minutes respectively. Meconium stained fluid was noted Description of Procedure: Patient was taken back to the operating suite where spinal anesthesia was found to be adequate by the anesthesia department. She was prepped and draped in the normal sterile fashion in the dorsal supine position. Pannus retractor was placed to elevate the pannus away from the operating field. Guadarrama catheter was placed under sterile technique. A Pfannenstiel skin incision was made with a scalpel and carried through the underlying layer of fascia fascia was incised and extended laterally. The superior aspect of the fascial incision was then grasped with Caleb clamps, elevated and the rectus muscle was dissected off sharply due to dense adhesive disease. Present turned to the lower edge of the fascia which was grasped with Caleb clamps, elevated and the underlying rectus muscle was dissected off sharply. The rectus muscle was the midline the peritoneum was identified and entered. Incision was then extended superiorly and inferior inferiorly with good visualization of the bladder. The bladder blade was then inserted in the pelvis. Bladder flap was then created using sharp and blunt dissection. Hysterotomy incision was then performed with the scalpel meconium stained fluid was appreciated. was noted to be in vertex presentation and delivered in the usual fashion. The nose and mouth were suctioned umbilical cord was doubly clamped and cut and was handed off to waiting RN. The placenta was delivered manually and the uterus was exteriorized and cleared of all clots and debris. The uterine incision was closed with 0 Vicryl in a running locked fashion, hemostasis was appreciated. The right fallopian tube was then elevated and the LigaSure device was used to transect the mesosalpinx to the cornual region. Hemostasis was noted throughout. This was then repeated on the opposite side. Tubal segments were sent to pathology for analysis. The uterine incision was inspected found to be hemostatic and the uterus was returned to the abdomen. The hysterotomy site was inspected and found to be hemostatic. The gutters were cleared of all clots and debris. The fascia was then closed with 0 Vicryl in a running fashion from 1 lateral edge to the midline and the other lateral edge to the midline. The rectus muscles have been inspected and found to be hemostatic. The subcutaneous tissue was irrigat ed found to be hemostatic and closed with 3-0 Vicryl in a running fashion. Skin was closed with 4-0 Vicryl in a subcuticular fashion. All counts were noted be correct x 2. Patient and infant tolerated delivery well and are resting comfortably.
[2024-08-12] MEDS: ACETAMINOPHEN IV (For NPO) 1,000 MG in EMPTY BAG 1 BAG IVPB ONE (14:58)
[2024-08-12] MEDS: diphenhydrAMINE 50 MG/ML 1 ML VIAL IVP PRN (15:09)
[2024-08-12] MEDS: IBUPROFEN IV 800 MG in SODIUM CHLORIDE 0.9% 250 ML IV ONE (18:36)
[2024-08-12] MEDS: SENNOSIDES-DOCUSATE SODIUM 1 EACH TAB PO SCH (19:57)
[2024-08-13] MEDS: ACETAMINOPHEN TAB 500 MG TAB PO SCH (00:31)
[2024-08-13] MEDS: lamoTRIgine 100 MG TAB PO SCH (01:02)
[2024-08-13] MEDS: ESCITALOPRAM 20 MG TAB PO SCH (01:02)
[2024-08-13 03:53] LABS: Basophils % (A) 0 %; Eosinophils # (A) 0.1 k/uL (0-0.7); Eosinophils % (A) 1 %; HCT 33.1 % (34.0-46.0); Lymphocytes # (A) 1.6 k/uL (1.0-4.8); Lymphocytes % (A) 19 %; MCH 29.1 pg (25.0-35.0); MCHC 33.3 g/dL (31.0-37.0); MCV 87.4 fL (80.0-100.0); Mean Platelet Volume 10.2; Monocytes # (A) 0.4 k/uL (0-1.0); Monocytes % (A) 5 %; Neutrophils # (A) 6.4 k/uL (1.3-7.7); Neutrophils % (A) 75 %; Platelet Count 140 k/uL (150-450); RBC 3.78 m/uL (3.80-5.40); RDW 14.8 % (11.5-15.5); WBC 8.5 k/uL (3.8-10.6)
[2024-08-13] MEDS: IBUPROFEN 800 MG TAB PO SCH (05:15)
[2024-08-13] MEDS ORDERED: lamoTRIgine 100 MG TAB PO SCH (09:00)
[2024-08-13] MEDS ORDERED: ESCITALOPRAM 20 MG TAB PO SCH (09:00)
--- NOTE | 2024-08-13 09:11 | P.PNOBGPC ---
Subjective - Subjective Principal diagnosis: Postop day 1, repeat section with bilateral salpingectomy Interval history: Doing well postoperatively. She is ambulating and voiding without difficulty. She is tolerating a regular diet without nausea or vomiting. She states her pain is well-controlled. She denies concerns. She is bottlefeeding Patient reports: Reports appetite normal, Reports voiding normally, Reports pain well controlled, Reports ambulating normally : doing well, bottle feeding (Special care nursery) Objective - Vital Signs Latest vital signs: Vital Signs Temp Pulse Resp BP Pulse Ox 08/13/24 08:00 97.7 F 73 17 107/67 100 08/13/24 05:09 15 08/13/24 00:36 98.0 F 89 16 111/72 97 08/12/24 20:10 98.3 F 74 16 111/65 98 08/12/24 18:00 16 08/12/24 16:29 98.4 F 83 16 108/69 99 08/12/24 16:00 18 99 08/12/24 15:05 62 17 109/60 100 08/12/24 14:50 63 17 107/60 99 08/12/24 14:35 71 17 108/63 99 08/12/24 14:20 62 17 107/60 98 08/12/24 14:05 68 17 104/58 99 08/12/24 13:51 17 98 08/12/24 13:50 97.8 F 75 17 102/58 98 08/12/24 13:35 82 17 107/60 98 08/12/24 13:20 77 18 98/56 100 08/12/24 13:05 83 17 105/55 99 08/12/24 12:51 17 98 08/12/24 10:37 96.9 F L 91 17 135/92 100 Intake and Output 08/12/24 08/13/24 08/13/24 22:59 06:59 14:59 Intake Total 500 Output Total 1127 300 Balance -627 -300 Intake: Oral 500 Output: Urine 600 300 Uretheral (Guadarrama) 400 Output, Quantitative 527 Blood Loss Other: Voiding Method Indwelling Catheter # Voids 1 - Exam Extremities: Present: normal, edema Abdomen: Present: normal appearance, soft Incision: Present: normal, dry, intact Uterus: Present: normal, firm - Labs Labs: Abnormal Lab Results - Last 24 Hours (Table) 08/13/24 Range/Units 03:19 RBC 3.78 L (3.80-5.40) m/uL Hgb 11.0 L (11.4-16.0) gm/dL Hct 33.1 L (34.0-46.0) % Plt Count 140 L (150-450) k/uL Assessment and Plan (1) Term Current Visit: Yes Status: Acute Code(s): Z34.90 - ENCNTR FOR SUPRVSN OF NORMAL , UNSP, UNSP TRIMESTER SNOMED Code(s): 31467244 (2) GDM, class A1 Current Visit: Yes Status: Acute Code(s): O24.410 - GESTATIONAL DIABETES MELLITUS IN , DIET CONTROLLED SNOMED Code(s): 47848201 (3) History of section Current Visit: Yes Status: Acute Code(s): Z98.891 - HISTORY OF UTERINE SCAR FROM PREVIOUS SURGERY SNOMED Code(s): 041006582 (4) Family planning Current Visit: Yes Status: Acute Code(s): Z30.09 - ENCOUNTER FOR OT GENERAL CNSL AND ADVICE ON CONTRACEPTION SNOMED Code(s): 069730516 (5) S/P section Current Visit: No Status: Acute Code(s): Z98.891 - HISTORY OF UTERINE SCAR FROM PREVIOUS SURGERY SNOMED Code(s): 820427874 Plan: Patient is doing well postoperatively. Plan to continue routine postoperative care Encourage increased ambulation
--- NOTE | 2024-08-13 09:44 | P.PN ---
Progress Note - Text Progress Note Date: 08/13/24 (647) Anesthesia Postop day 1 Subjective: Status Post section with Duramorph. Patient seen and examined. Doing well without complaint. VAS 5/10. No nausea or vomiting. Mild pruritus tolerable.. Denies fever. Gross lower extremity strength intact. Without apparent anesthetic complications. Objective: Vital signs reviewed Heart: Regular Rate Lungs: Good chest excursion Abdomen: Appears nondistended Assessment: Status post section with Duramorph postop day 1 Plan: 1. Continue current care with your medical management. Anticipated end to the duration of the Duramorph around surgery time today. You may see increased pain needs around this time. 2. This note was dictated using [employer] software. Please be advised there is a potential for misspellings or errors in metal neutralizer.
[2024-08-13] MEDS ORDERED: IBUPROFEN 800 MG TAB PO SCH (18:00)
[2024-08-13] MEDS: PRENATAL VIT-IRON-FOLIC ACID 1 EACH TABLET PO SCH (20:29)
--- NOTE | 2024-08-14 11:14 | P.DS ---
Providers Date of admission: 08/12/24 10:31 Expected date of discharge: 08/14/24 Attending physician: Nena Jernigan Primary care physician: Stated None - Discharge Diagnosis(es) (1) Term Current Visit: Yes Status: Acute (2) GDM, class A1 Current Visit: Yes Status: Acute (3) History of section Current Visit: Yes Status: Acute (4) Family planning Current Visit: Yes Status: Acute (5) S/P section Current Visit: No Status: Acute Hospital Course: This is a 28-year-old 4 now para 3-0-1-3 that presented to labor and delivery on 08/12 for scheduled repeat section with bilateral salpingectomy. Patient was receiving intermittent care, she did receive care with [facility] and then transferred to [place] where she did establish with another physician, Hong presented to [place] and finished care with myself. Patient has a prior history of a 15-week loss and subsequent dilation curettage for retained placenta. Followed by 2 prior C- sections. Patient states she has done with childbearing and does wish permanent sterilization. Patient's has been complicated by diagnosis of gestational diabetes for which she has been noncompliant in checking her blood sugars. In addition she has a history of seizures for which she takes Lamictal last seizure 2012. On blood work this patient has a blood type of O+, rubella status immune, hepatitis B surface antigen negative, HIV negative, RPR is nonreactive, grew beta strep cultures negative. Patient Condition at Discharge: Good Plan - Discharge Summary New Discharge Prescriptions: No Action lamoTRIgine 200 mg PO DAILY Vit No.180/Iron/Folic [ Plus Tablet] 1 tab PO DAILY Escitalopram [Lexapro] 20 mg PO DAILY Discharge Medication List lamoTRIgine 200 mg PO DAILY 12/14/19 [History] Vit No.180/Iron/Folic [ Plus Tablet] 1 tab PO DAILY 11/02/20 [History] Escitalopram [Lexapro] 20 mg PO DAILY 07/16/24 [History] Follow up Appointment(s)/Referral(s): Nena Jernigan DO [Doctor of Osteopathic Medicine] - 08/26/24 10:30 am (Post Appointment 09-28-2024 at 1:00pm) Patient Instructions/Handouts: (DC), (GEN) Activity/Diet/Wound Care/Special Instructions: No tub baths or intercourse until 6 weeks postoperatively. [id number] ibuprofen 600 mg or 3 tablets every 6 hours as needed for pain. Patient is to call the office and make a routine postoperative visit for 2 weeks. Should she have any concerns prior to this visit she is urged to call the office. Discharge Disposition: HOME SELF-CARE
[2024-08-15 08:20] VITALS: BP 124/80; PULSE 99; RESP 16; TEMP 97.9
== END 2024-08-15 15:27 | disposition home or self-care (01) | DRG 539 ==
LOC: 4FBP 10:31
PROVIDERS: ADMIT Obstetrics & Gynecology Obstetrics; ATTEND Obstetrics & Gynecology Obstetrics
PROC: 0UB70ZZ Excision of Bilateral Fallopian Tubes, Open Approach (ICD-10-PCS; 2024-08-12)
PROC: 10D00Z1 Extraction of Products of Conception, Low, Open Approach (ICD-10-PCS; principal; 2024-08-12 12:00)
DX: O34.211 Maternal care for low transverse scar from previous cesarean delivery (principal); O24.420 Gestational diabetes mellitus in childbirth, diet controlled; L29.9 Pruritus, unspecified; O77.0 Labor and delivery complicated by meconium in amniotic fluid; Z37.0 Single live birth; Z3A.39 39 weeks gestation of pregnancy; Z30.2 Encounter for sterilization; Z91.198 Patient's noncompliance with other medical treatment and regimen for other reason; Z86.69 Personal history of other diseases of the nervous system and sense organs; Z79.899 Other long term (current) drug therapy; Z83.3 Family history of diabetes mellitus; Z87.59 Personal history of other complications of pregnancy, childbirth and the puerperium
CPT/HCPCS: 85025; 86850; 86900; 86901; 88302